=== PATIENT | female | born 1965 | race Two or more races ===

== ENCOUNTER 2021-10-01 11:12 | Outpatient (REF) | payer OTHER, SELFPAY ==
--- NOTE | ~2021-10-01 | XR_ITS ---
EXAMINATION: XR LUMBOSACRAL SPINE WITH OBLIQUES CLINICAL INFORMATION: M54.50 - Low back pain, unspecified COMPARISON: Chest radiographs 11/02/2018 TECHNIQUE: Lumbar spine is imaged in 5 views: AP, lateral, lateral view coned to lumbosacral junction, and bilateral oblique. FINDINGS: There is normal lumbar segmentation with 5 nonrib-bearing lumbar vertebrae with normal lumbar lordosis. There is mild accentuated superior endplate concavity at L1 without wedging of the vertebral body. Finding is new from lateral chest radiographs 11/02/2018. There are degenerative disc changes at this level with mild endplate sclerosis and disc narrowing and anterior vertebral spurring. Disc narrowing also present at L4-L5, and borderline disc narrowing at L2-L3. There is no destructive process. No spondylolysis or spondylolisthesis. The SI joints and visualized sacrum are unremarkable. 2 surgical clips are seen right lower quadrant abdomen. XR/XR lumbar spine 4V min IMPRESSION: 1. Accentuated superior endplate concavity L1 with associated degenerative disc changes T12-L1. Findings new since remote chest radiographs 11/02/2018. 2. Degenerative disc changes also at L2-L3 and L4-L5. 3. SI joints unremarkable.
[2021-10-01 14:44] LABS: Alanine Aminotransferase 23 U/L (0-31); Anion Gap 13 (12-20); Aspartate Amino Transferase 30 U/L (5-31); Blood Urea Nitrogen 7 mg/dL (9-16); Calcium 9.4 mg/dL (8.4-10.2); Carbon Dioxide 26 mmol/L (22-29); Chloride 99 mmol/L (96-108); Cholesterol 155 mg/dL; Estimated Glomerular Filt Rate > 60; Glucose Fasting 109 mg/dL (60-99); HDL Cholesterol 50 mg/dL; LDL Cholesterol Calculated 76 mg/dl; Sodium 134 mmol/L (135-145); Triglycerides 147 mg/dL
[2021-10-01 14:54] LABS: TSH reflex Free T4 1.91 uIU/mL (0.32-4.0); Vitamin D 25-OH Total 16.5 ng/mL (>30)
== END 2021-10-01 11:13 | disposition home or self-care (01) ==
LOC: HO.HMGCX 11:12
PROVIDERS: PCP Internal Medicine; Visit Provider Internal Medicine
DX: G89.29 Other chronic pain (principal); M54.50 Low back pain, unspecified; R53.83 Other fatigue; E78.5 Hyperlipidemia, unspecified; I10 Essential (primary) hypertension; Z78.0 Asymptomatic menopausal state; Z83.49 Family history of other endocrine, nutritional and metabolic diseases
CPT/HCPCS: 36415; 72110; 80048; 80061; 82306; 84443; 84450; 84460

== ENCOUNTER → 2022-01-14 14:32 | Outpatient (BNVA) | payer OTHER, SELFPAY | PROVIDERS: PCP Internal Medicine; Referring Provider Internal Medicine; Visit Provider Nurse Practitioner Family | DX: Z01.818 Encounter for other preprocedural examination (principal); K58.9 Irritable bowel syndrome, unspecified | CPT/HCPCS: 99202 ==

== ENCOUNTER 2022-01-24 12:09 | Outpatient (REF) | payer OTHER, SELFPAY ==
--- NOTE | ~2022-01-24 | MM_ITS ---
EXAMINATION: MM SCREENING DIGITAL BREAST TOMOSYNTHESIS, BILATERAL CLINICAL INFORMATION: Screening. Asymptomatic. The lifetime risk of breast cancer based on the Tyrer-Cuzick Model is 9%. COMPARISON: Outside mammography: 03/20/2019, 04/05/2017, 03/28/2016 ([facility]). TECHNIQUE: Digital breast tomosynthesis is performed in both the craniocaudal and mediolateral oblique views along with computer-aided detection (CAD). Synthesized 2D images are generated from the tomosynthesis. Additional bilateral CC and additional bilateral MLO views are provided. FINDINGS: There are scattered areas of fibroglandular density (ACR BI-RADS breast composition Category b). There are no significant masses, abnormal calcifications, or other abnormalities. Parenchymal pattern is similar to prior outside studies. No developing density or interval architectural abnormality. The axilla and skin contours are unremarkable. MM/MM tomosynthesis screening BI IMPRESSION: No mammographic evidence of malignancy. ASSESSMENT: BI-RADS 1: Negative RECOMMENDATION: Routine annual mammography screening. This patient's information was entered into a reminder system with a target due date for their next mammogram.
--- NOTE | 2022-01-24 17:41 | PFT_ITS ---
FLOWS: FEV1 75% of predicted at 2.05 L. FVC 77% of predicted at 2.68 L. FEV1 to FVC ratio of 0.76. No bronchodilator response. LUNG VOLUMES: Total lung capacity 92% of predicted at 4.67 L. Residual volume 108% of predicted at 2.03 L. Slow vital capacity 83% of predicted at 2.64 L. Expiratory reserve volume 21% of predicted at 0.21 L. Diffusion capacity is mildly decreased, diffusion capacity corrects to normal after adjustment for alveolar ventilation. IMPRESSION: No obstructive or restrictive ventilatory defect. No bronchodilator response. Decreased expiratory reserve volume suggests extrathoracic restriction, likely secondary to abdominal obesity. Jorge Alberto Huggins MD AP/MODL / [id number]
== END 2022-01-24 12:10 | disposition home or self-care (01) ==
LOC: HO.RESP 12:09
PROVIDERS: PCP Internal Medicine; Visit Provider Internal Medicine
DX: Z12.31 Encounter for screening mammogram for malignant neoplasm of breast (principal); F17.210 Nicotine dependence, cigarettes, uncomplicated
CPT/HCPCS: 77063; 77067; 94060; 94727; 94729

== ENCOUNTER → 2022-02-17 13:08 | Outpatient (BNVA) | payer OTHER, SELFPAY | PROVIDERS: PCP Internal Medicine; Visit Provider Surgery Vascular Surgery | DX: I83.11 Varicose veins of right lower extremity with inflammation (principal) | CPT/HCPCS: 99202 ==

== ENCOUNTER 2022-04-27 12:18 | Outpatient (REF) | payer OTHER, SELFPAY ==
[2022-04-27 14:12] LABS: Estimated Average Glucose 111 mg/dL; Hemoglobin A1c % 5.5 %
[2022-04-27 14:21] LABS: Alanine Aminotransferase 32 U/L (0-31); Anion Gap 14 (12-20); Aspartate Amino Transferase 33 U/L (5-31); Blood Urea Nitrogen 13 mg/dL (9-16); Calcium 9.3 mg/dL (8.4-10.2); Carbon Dioxide 27 mmol/L (22-29); Chloride 100 mmol/L (96-108); Cholesterol 143 mg/dL; Estimated Glomerular Filt Rate > 60; Glucose Fasting 123 mg/dL (60-99); HDL Cholesterol 57 mg/dL; LDL Cholesterol Calculated 52 mg/dl; Potassium 3.7 mmol/L (3.3-5.1); Sodium 137 mmol/L (135-145); Triglycerides 172 mg/dL
[2022-04-27 14:33] LABS: Vitamin D 25-OH Total 27.2 ng/mL (>30)
== END 2022-04-27 12:19 | disposition home or self-care (01) ==
LOC: HO.HMGCLDS 12:18
PROVIDERS: PCP Internal Medicine; Visit Provider Internal Medicine
DX: E55.9 Vitamin D deficiency, unspecified (principal); E66.01 Morbid (severe) obesity due to excess calories; E78.5 Hyperlipidemia, unspecified; F32.A Depression, unspecified; F41.9 Anxiety disorder, unspecified; I10 Essential (primary) hypertension; I83.899 Varicose veins of unspecified lower extremity with other complications
CPT/HCPCS: 36415; 80048; 80061; 82306; 83036; 84450; 84460

== ENCOUNTER 2022-06-01 08:33 | Day surgery (SDC) | payer OTHER, SELFPAY ==
[2022-05-27 09:53] VITALS: BMI 41.1
--- NOTE | 2022-05-31 08:42 | P.CONAN_ITS ---
Documented by User: Ayla Bill NP 05/31/22 08:44 HPI - Anesthesia Eval Consult details Narrative: 56yo F for Colonoscopy PMFSH Active Problems Active Problems: All Active Problems (Updated 04/27/22 @ 12:17 by Yvette Louis MD) Peripheral neuropathy (Acute) Smoker unmotivated to quit (Acute) Varicose veins of right lower extremity with inflammation (Acute) Immunization declined (Acute) Varicose veins of leg with swelling (Acute) Vitamin D deficiency, unspecified (Acute) Environmental allergies (Acute) Anxiety and depression (Acute) Morbid obesity (Acute) Family history of thyroid disease in mother (Acute) Cigarette smoker (Acute) Dyslipidemia (Acute) Essential hypertension (Acute) Chronic low back pain (Acute) Past Medical History Medical History Anxiety and depression Chronic low back pain Cigarette smoker Dyslipidemia Environmental allergies Essential hypertension Family history of thyroid disease in mother Immunization declined Morbid obesity Peripheral neuropathy Smoker unmotivated to quit Varicose veins of leg with swelling Vitamin D deficiency, unspecified Family History Family History Father Substance use disorder Social History Social History Housing: Apartment Patient Tobacco Use Status: Current everyday Tobacco user Cigarettes Per Day: 10 e-Cigarette/Vaping Use: Never Used Advance Directives: No Advance Directives Information Provided: Yes service: No Current occupational status: unemployed Cognitive needs: No Hearing needs: No Vision needs: No Meds Allergies Allergy/AdvReac Type Severity Reaction Status Date / Time shellfish derived Allergy Unknown anaphylaxis Verified 04/27/22 17:43 [SHELLFISH DERIVED] phenazopyridine AdvReac Unknown VOMITING Verified 04/27/22 17:43 [From PYRIDIUM] pregabalin [From LYRICA] AdvReac Unknown nausea and Verified 04/27/22 17:43 vomiting Home Medications Medication Instructions Recorded Confirmed Last Taken Type azelastine 137 mcg (0.1 %) nasal 2 spray intranasal BID 06/26/21 01/08/22 Unknown History spray aerosol olopatadine 0.1 % eye drops 0 drp ophthalmic (eye) 09/23/21 01/08/22 Unknown History vitamin B complex (B 1 tab PO DAILY 09/23/21 01/08/22 Unknown History Complex-Vitamin B12 tablet) diphenhydramine HCl 25 mg tablet 25 mg PO QID PRN 10/25/21 01/08/22 Unknown History (Benadryl Allergy) zinc 50 mg tablet 50 mg PO DAILY 01/08/22 01/08/22 Unknown History Exam Exam Date and Time: May 31, 2022 0842 Height,Weight and Vital Signs: Height 5 ft 4 in Weight 108.862 kg Pertinent Lab Results Pertinent Lab Results: Laboratory Tests 11/02/18 04/27/22 05:47 12:22 WBC 8.1 Hgb 15.3 Hct 44.9 Plt Count 168 D Sodium 137 Potassium 3.7 Chloride 100 Carbon Dioxide 27 BUN 13 D Creatinine 0.67 Narrative Narrative: PFT 01/2022 IMPRESSION:? No obstructive or restrictive ventilatory defect.? No bronchodilator response. Decreased expiratory reserve volume suggests extrathoracic restriction, likely secondary to abdominal obesity. Assessment and Plan Assessment Anesthesia Assessment: Chart Reviewed Documented by User: Emilie Andino MD 06/01/22 09:01 [facility] Past Medical History Medical History Anxiety and depression Chronic low back pain Cigarette smoker Dyslipidemia Environmental allergies Essential hypertension Family history of thyroid disease in mother Immunization declined Morbid obesity Peripheral neuropathy Smoker unmotivated to quit Varicose veins of leg with swelling Vitamin D deficiency, unspecified Family History Family History Father Substance use disorder Family history of problems with anesthesia: No Surgical History History of Problems with Anesthesia: No Social History Social History Housing: Apartment Patient Tobacco Use Status: Current everyday Tobacco user Cigarettes Per Day: 10 e-Cigarette/Vaping Use: Never Used Advance Directives: No Advance Directives Information Provided: Yes service: No Current occupational status: unemployed Cognitive needs: No Hearing needs: No Vision needs: No Meds Allergies Allergy/AdvReac Type Severity Reaction Status Date / Time shellfish derived Allergy Unknown anaphylaxis Verified 04/27/22 17:43 [SHELLFISH DERIVED] phenazopyridine AdvReac Unknown VOMITING Verified 04/27/22 17:43 [From PYRIDIUM] pregabalin [From LYRICA] AdvReac Unknown nausea and Verified 04/27/22 17:43 vomiting Home Medications Medication Instructions Recorded Confirmed Last Taken Type azelastine 137 mcg (0.1 %) nasal 2 spray intranasal BID 06/26/21 01/08/22 Unknown History spray aerosol olopatadine 0.1 % eye drops 0 drp ophthalmic (eye) 09/23/21 01/08/22 Unknown History vitamin B complex (B 1 tab PO DAILY 09/23/21 01/08/22 Unknown History Complex-Vitamin B12 tablet) diphenhydramine HCl 25 mg tablet 25 mg PO QID PRN 10/25/21 01/08/22 Unknown History (Benadryl Allergy) zinc 50 mg tablet 50 mg PO DAILY 01/08/22 01/08/22 Unknown History Exam Airway Mallampati Class: II TM Dist: >3cm Neck ROM: Full Heart: rrr Lungs: cta Assessment and Plan Assessment Anesthesia Assessment: Anesthesia Plan Discussed and Chart Reviewed Final Anesthetic Review Family History of Problems with Anesthesia: No History of Problems with Anesthesia: No NPO: Yes ASA Class: III Final Preanesthetic Review: No Changes in Pt Med Stat, Meds/Allgs Chart Reviewed and Consent Obtained/Reviewed Patient Risk: Intermediate Procedure Risk: Intermediate Anesthetic Plan Anesthetic Plan: MAC: Disposition: Standard PACU
[2022-06-01 08:43] VITALS: BMI 41.1
[2022-06-01 09:13] VITALS: BP 170/71; PULSE 84; RESP 18; TEMP 36.6; O2SAT 98
[2022-06-01] MEDS: Lactated Ringers 1,000 ML 100 ML IVCONT (09:13)
--- NOTE | 2022-06-01 09:31 | P.HPSUR_ITS ---
Pre-Procedural Eval Section A Date of Service: 06/01/22 Section B Chief Complaint: screening Relevant Family History (Specify if Yes): No Relevant Social History: Tobacco Use (alcohol use) Present Medications: see Short Stay Collaborative assessment Medical History: Significant History (Anxiety and depression Chronic low back pain Cigarette smoker Dyslipidemia Environmental allergies Essential hyperten flavia Family history of thyroid disease in mother Immunization declined Morbid obesity Peripheral neuropathy Smoker unmotivated to quit Varicose veins of leg with swelling Vitamin D de) History of Previous Operations: No relevant previous surgery Allergies: Allergies Allergy/AdvReac Type Severity Reaction Status Date / Time shellfish derived Allergy Unknown anaphylaxis Verified 04/27/22 17:43 [SHELLFISH DERIVED] phenazopyridine AdvReac Unknown VOMITING Verified 04/27/22 17:43 [From PYRIDIUM] pregabalin [From LYRICA] AdvReac Unknown nausea and Verified 04/27/22 17:43 vomiting Review of Systems Sugical H&P ROS: Negative: Constitution, Cardiovascular, Respiratory, Neurological, Psychiatric, Hem-Onc, Allergic/Immunologic, Gastrointestinal, Genitourinary, Musculoskeletal, Integumentary, Endocrine and Eyes/Ears/Nose/Throat Exam Surgical H&P Exam: Normal: HEENT, Normal: Heart, Normal: Lungs, Normal: Extremities, Normal: Abdomen, Normal: Skin and Normal: Neurological Plan Diagnosis/Plan: Unchanged I have reviewed the history and physical and performed a pertinent physical examination on my patient. No changes have occurred unless specified.
--- NOTE | 2022-06-01 09:33 | W.PM.OPN ---
Operative Note Operative Note Date of Service: 06/01/22 Narrative: Operative Information Procedure Description: Colonoscopy Indication: screening Anesthesia: MAC COLONOSCOPY Instrument: Olympus variable stiffness pediatric scope 190L Colonoscopy Monitoring: Vital signs and clinical assessment, continuous EKG monitoring, Pulse oximetry, Carbon Dioxide monitoring and blood pressure monitoring were done throughout the procedure. Colon withdrawal time was 31 minutes. Procedure: The patient was placed in the left lateral decubitis position and pre-procedure medications were administered. After a digital rectal examination of the ano-rectum, the video colonoscope was inserted into the rectum and advanced through the colon to the cecum/TI. The colonoscope was slowly withdrawn in a retrograde panoramic fashion and the colon mucosa was carefully examined including a retroflexed view of the rectum. Findings and interventions are described below. Procedure Difficulty: difficult due to looping, patient moving a lot even with propofol Findings: Terminal Ileum-not intubated Cecum:several diverticula seen. 12 mm sessile polyp injected with ORISE and then removed with hot snare, with edges ablated with soft tip coag and then one clip applied for hemostasis. Ascending Colon: normal Transverse Colon -normal Descending Colon: 6-7 mm sessile polyp removed with forceps and 8-9 mm sessile polyp removed with cold snare Sigmoid Colon: moderate diverticulosis Rectum: Retroflexion with small internal hemorrhoids, grade I, 2 sessile polyps 5-6 mm removed with cold forceps Anorectum - normal Colon preparation: [place] Bowel Preparation Scale Right colon; 2 Transverse colon: 2 Left colon; 2 (0 = Unprepared colon segment with mucosa not seen due to solid stool that cannot be cleared. 1 = Portion of mucosa of the colon segment seen, but other areas of the colon segment not well seen due to staining, residual stool and/or opaque liquid. 2 = Minor amount of residual staining, small fragments of stool and/or opaque liquid, but mucosa of colon segment seen well. 3 = Entire mucosa of colon segment seen well with no residual staining, small fragments of stool or opaque liquid) Impression and Post Procedure Diagnosis: polyps internal hemorrhoids diverticular disease Plan: High fiber diet leaflet Avoid straining at stool, epsom salts and sitz bath, anusol supps or cream Repeat Colonoscopy in 1-2 years due to subtle polyps and patient movement during procedure or earlier if clinically indicated Next time use adult colonoscope Above findings were reviewed with the patient and relevant handouts were provided if indicated.
[2022-06-01 10:35] VITALS: BP 111/63; PULSE 87; RESP 16; TEMP 36.6; O2SAT 96
[2022-06-01 10:50] VITALS: BP 128/65; PULSE 78; RESP 16; O2SAT 98
[2022-06-01 11:05] VITALS: BP 133/77; PULSE 76; RESP 16; TEMP 36.6; O2SAT 98
== END 2022-06-01 11:37 | disposition home or self-care (01) ==
PROVIDERS: PCP Internal Medicine; Visit Provider Internal Medicine Gastroenterology
PROC: 0DJD8ZZ Inspection of Lower Intestinal Tract, Via Natural or Artificial Opening Endoscopic (ICD-10-PCS; CPT 45378; principal; 2022-06-01 10:10)
DX: Z12.11 Encounter for screening for malignant neoplasm of colon (principal); D12.0 Benign neoplasm of cecum; K63.5 Polyp of colon; K62.1 Rectal polyp; K57.30 Diverticulosis of large intestine without perforation or abscess without bleeding; K64.0 First degree hemorrhoids; K58.9 Irritable bowel syndrome, unspecified; I10 Essential (primary) hypertension; E78.5 Hyperlipidemia, unspecified; E55.9 Vitamin D deficiency, unspecified; J44.9 Chronic obstructive pulmonary disease, unspecified; I83.10 Varicose veins of unspecified lower extremity with inflammation; G89.29 Other chronic pain; M54.50 Low back pain, unspecified; Z79.899 Other long term (current) drug therapy; Z88.8 Allergy status to other drugs, medicaments and biological substances; F41.8 Other specified anxiety disorders; F17.210 Nicotine dependence, cigarettes, uncomplicated; Z91.09 Other allergy status, other than to drugs and biological substances
CPT/HCPCS: 45385; 45380; 45381; 88305; J2250

== ENCOUNTER → 2022-06-15 12:57 | Outpatient (BNVA) | payer OTHER, SELFPAY | PROVIDERS: PCP Internal Medicine; Visit Provider Nurse Practitioner Family | DX: K57.90 Diverticulosis of intestine, part unspecified, without perforation or abscess without bleeding (principal); K63.5 Polyp of colon; Z98.890 Other specified postprocedural states | CPT/HCPCS: 99212 ==

== ENCOUNTER 2022-08-09 12:54 | Outpatient (REF) | payer OTHER, SELFPAY ==
--- NOTE | ~2022-08-09 | US_ITS ---
EXAMINATION: US LOWER EXTREMITY VENOUS (REFLUX EXAM), BILATERAL CLINICAL INDICATION: Chronic venous insufficiency with lower extremity varicose veins COMPARISON: None. TECHNIQUE: Color flow triplex imaging and compression Doppler was performed to evaluate both the deep and the superficial systems bilaterally. To evaluate the superficial system, the examination was performed in the upright position. Color-flow Doppler ultrasound and compression ultrasound were utilized. In addition, maneuvers were utilized to demonstrate reflux. FINDINGS: 1. DEEP VENOUS ULTRASOUND OF THE RIGHT LOWER EXTREMITY: Common Femoral Vein: Compressible, normal respiratory variation and augmented flow. Femoral Vein: Compressible, normal color flow and augmentation. Popliteal Vein: Compressible, normal augmentation. Deep Reflux: There is no evidence of reflux in the deep system in either the common femoral vein or the popliteal vein. There is no evidence of a Perry's cyst. 2. SUPERFICIAL ULTRASOUND WITH DOPPLER OF RIGHT LOWER EXTREMITY: GREAT SAPHENOUS VEIN: Saphenofemoral Junction: 0.8 cm; Reflux: 0 ms Proximal Thigh: 0.8 cm; Reflux: 0 ms Mid Thigh: 0.4 cm; Reflux: 0 ms Above Knee: 0.4 cm; Reflux: 0 ms At Knee: 0.3 cm; Reflux: 0 ms Below Knee: 0.2 cm; Reflux: 0 ms Mid Calf: 0.3 cm; Reflux: 0 ms Ankle: 0.3 cm; Reflux: 0 ms DUPLICATED MEDIAL GREAT SAPHENOUS VEIN: Diameter: None Imaged Reflux: NA DUPLICATED LATERAL GREAT SAPHENOUS VEIN: Diameter: 0.2 cm Reflux: None SMALL SAPHENOUS VEIN: Proximal: 0.2 cm; Reflux: 0 ms Distal: 0.2 cm; Reflux: 0 ms VEIN OF GIACOMINI: None Imaged. PERFORATORS: Location: None Imaged Size: NA Reflux: NA VARICOSITIES: Location: Proximal thigh Size: 0.3 cm Reflux: None 3. DEEP VENOUS ULTRASOUND OF THE LEFT LOWER EXTREMITY: Common Femoral Vein: Compressible, normal respiratory variation and augmented flow. Femoral Vein: Compressible, normal color flow and augmentation. Popliteal Vein: Compressible, normal augmentation. Deep Reflux: There is no evidence of reflux in the deep system in either the common femoral vein or the popliteal vein. There is no evidence of a Perry's cyst. 4. SUPERFICIAL ULTRASOUND WITH DOPPLER OF LEFT LOWER EXTREMITY: GREAT SAPHENOUS VEIN: Saphenofemoral Junction: 0.7 cm; Reflux: 0 ms Proximal Thigh: 0.8 cm; Reflux: 0 ms Mid Thigh: 0.5 cm; Reflux: 0 ms Above Knee: 0.3 cm; Reflux: 0 ms At Knee: 0.4 cm; Reflux: 0 ms Below Knee: 0.3 cm; Reflux: 692 ms Mid Calf: 0.2 cm; Reflux: 720 ms Ankle: 0.3 cm; Reflux: 0 ms DUPLICATED MEDIAL GREAT SAPHENOUS VEIN: Diameter: None Imaged Reflux: NA DUPLICATED LATERAL GREAT SAPHENOUS VEIN: Diameter: 0.4 cm Reflux: None SMALL SAPHENOUS VEIN: Proximal: 0.3 cm; Reflux: 0 ms Distal: 0.2 cm; Reflux: 0 ms VEIN OF GIACOMINI: None Imaged. PERFORATORS: Location: None Imaged Size: NA Reflux: NA VARICOSITIES: Location: Proximal and mid thigh Size: 0.3 cm Reflux: None US/US venous duplex LE BI IMPRESSION: Right: No significant venous insufficiency. Small varicose veins within the proximal thigh Left: Borderline mild to moderate focal reflux in the left great saphenous vein within the calf. Small varicose veins within the thigh
== END 2022-08-09 12:55 | disposition home or self-care (01) ==
LOC: HO.US 12:54
PROVIDERS: Visit Provider Surgery Vascular Surgery
DX: I83.11 Varicose veins of right lower extremity with inflammation (principal)
CPT/HCPCS: 93970

== ENCOUNTER → 2022-08-23 13:01 | Outpatient (BNVA) | payer OTHER, SELFPAY | PROVIDERS: PCP Internal Medicine; Visit Provider Surgery Vascular Surgery | DX: I83.11 Varicose veins of right lower extremity with inflammation (principal); I89.0 Lymphedema, not elsewhere classified | CPT/HCPCS: 99212 ==

== ENCOUNTER 2022-11-02 10:32 | Outpatient (AMB) | payer OTHER, SELFPAY ==
--- NOTE | 2022-11-02 10:43 | MHC.PC.OV ---
Vital Signs 11/02/22 10:44 Height 5 ft 4 in Weight 245 lb BMI 42.0 BP 132/72 Blood Pressure Location Lt brachial Position Sitting Pulse 88 Pulse Source Pulse Oximeter Pulse Oximetry (%) 98 Oxygen Delivery Method Room Air Intake Visit Reasons: 6 month follow up Intake Note: Pt is here today for her 6 months f/u HTN Allergies shellfish derived [SHELLFISH DERIVED] Allergy (Severe, Verified 10/19/23 13:59) anaphylaxis phenazopyridine [From PYRIDIUM] Adverse Reaction (Intermediate, Verified 10/19/23 13:59) VOMITING pregabalin [From LYRICA] Adverse Reaction (Intermediate, Verified 10/19/23 13:59) nausea and vomiting Medication List - Last Reconciled 11/02/22 by Yvette Louis MD atorvastatin 20 mg PO DAILY buspirone 5 mg PO BID furosemide 20 mg PO DAILY PRN gabapentin 600 mg (2 x 300 mg) PO TID 30 days losartan-hydrochlorothiazide 50-12.5 mg 1 tab PO DAILY multivitamin 1 tab PO DAILY Ventolin HFA 90 mcg/actuation (albuterol sulfate) 2 puffs inhalation Q6H PRN NS vitamin B complex (B Complex-Vitamin B12 tablet) 1 tab PO DAILY Tobacco use date assessed: 11/02/22 HPI 6 month follow up HPI Details 57-year-old lady with hypertension, dyslipidemia, morbid obesity, here today for follow-up on her blood pressure. She currently takes losartan-HCTZ 50-12.5 mg once a day and takes an occasional furosemide as needed for leg swelling. She continues to smoke, with no desire to quit at present time. Recurrent sneezing current postnasal drainage. [facility] Medical History (Updated 11/19/23 @ 00:49 by Yvette Louis MD) Smoker Knee pain, right Former cigarette smoker Varicose veins of right lower extremity with inflammation Immunization declined Morbid obesity Family history of thyroid disease in mother Chronic low back pain History of uterine cancer Asthma Lymphedema Allergic rhinitis Diverticulosis Peripheral neuropathy Smoker unmotivated to quit Varicose veins of leg with swelling Vitamin D deficiency, unspecified Environmental allergies Anxiety and depression Cigarette smoker Dyslipidemia Essential hypertension Surgical History H/O tubal ligation History of appendectomy H/O colonoscopy Family History Father Substance use disorder Social History Housing: Apartment Patient Tobacco Use Status: Former Tobacco user Tobacco use type: Cigarette Smoked in Last 30 Days: No e-Cigarette/Vaping Use: Never Used Advance Directives: No Advance Directives Information Provided: No Healthcare Proxy: No Guardian: No Patient : No service: No Current occupational status: unemployed Cognitive needs: No Hearing needs: No Vision needs: No Questionnaire PHQ-9 Over the last 2 weeks, how often have you been bothered by any of the following problems? 1. Little interest or pleasure in doing things: several days 2. Feeling down, depressed, or hopeless: not at all 3. Trouble falling or staying asleep, or sleeping too much: nearly every day 4. Feeling tired or having little energy: more than half the days 5. Poor appetite or overeating: several days 6. Feeling bad about yourself - or that you are a failure or have let yourself or your family down: not at all 7. Trouble concentrating on things, such as reading the newspaper or watching television: several days 8. Moving or speaking so slowly that other people could have noticed. Or the opposite - being so fidgety or restless that you have been moving around a lot more than usual: not at all 9. Thoughts that you would be better off or of hurting yourself in some way: not at all Total score: 8 Depression Screening Interpretation: Negative 29086 - PHQ-9 Billing: Yes Source: Developed by Drs. Jimenez Kahn, Harleen Quach, Cedric Mederos and colleagues, with an educational jonathan from [employer]. Thrive Questionnaire Date Thrive assessed: 11/02/22 I am a: Patient What is your living situation today?: I have a steady place to live Within the past 12 months, did the food you bought not last and you didn't have the money to get more?: Never true Within the past 12 months, did you worry whether your food would run out before you got money to buy more?: Never true Do you have trouble paying for medicines?: No Do you have trouble getting transportation to medical appointments?: No Do you have trouble paying your heating and electricity bill?: No Do you have trouble taking care of your child, family member or friend?: No Do you have trouble with day-to-day activities such as bathing, preparing meals, shopping, managing finances, etc.?: Yes Are you currently unemployed and looking for a job?: No Are you interested in more education?: No PRASHANTH-7 AMB Questionnaire PRASHANTH-7 Date PRASHANTH - 7 assessed: 11/02/22 Feeling nervous, anxious, or on edge: 1 = Several days Not being able to stop or control worryin = Several days Worrying too much about different things: 1 = Several days Trouble relaxin = Several days Being so restless that it is hard to sit still: 1 = Several days Becoming easily annoyed or irritable: 1 = Several days Feeling afraid as if something awful might happen: 0 = Not at all Total PRASHANTH-7 score (0-4 normal; 5-9 mild; 10-14 moderate; 15-21 severe): 6 Source: Developed by Drs. Jimenez Kahn, Harleen Quach, Cedric Mederos and colleagues, with an educational jonathan from [employer]. PRASHANTH-7 Assessment Billing PRASHANTH-7 Assessment Tool: PRASHANTH-7 Assessment 78017 Review of Systems Const Reports no additional complaints Eyes Reports no additional complaints ENT Reports no additional complaints and Reports Normal hearing present Card Denies chest pain, Denies chest pain at rest and Denies chest pain with activity Resp Denies chest congestion and Denies cough GI Reports no additional complaints Reports no additional complaints Musc Reports abnormal gait and Reports arthralgias (Right knee) Skin/Breast Denies lesions, Denies rash and Denies wounds Neuro Reports no additional complaints, Reports Normal hearing present, Reports abnormal gait and Denies Sensory deficit (Neuro) Psych Denies no additional complaints Endo Reports no additional complaints Physical exam (Primary Care) Vital Signs: Last Vital Signs Pulse 88 11/02/22 10:44 BP 132/72 11/02/22 10:44 Pulse Ox 98 11/02/22 10:44 Oxygen Delivery Method Room Air 11/02/22 10:44 BMI result Body Mass Index 42.0 Tobacco/Smoking Status: Tobacco use Status Tobacco use date assessed 11/02/22 11/02/22 10:50 Patient Tobacco Use Status Former Tobacco user 11/02/22 10:50 Tobacco use type Cigarette 11/02/22 10:50 e-Cigarette/Vaping Use Never Used 11/02/22 10:50 PHQ-9: PHQ-9 Score PHQ-9: Total score 10 11/02/22 11:14 Depression Screening Interpretation: Negative Thrive Assessment: Date of Thrive Assessment Date Thrive assessed 11/02/22 11/02/22 10:54 Const General: cooperative, no acute distress and alert Orientation/consciousness: patient oriented x3 Limitations: No altered mental status HENMT Ears: hearing grossly normal bilaterally, external ears normal, TM's normal bilaterally and EAC's normal General nose exam: Normal external nose present Face and sinus: Yes face symmetric Mouth: Normal oral and palatal mucosa present, oropharynx normal and moist mucous membranes Eyes Conjunctivae: conjunctivae normal Sclerae: sclerae normal Pupils: Equal, round and reactive pupils present EOM: EOMs intact bilaterally Neck Neck: Yes full ROM and Yes no lymphadenopathy Thyroid: Thyroid normal Resp Effort & Inspection: normal respiratory effort and able to speak in complete sentences Auscultation: clear to auscultation bilaterally Cardio Jugular venous distension: no JVD Rate: regular rate Rhythm: regular rhythm Heart sounds: S1 normal heart sound present and S2 normal heart sound present GI Inspection: Yes normal to inspection Palpation (GI): Soft to palpation Auscultation: normal bowel sounds Back/Spine/Pelvis Thoracic/Lumbar Spine: thoracic and lumbar spine normal to inspection Neuro General: patient oriented x3, gait normal, moves all extremities, no focal motor deficits and CN's II-XI intact bilaterally Cranial nerves: Yes Equal, round and reactive pupils present and Yes Normal hearing present Cognition (Neuro): normal cognition Gait exam (Neuro): Normal gait present Motor exam (neuro): 5/5 motor strength present throughout Sensory Exam: No Sensory deficit (Neuro) Extrem General: Yes normal to inspection, Yes full ROM, Yes normal gait and Yes pedal edema (With superficial varicosities in both lower extremities) Psych Appearance: grossly normal and well kempt Mental Status: mental status grossly normal Speech and movement: Normal speech and movement present Affect: normal affect Attitude: cooperative Thought process: Normal thought process present Thought content: Normal thought content present Assessment and Plan Assessment & Plan (1) Essential hypertension: Code(s): I10 - Essential (primary) hypertension Plan: Blood pressure at goal of less than 130/80. Continue with current medication. Reinforced importance of following a low sodium diet, getting regular exercise, and lowering stress levels. (2) Allergic rhinitis: Code(s): J30.9 - Allergic rhinitis, unspecified Qualifiers: Allergic rhinitis trigger: unspecified Allergic rhinitis seasonality: unspecified Qualified Code(s): J30.9 - Allergic rhinitis, unspecified Plan: Prescription sent for Azelastine nasal spray, to use as directed (3) Vitamin D deficiency, unspecified: Code(s): E55.9 - Vitamin D deficiency, unspecified Plan: Will check vitamin-D level (4) Dyslipidemia: Code(s): E78.5 - Hyperlipidemia, unspecified Plan: Fasting lipid panel ordered, liver enzymes (5) Peripheral neuropathy: Code(s): G62.9 - Polyneuropathy, unspecified Plan: Continued on gabapentin (6) Anxiety and depression: Code(s): F41.9 - Anxiety disorder, unspecified; F32.A - Depression, unspecified Plan: Refill prescription sent for buspirone 5 mg per tab Orders: Orders XR knee RT 4V 11/02/22 M25.561 - Pain in right knee Lipid Panel 11/02/22 E55.9 - Vitamin D deficiency, unspecified, E66.01 - Morbid (severe) obesity due to excess calories, E78.5 - Hyperlipidemia, unspecified, I10 - Essential (primary) hypertension Hemoglobin A1c 11/02/22 E55.9 - Vitamin D deficiency, unspecified, E66.01 - Morbid (severe) obesity due to excess calories, E78.5 - Hyperlipidemia, unspecified, I10 - Essential (primary) hypertension Vitamin D 25-OH Total 11/02/22 E55.9 - Vitamin D deficiency, unspecified, E66.01 - Morbid (severe) obesity due to excess calories, E78.5 - Hyperlipidemia, unspecified, I10 - Essential (primary) hypertension Basic Metabolic Panel Fasting 3 Months E55.9 - Vitamin D deficiency, unspecified, E66.01 - Morbid (severe) obesity due to excess calories, E78.5 - Hyperlipidemia, unspecified, I10 - Essential (primary) hypertension Alanine Aminotransferase 11/02/22 E55.9 - Vitamin D deficiency, unspecified, E66.01 - Morbid (severe) obesity due to excess calories, E78.5 - Hyperlipidemia, unspecified, I10 - Essential (primary) hypertension Aspartate Amino Transferase 11/02/22 E55.9 - Vitamin D deficiency, unspecified, E66.01 - Morbid (severe) obesity due to excess calories, E78.5 - Hyperlipidemia, unspecified, I10 - Essential (primary) hypertension Medications: New tramadol 50 mg PO DAILY PRN 10 tabs 0RF pain M25.561 - Pain in right knee Changed From azelastine 2 sprays intranasal BID J30.9 - Allergic rhinitis, unspecified To azelastine 2 sprays intranasal BID 30 mL 3RF J30.9 - Allergic rhinitis, unspecified From Ventolin HFA 90 mcg/actuation 2 puffs inhalation Q6H PRN 18 grams 2RF shortness of breath or wheezing NS To Ventolin HFA 90 mcg/actuation (albuterol sulfate) 2 puffs inhalation Q6H PRN 18 grams 2RF shortness of breath or wheezing NS Refilled buspirone 5 mg PO BID 180 tabs 1RF Coding Level of Care Code Tele Est Pt Level 3 (15684) Diagnoses Essential hypertension I10 Allergic rhinitis, unspecified seasonality, unspecified trigger J30.9 Allergic rhinitis trigger: unspecified Allergic rhinitis seasonality: unspecified Vitamin D deficiency, unspecified E55.9 Dyslipidemia E78.5 Peripheral neuropathy G62.9 Anxiety and depression F41.9; F32.A Additional Codes PRASHANTH-7 Assessment Billing - PRASHANTH-7 Assessment Tool: PRASHANTH-7 Assessment [id number] ([id number])
[2022-11-02 10:44] VITALS: BP 132/72; PULSE 88; O2SAT 98; BMI 42.0
== END 2022-11-02 11:53 | disposition home or self-care (01) ==
LOC: HO.HMGC 10:32
PROVIDERS: PCP Internal Medicine; Visit Provider Internal Medicine
DX: I10 Essential (primary) hypertension (principal); J30.9 Allergic rhinitis, unspecified; E66.01 Morbid (severe) obesity due to excess calories; Z68.41 Body mass index [BMI] 40.0-44.9, adult; E55.9 Vitamin D deficiency, unspecified; E78.5 Hyperlipidemia, unspecified; G62.9 Polyneuropathy, unspecified; F41.9 Anxiety disorder, unspecified; F32.A Depression, unspecified
CPT/HCPCS: 99213; 99499

== ENCOUNTER 2023-04-04 10:35 | Outpatient (REF) | payer OTHER, SELFPAY ==
[2023-04-04 15:35] LABS: Estimated Average Glucose 111 mg/dL; Hemoglobin A1c % 5.5 %
[2023-04-04 16:03] LABS: Alanine Aminotransferase 25 U/L (0-31); Anion Gap 17 (12-20); Aspartate Amino Transferase 25 U/L (5-31); Blood Urea Nitrogen 10 mg/dL (9-16); Calcium 9.5 mg/dL (8.4-10.2); Carbon Dioxide 25 mmol/L (22-29); Chloride 100 mmol/L (96-108); Cholesterol 140 mg/dL; Estimated Glomerular Filt Rate > 60; Glucose Fasting 121 mg/dL (60-99); HDL Cholesterol 57 mg/dL; LDL Cholesterol Calculated 63 mg/dl; Potassium 3.7 mmol/L (3.3-5.1); Sodium 138 mmol/L (135-145); Triglycerides 103 mg/dL; Vitamin D 25-OH Total 64.8 ng/mL (>30)
== END 2023-04-04 10:36 | disposition home or self-care (01) ==
LOC: HO.HMGCLDS 10:35
PROVIDERS: PCP Internal Medicine; Visit Provider Internal Medicine
DX: E55.9 Vitamin D deficiency, unspecified (principal); E66.01 Morbid (severe) obesity due to excess calories; E78.5 Hyperlipidemia, unspecified; I10 Essential (primary) hypertension
CPT/HCPCS: 36415; 80048; 80061; 82306; 83036; 84450; 84460

== ENCOUNTER 2023-04-07 12:31 | Outpatient (AMB) | payer OTHER, SELFPAY ==
--- NOTE | 2023-04-07 13:05 | A.OFFPC_ITS ---
<Statement entered by Yvette Louis MD - 11/17/25 00:08> This note has been administratively?closed. Vital Signs 04/07/23 13:07 Height 5 ft 4 in Weight 251 lb BMI 43.1 BP 128/86 Blood Pressure Location Rt brachial Position Sitting Pulse 99 Pulse Source Pulse Oximeter Pulse Oximetry (%) 97 Oxygen Delivery Method Room Air Intake Visit Reasons: Annual Physical Intake Note: Pt is here today for her PE Allergies shellfish derived (SHELLFISH DERIVED) Allergy (Severe, Verified 06/23/25 11:31) anaphylaxis phenazopyridine (From PYRIDIUM) Adverse Reaction (Intermediate, Verified 06/23/25 11:31) VOMITING pregabalin (From LYRICA) Adverse Reaction (Intermediate, Verified 06/23/25 11:31) nausea and vomiting sertraline (From Zoloft) Adverse Reaction (Verified 06/23/25 11:31) suicidal ideation bees Allergy (Mild, Uncoded 06/23/25 11:31) Swelling Medication List - Last Reconciled 04/07/23 by Yvette Louis MD atorvastatin 20 mg PO DAILY buspirone 5 mg PO BID cholecalciferol (vitamin D3) 125 mcg PO Q2D furosemide 20 mg PO DAILY PRN gabapentin 600 mg (2 x 300 mg) PO TID 30 days losartan-hydrochlorothiazide 50-12.5 mg 1 tab PO DAILY multivitamin 1 tab PO DAILY Ventolin HFA 90 mcg/actuation (albuterol sulfate) 2 puffs inhalation Q6H PRN NS vitamin B complex (B Complex-Vitamin B12 tablet) 1 tab PO DAILY Tobacco use date assessed: 04/07/23 Dental Screening Dental Screen Date: 04/07/23 Did you have a dental visit in the last 12 months?: Yes Did you have a dental problem in the last 6 months where you did not have access to dental care?: Yes Was dental information given to patient?: Patient has dentist HPI Annual Physical HPI Details 57-year-old lady with dyslipidemia, hype rtension, allergic rhinitis, osteoarthritis, mild intermittent asthma, anxiety depression, and is an active smoker, not motivated at present time, here today for physical exam. She is due for her screening mammogram, up-to-date with her screening colonoscopy done 06/01/2022 with removal of 3 polyps, due again for recheck in 2 years, per Dr. Pierre. [facility] Medical History (Reviewed 09/29/25 @ 12:13 by MAR[facility] Abnormal mammogram of right breast History of uterine cancer Lymphedema Tachycardia Essential hypertension Dyslipidemia Morbid obesity Asthma Nicotine dependence, cigarettes, uncomplicated Allergic rhinitis Environmental allergies Vitamin D deficiency, unspecified Diverticulosis Chronic low back pain Peripheral neuropathy Knee pain, right Varicose veins of leg with swelling Anxiety and depression Family history of thyroid disease in mother Immunization declined Surgical History History of History of tubal ligation History of colonoscopy History of appendectomy Family History Father Substance use disorder Social History Housing: Apartment Patient Tobacco Use Status: Former Tobacco user Tobacco use type: Cigarette e-Cigarette/Vaping Use: Never Used service: No Current occupational status: unemployed Cognitive needs: No Hearing needs: No Vision needs: No Questionnaire Thrive Questionnaire Date Thrive assessed: 11/02/22 AUDIT C Alcohol Use Questionnaire (AUDIT-C) 1. How often do you have a drink containing alcohol?: 2-4 times a month 2. How many drinks containing alcohol do you have on a typical day when you are drinking?: 1 or 2 3. How often do you have six or more drinks on one occasion?: Never Total Score: 2 PRASHANTH-7 AMB Questionnaire PRASHANTH-7 Date PRASHANTH - 7 assessed: 11/02/22 Source: Developed by Drs. Jimenez Kahn, Harleen Quach, Cedric Mederos and colleagues, with an educational jonathan from [employer] Physical exam (Primary Care) Vital Signs: Last Vital Signs Pulse 99 04/07/23 13:07 BP 128/86 04/07/23 13:07 Pulse Ox 97 04/07/23 13:07 Oxygen Delivery Method Room Air 04/07/23 13:07 BMI result Body Mass Index 43.1 Tobacco/Smoking Status: Tobacco use Status Tobacco use date assessed 04/07/23 04/07/23 13:12 Patient Tobacco Use Status Former Tobacco user 04/07/23 13:05 Tobacco use type Cigarette 04/07/23 13:05 e-Cigarette/Vaping Use Never Used 04/07/23 13:05 Thrive Assessment: Date of Thrive Assessment Date Thrive assessed 11/02/22 04/07/23 13:05 Coding Level of Care Code Admin Sign Off/No Billing Diagnoses Allergic rhinitis J30.9 Dyslipidemia E78.5 Essential hypertension I10 Morbid obesity E66.01 Anxiety and depression F41.9; F32.A Immunization declined Z28.21 Lymphedema I89.0 Annual visit for general adult medical examination with abnormal findings Z00.01
[2023-04-07 13:07] VITALS: BP 128/86; PULSE 99; O2SAT 97; BMI 43.1
== END 2023-04-07 14:45 | disposition home or self-care (01) ==
PROVIDERS: Visit Provider Internal Medicine
DX: J30.9 Allergic rhinitis, unspecified (principal); E78.5 Hyperlipidemia, unspecified; I10 Essential (primary) hypertension; E66.01 Morbid (severe) obesity due to excess calories; F41.9 Anxiety disorder, unspecified; F32.A Depression, unspecified; Z28.21 Immunization not carried out because of patient refusal; I89.0 Lymphedema, not elsewhere classified; Z00.01 Encounter for general adult medical examination with abnormal findings
CPT/HCPCS: 99499

== ENCOUNTER 2023-05-31 12:57 | Outpatient (AMB) | payer OTHER, SELFPAY ==
[2023-05-31 13:02] VITALS: BP 132/64; PULSE 87; BMI 43.3
--- NOTE | 2023-05-31 13:02 | MHC.OFFVIS ---
Intake Vital Signs 05/31/23 13:02 Height 5 ft 4 in Weight 252 lb BMI 43.3 BP 132/64 Blood Pressure Location Rt brachial Position Sitting Pulse 87 Intake Visit Reasons: 1 year follow up rediscuss colonoscopy Intake Note: Patient presents to in office visit today in follow up to re discuss colonoscopy. CC: Patient c/o really bad swelling from BLE. She c/o constant loose stools, about 6 times a day. She also reports she was not able to take the Citrucel because the pill was too big. Senior Bioinformatics Specialist Required: No Accompanied by: Self / Same As Patient Allergies shellfish derived [SHELLFISH DERIVED] Allergy (Unknown, Verified 04/07/23 13:20) anaphylaxis phenazopyridine [From PYRIDIUM] Adverse Reaction (Unknown, Verified 04/07/23 13:20) VOMITING pregabalin [From LYRICA] Adverse Reaction (Unknown, Verified 04/07/23 13:20) nausea and vomiting HPI 1 year follow up rediscuss colonoscopy HPI Details LAST VISIT (1) Diverticulosis: ?Code(s): K57.90 - Diverticulosis of intestine, part unspecified, without perforation or abscess without bleeding ?Plan: Diverticulosis found on colonoscopy.? Patient will need to increase fiber in her diet.? Patient states that she eats lot of vegetables.? She will take [id number] fiber supplement. (2) Status post colonoscopy: ?Code(s): Z98.890 - Other specified postprocedural states ?Plan: He no ill effects from the procedure, prep or honesty LOVE.? Patient was moving during the procedure.? She will need to return for colorectal screening in 1-2 years.? Will use adult scope. (3) Sessile colonic polyp: ?Code(s): K63.5 - Polyp of colon ?Plan: One sessile serrated polyp found.? Return for colorectal screening in 1-2 years.? Patient is agreeable to this.? I will see her in 1 year, sooner on as needed basis.? Patient is agreeable to this plan and verbalizes understanding of instructions.? She was given the opportunity to ask questions and all questions answered.? TODAY'S VISIT Patient is here today for follow-up and to discuss her going for colonoscopy. Patient continues to have frequent loose stools postprandially. Patient has not changed her diet. Last colonoscopy in May of 2022 and recommendation was made to have colonoscopy in 1-2 years. Patient denies melena, hematochezia, unintentional weight loss or ribbon like stools. Patient denies any dyspepsia, dysphagia or odynophagia. Patient unable to take Citrucel tablet, reports that it was too big for her to swallow. Patient denies any issues with anesthesia in the past. No history sleep apnea. Not on any anticoagulation medications. Patient was moving during colonoscopy. Patient will need to have adult colonoscope this time. Denies any cardiac or respiratory symptoms. [facility] Medical History Allergic rhinitis Anxiety and depression Chronic low back pain Cigarette smoker Diverticulosis Dyslipidemia Environmental allergies Essential hypertension Family history of thyroid disease in mother Former cigarette smoker Immunization declined Knee pain, right Morbid obesity Peripheral neuropathy Smoker unmotivated to quit Varicose veins of leg with swelling Vitamin D deficiency, unspecified Family History Father Substance use disorder Social History Housing: Apartment Patient Tobacco Use Status: Former Tobacco user Tobacco use type: Cigarette e-Cigarette/Vaping Use: Never Used service: No Current occupational status: unemployed Cognitive needs: No Hearing needs: No Vision needs: No Review of Systems Const Denies weight gain and Denies weight loss ENT Reports no additional complaints, Denies dysphagia and Denies odynophagia Card Reports no additional complaints Resp Reports no additional complaints GI Denies abdominal pain, Denies belching, Denies melena, Reports bloating, Denies dysphagia, Denies excessive flatus, Denies dyspepsia, Denies heartburn, Denies diarrhea, Reports loose stools, Denies nausea, Denies odynophagia and Denies vomiting Reports no additional complaints Musc Reports no additional complaints Neuro Reports no additional complaints Psych Reports no additional complaints Endo Reports no additional complaints Physical Exam Vital Signs: Last Vital Signs Pulse 87 05/31/23 13:02 BP 132/64 05/31/23 13:02 BMI result Body Mass Index 43.3 Const General: healthy appearing, no acute distress and well developed Nutritional Appearance: obese Orientation/consciousness: patient oriented x3 HEENT Head: Yes normal to inspection, Yes normocephalic and Yes atraumatic Face and sinus: Yes normal facial exam Mouth: Normal oral and palatal mucosa present Throat: Yes posterior oropharynx normal, Yes tonsils normal and Yes uvula midline Eyes General: appearance normal, both eyes and all related structures Neck Neck: Yes normal visual inspection, Yes full ROM and Yes trachea midline Thyroid: Thyroid normal Resp Effort & Inspection: normal respiratory effort, able to speak in complete sentences, no tracheal deviation and symmetric chest movement Auscultation: clear to auscultation bilaterally Cardio Rate: regular rate Heart sounds: S1 normal heart sound present and S2 normal heart sound present GI Inspection: Yes normal to inspection, No distended and Yes obesity Palpation (GI): Soft to palpation, not firm, nontender and No hepatosplenomegaly present Auscultation: normal bowel sounds General: Yes no CVA tenderness Back/Spine/Pelvis Back: no CVA tenderness Skin General skin exam: elasticity normal, turgor normal and dry skin Neuro General: patient oriented x3 Psych Appearance: grossly normal Mental Status: mental status grossly normal Speech and movement: Normal speech and movement present Assessment & Plan Assessment & Plan (1) Screen for colon cancer: Code(s): Z12.11 - Encounter for screening for malignant neoplasm of colon Plan: With the expect before during and after the procedure discussed with patient. Patient denies any cardiac or respiratory symptoms. Clear liquid diet and good bowel prep day before procedure discussed with patient. (2) IBS (irritable bowel syndrome): Code(s): K58.9 - Irritable bowel syndrome without diarrhea Qualifiers: Irritable bowel syndrome type: with diarrhea Qualified Code(s): K58.0 - Irritable bowel syndrome with diarrhea Plan: Patient can try to take Citrucel powder. However discussed with patient stopping the powder 1 week before the procedure. I will see her after the procedure, sooner on as needed basis. Patient is agreeable to this plan and verbalizes understanding of instructions. She was given the opportunity to ask questions questions answered. Thank you for allowing me to participate in her care Medications: New bisacodyl (Dulcolax (bisacodyl)) take 2 tabs at noon the day before your colonoscopy 10 mg (2 x 5 mg) PO ONCE 2 tabs 0RF 1 day Z12.11 - Encounter for screening for malignant neoplasm of colon polyethylene glycol 3350 (Miralax) As directed by gastroenterology department at [facility] 238 grams PO ONCE 238 grams 0RF Z12.11 - Encounter for screening for malignant neoplasm of colon methylcellulose (laxative) (Citrucel Sugar Free oral powder) 2 grams PO DAILY 479 grams 2RF Discontinued methylcellulose (laxative) take it with full glass of water Discontinued Reason: Doctor's Order 500 mg PO DAILY 30 tabs 2RF K59.00 - Constipation, unspecified Coding Level of Care Code Est Pt Level 3 (43616) Diagnoses Screen for colon cancer Z12.11 IBS (irritable bowel syndrome) K58.0 Irritable bowel syndrome type: with diarrhea Time Spent (min) 30 Comment 20 minutes spent with patient and additional 10 minutes spent reviewing her records
== END 2023-05-31 14:01 | disposition home or self-care (01) ==
PROVIDERS: PCP Internal Medicine; Visit Provider Nurse Practitioner Family
DX: Z12.11 Encounter for screening for malignant neoplasm of colon (principal); K58.0 Irritable bowel syndrome with diarrhea; Z01.818 Encounter for other preprocedural examination
CPT/HCPCS: 99213

== ENCOUNTER → 2023-05-31 12:57 | Outpatient (BNVA) | payer OTHER, SELFPAY | PROVIDERS: PCP Internal Medicine; Visit Provider Nurse Practitioner Family | DX: Z12.11 Encounter for screening for malignant neoplasm of colon (principal); K58.0 Irritable bowel syndrome with diarrhea | CPT/HCPCS: 99212 ==

== ENCOUNTER 2023-08-16 08:10 | Day surgery (SDC) | payer OTHER, SELFPAY ==
[2023-08-14 09:20] VITALS: BMI 43.3
--- NOTE | 2023-08-15 09:07 | HO.ANESPROP2 ---
Documented by User: Ayla Bill NP 08/15/23 09:08 HPI - Anesthesia Eval Consult details Narrative: 58yo F for Colonoscopy s/p colo 05/2022 with [facility] Active Problems Active Problems: All Active Problems (Updated 08/14/23 @ 09:17 by Inessa Schmitz RN) Lymphedema (Acute) Varicose veins of right lower extremity with inflammation (Acute) Knee pain, right (Acute) Allergic rhinitis (Acute) Former cigarette smoker (Acute) Diverticulosis (Acute) Peripheral neuropathy (Acute) Immunization declined (Acute) Varicose veins of leg with swelling (Acute) Environmental allergies (Acute) Anxiety and depression (Acute) Morbid obesity (Acute) Family history of thyroid disease in mother (Acute) Dyslipidemia (Acute) Essential hypertension (Acute) Chronic low back pain (Acute) Past Medical History Medical History (Updated 08/16/23 @ 09:13 by Elina Ratliff MD) Asthma Lymphedema Knee pain, right Allergic rhinitis Diverticulosis Peripheral neuropathy Smoker unmotivated to quit Immunization declined Varicose veins of leg with swelling Vitamin D deficiency, unspecified Environmental allergies Anxiety and depression Morbid obesity Family history of thyroid disease in mother Cigarette smoker Dyslipidemia Essential hypertension Chronic low back pain Family History Family History Father Substance use disorder Family history of problems with anesthesia: No Surgical History Surgical History H/O colonoscopy History of Problems with Anesthesia: No Social History Social History (Updated 08/16/23 @ 09:20 by Elina Ratliff MD) Housing: Apartment Patient Tobacco Use Status: Current everyday Tobacco user Tobacco use type: Cigarette e-Cigarette/Vaping Use: Never Used service: No Current occupational status: unemployed Cognitive needs: No Hearing needs: No Vision needs: No Meds Allergies Allergy/AdvReac Type Severity Reaction Status Date / Time shellfish derived Allergy Severe anaphylaxis Verified 08/14/23 09:09 [SHELLFISH DERIVED] phenazopyridine AdvReac Intermediate VOMITING Verified 08/14/23 09:09 [From PYRIDIUM] pregabalin [From LYRICA] AdvReac Intermediate nausea and Verified 08/14/23 09:09 vomiting Home Medications Medication Instructions Recorded Confirmed Last Taken Type vitamin B complex (B 1 tab PO DAILY 09/23/21 08/14/23 Unknown History Complex-Vitamin B12 tablet) multivitamin 1 tab PO DAILY 11/02/22 08/14/23 Unknown History cholecalciferol (vitamin D3) 125 125 mcg PO Q2D 04/07/23 08/14/23 Unknown History mcg (5,000 unit) capsule Exam Exam Date and Time: August 15, 2023 0907 Height,Weight and Vital Signs: Height 5 ft 4 in Weight 114.305 kg Pertinent Lab Results Pertinent Lab Results: Laboratory Tests 04/04/23 10:44 Sodium 138 Potassium 3.7 Chloride 100 Carbon Dioxide 25 BUN 10 Creatinine 0.68 Assessment and Plan Assessment Anesthesia Assessment: Chart Reviewed Final Anesthetic Review Family History of Problems with Anesthesia: No History of Problems with Anesthesia: No Documented by User: Elina Ratliff MD 08/16/23 09:26 HPI - Anesthesia Eval Consult details Narrative: 58yo F for Colonoscopy s/p colo 05/2022 with [facility]-Per Dr Pierre-Repeat Colonoscopy in 1-2 years due to subtle polyps and patient movement during procedure or earlier if clinically indicated. Next time use adult colonoscope. Patient received versed, lidocaine and 1gm of propofol and was still restless. PMFSH Active Problems Active Problems: All Active Problems (Updated 08/16/23 @ 09:17 by Elina Gaviria MD) Lymphedema (Acute) Varicose veins of right lower extremity with inflammation (Acute) Knee pain, right (Acute) Allergic rhinitis (Acute) Cigarette smoker (Acute) Diverticulosis (Acute) Peripheral neuropathy (Acute) Immunization declined (Acute) Varicose veins of leg with swelling (Acute) Environmental allergies (Acute) Anxiety and depression (Acute) Morbid obesity (Acute). Denies EMILIANO Family history of thyroid disease in mother (Acute) Dyslipidemia (Acute) Essential hypertension (Acute) Chronic low back pain (Acute) Asthma- inhaler prn Increased BMI 43.3 Denies EMILIANO Past Medical History Medical History (Updated 08/16/23 @ 09:13 by Elina Ratliff MD) Asthma Lymphedema Knee pain, right Allergic rhinitis Diverticulosis Peripheral neuropathy Smoker unmotivated to quit Immunization declined Varicose veins of leg with swelling Vitamin D deficiency, unspecified Environmental allergies Anxiety and depression Morbid obesity Family history of thyroid disease in mother Cigarette smoker Dyslipidemia Essential hypertension Chronic low back pain Family History Family History Father Substance use disorder Surgical History Surgical History H/O colonoscopy Social History Social History (Updated 08/16/23 @ 09:20 by Elina Ratliff MD) Housing: Apartment Patient Tobacco Use Status: Current everyday Tobacco user Tobacco use type: Cigarette e-Cigarette/Vaping Use: Never Used service: No Current occupational status: unemployed Cognitive needs: No Hearing needs: No Vision needs: No Meds Allergies Allergy/AdvReac Type Severity Reaction Status Date / Time shellfish derived Allergy Severe anaphylaxis Verified 08/14/23 09:09 [SHELLFISH DERIVED] phenazopyridine AdvReac Intermediate VOMITING Verified 08/14/23 09:09 [From PYRIDIUM] pregabalin [From LYRICA] AdvReac Intermediate nausea and Verified 08/14/23 09:09 vomiting Home Medications Medication Instructions Recorded Confirmed Last Taken Type vitamin B complex (B 1 tab PO DAILY 09/23/21 08/14/23 Unknown History Complex-Vitamin B12 tablet) multivitamin 1 tab PO DAILY 11/02/22 08/14/23 Unknown History cholecalciferol (vitamin D3) 125 125 mcg PO Q2D 04/07/23 08/14/23 Unknown History mcg (5,000 unit) capsule Exam Height,Weight and Vital Signs: Height 5 ft 4 in Weight 114.305 kg Vital Signs Temp Pulse Resp BP Pulse Ox O2 Del Method 08/16/23 08:22 98.2 F 88 20 160/61 H 97 Room Air Airway Mallampati Class: II TM Dist: >3cm Neck ROM: Full Loose/Missing/Broken Teeth: Yes (Missing teeth back-top right, bottom right, bottom left. Denies broken or loose teeth) Heart: RRR Lungs: CTAB Assessment and Plan Assessment Anesthesia Assessment: Anesthesia Plan Discussed Final Anesthetic Review NPO: Yes ASA Class: III Final Preanesthetic Review: No Changes in Pt Med Stat, Meds/Allgs Chart Reviewed, Consent Obtained/Reviewed and Anes Risks/Benef Reviewed Patient Risk: Intermediate Procedure Risk: Low Assessment/Block/Sedation in SS: Assess/Block/Sedation-SS Anesthetic Plan Anesthetic Plan: MAC: Disposition: Standard PACU
[2023-08-16 08:22] VITALS: BP 160/61; PULSE 88; RESP 20; TEMP 36.8; O2SAT 97
[2023-08-16] MEDS: Lactated Ringers 1,000 ML 100 ML IVCONT (08:50)
--- NOTE | 2023-08-16 09:38 | MHC.SHP ---
Pre-Procedural Eval Section A Date of Service: 08/16/23 Section B Chief Complaint: IBS, Chronic idiopathic constipation Relevant Family History (Specify if Yes): No Relevant Social History: None Present Medications: see Short Stay Collaborative assessment Medical History: Significant History (Allergic rhinitis Anxiety and depression Chronic low back pain Cigarette smoker Diverticulosis Dyslipidemia Environmental allergies Essential hypertension Family history of thyroid disease in mother Former cigarette smoker Immunization declined Knee pain, right Morbid obesity Peripheral neuropathy S) History of Previous Operations: Relevant previous surgery/procedure and date(s) (colonoscopy) Allergies: Allergies Allergy/AdvReac Type Severity Reaction Status Date / Time shellfish derived Allergy Severe anaphylaxis Verified 08/14/23 09:09 [SHELLFISH DERIVED] phenazopyridine AdvReac Intermediate VOMITING Verified 08/14/23 09:09 [From PYRIDIUM] pregabalin [From LYRICA] AdvReac Intermediate nausea and Verified 08/14/23 09:09 vomiting Review of Systems Sugical H&P ROS: Negative: Constitution, Cardiovascular, Respiratory, Neurological, Psychiatric, Hem-Onc, Allergic/Immunologic, Gastrointestinal, Genitourinary, Musculoskeletal, Integumentary, Endocrine and Eyes/Ears/Nose/Throat Exam Surgical H&P Exam: Normal: HEENT, Normal: Heart, Normal: Lungs, Normal: Extremities, Normal: Abdomen, Normal: Skin and Normal: Neurological Plan Diagnosis/Plan: Unchanged I have reviewed the history and physical and performed a pertinent physical examination on my patient. No changes have occurred unless specified. Time Spent With Patient Time: Total time managing care of this patient today ____ minutes.
--- NOTE | 2023-08-16 09:49 | W.PM.OPN ---
Operative Note Operative Note Date of Service: 08/16/23 Narrative: Operative Information Procedure Description: Colonoscopy Indication: hx of colon polyps Anesthesia: MAC COLONOSCOPY Instrument: Olympus variable stiffness ADULT scope 190L Colonoscopy Monitoring: Vital signs and clinical assessment, continuous EKG monitoring, Pulse oximetry, Carbon Dioxide monitoring and blood pressure monitoring were done throughout the procedure. Colon withdrawal time was 11 minutes. Procedure: The patient was placed in the left lateral decubitis position and pre-procedure medications were administered. After a digital rectal examination of the ano-rectum, the video colonoscope was inserted into the rectum and advanced through the colon to the cecum/TI. The colonoscope was slowly withdrawn in a retrograde panoramic fashion and the colon mucosa was carefully examined including a retroflexed view of the rectum. Findings and interventions are described below. Procedure Difficulty: moderate Findings: Terminal Ileum-not intubated Cecum:several diverticula seen. Ascending Colon: normal Transverse Colon -normal Descending Colon: normal Sigmoid Colon: moderate diverticulosis Rectum: Retroflexion with small internal hemorrhoids, grade I, x 2 sessile polyps 6-8 mm removed with cold snare Anorectum - normal Colon preparation: [place] Bowel Preparation Scale Right colon; 2 Transverse colon: 2 Left colon; 2 (0 = Unprepared colon segment with mucosa not seen due to solid stool that cannot be cleared. 1 = Portion of mucosa of the colon segment seen, but other areas of the colon segment not well seen due to staining, residual stool and/or opaque liquid. 2 = Minor amount of residual staining, small fragments of stool and/or opaque liquid, but mucosa of colon segment seen well. 3 = Entire mucosa of colon segment seen well with no residual staining, small fragments of stool or opaque liquid) Impression and Post Procedure Diagnosis: polyps internal hemorrhoids diverticular disease Plan: High fiber diet leaflet Avoid straining at stool, epsom salts and sitz bath, anusol supps or cream Repeat Colonoscopy in 5 years due to prior hx of polyps or earlier if clinically indicated Above findings were reviewed with the patient and relevant handouts were provided if indicated.
[2023-08-16 10:30] VITALS: BP 128/71; PULSE 96; RESP 20; TEMP 36.6; O2SAT 97
[2023-08-16 10:45] VITALS: BP 134/72; PULSE 92; RESP 20; O2SAT 97
[2023-08-16 11:00] VITALS: BP 128/75; PULSE 88; RESP 16; TEMP 36.1; O2SAT 98
== END 2023-08-16 11:11 | disposition home or self-care (01) ==
PROVIDERS: PCP Internal Medicine; Visit Provider Internal Medicine Gastroenterology
PROC: 0DJD8ZZ Inspection of Lower Intestinal Tract, Via Natural or Artificial Opening Endoscopic (ICD-10-PCS; CPT 45378; principal; 2023-08-16 09:20)
DX: Z12.11 Encounter for screening for malignant neoplasm of colon (principal); K63.5 Polyp of colon; K57.30 Diverticulosis of large intestine without perforation or abscess without bleeding; K64.0 First degree hemorrhoids; Z86.010 Personal history of colon polyps; K59.04 Chronic idiopathic constipation; K58.1 Irritable bowel syndrome with constipation; I10 Essential (primary) hypertension; E78.5 Hyperlipidemia, unspecified; E66.9 Obesity, unspecified; Z68.41 Body mass index [BMI] 40.0-44.9, adult; F17.200 Nicotine dependence, unspecified, uncomplicated; Z79.899 Other long term (current) drug therapy
CPT/HCPCS: 45385; 88305; J2250

== ENCOUNTER → 2023-08-16 08:10 | Outpatient (BNV) | payer OTHER, SELFPAY | PROVIDERS: PCP Internal Medicine; Visit Provider Internal Medicine Gastroenterology | DX: Z12.11 Encounter for screening for malignant neoplasm of colon (principal); Z86.010 Personal history of colon polyps; K57.30 Diverticulosis of large intestine without perforation or abscess without bleeding; K64.0 First degree hemorrhoids; D12.8 Benign neoplasm of rectum | CPT/HCPCS: 45385 ==

== ENCOUNTER 2023-10-19 13:32 | Outpatient (AMB) | payer OTHER, SELFPAY ==
[2023-10-19 13:43] VITALS: BP 140/66; PULSE 88; O2SAT 98; BMI 43.1
--- NOTE | 2023-10-19 13:43 | A.OFFPC_ITS ---
Vital Signs 10/19/23 13:43 Height 5 ft 4 in Weight 251 lb BMI 43.1 BP 140/66 H Blood Pressure Location Rt brachial Position Sitting Pulse 88 Pulse Source Pulse Oximeter Pulse Oximetry (%) 98 Oxygen Delivery Method Room Air Intake Visit Reasons: Establish Care, HTN Intake Note: Pt is here to Est care Allergies shellfish derived [SHELLFISH DERIVED] Allergy (Severe, Verified 10/19/23 13:59) anaphylaxis phenazopyridine [From PYRIDIUM] Adverse Reaction (Intermediate, Verified 10/19/23 13:59) VOMITING pregabalin [From LYRICA] Adverse Reaction (Intermediate, Verified 10/19/23 13:59) nausea and vomiting Medication List - Last Reconciled 10/19/23 by Brian Mcdaniel, MARIS atorvastatin 20 mg PO DAILY cholecalciferol (vitamin D3) 125 mcg PO Q2D dicyclomine 10 mg PO BID PRN furosemide 20 mg PO DAILY PRN gabapentin 600 mg (2 x 300 mg) PO TID 30 days lorazepam mg PO losartan-hydrochlorothiazide 50-12.5 mg 1 tab PO DAILY multivitamin 1 tab PO DAILY triamcinolone acetonide 2 sprays intranasal DAILY PRN 90 days Ventolin HFA 90 mcg/actuation (albuterol sulfate) 2 puffs inhalation Q6H PRN NS vitamin B complex (B Complex-Vitamin B12 tablet) 1 tab PO DAILY Tobacco use date assessed: 10/19/23 Dental Screening Dental Screen Date: 10/19/23 Did you have a dental visit in the last 12 months?: Yes Did you have a dental problem in the last 6 months where you did not have access to dental care?: No Was dental information given to patient?: Patient has dentist HPI HPI Comments History of Present Illness Details Patient is a 58-year-old female in today to establish care. She has a past medical history significant for anxiety, borderline personality disorder, hyperlipidemia, neuropathy, and hypertension. She has a primary complaint today of anxiety, which has gotten worse over the past few months. Patient states that she recently met with a therapist that placed her on Lexapro, which she had to discontinue due to frequent headaches. Since then the patient states that her therapist has moved and she is currently looking for a new on with the help of community navigation services at [place]. [facility] Medical History (Updated 10/20/23 @ 15:48 by MARIS Salcedo) History of uterine cancer Asthma Lymphedema Knee pain, right Allergic rhinitis Diverticulosis Peripheral neuropathy Smoker unmotivated to quit Immunization declined Varicose veins of leg with swelling Vitamin D deficiency, unspecified Environmental allergies Anxiety and depression Morbid obesity Family history of thyroid disease in mother Cigarette smoker Dyslipidemia Essential hypertension Chronic low back pain Surgical History (Updated 10/19/23 @ 14:12 by MARIS Salcedo) H/O tubal ligation History of appendectomy H/O colonoscopy Family History Father Substance use disorder Social History Housing: Apartment Patient Tobacco Use Status: Current everyday Tobacco user Tobacco use type: Cigarette e-Cigarette/Vaping Use: Never Used service: No Current occupational status: unemployed Cognitive needs: No Hearing needs: No Vision needs: No Questionnaire PHQ-9 Over the last 2 weeks, how often have you been bothered by any of the following problems? 1. Little interest or pleasure in doing things: more than half the days 2. Feeling down, depressed, or hopeless: several days 3. Trouble falling or staying asleep, or sleeping too much: nearly every day 4. Feeling tired or having little energy: nearly every day 5. Poor appetite or overeating: nearly every day 6. Feeling bad about yourself - or that you are a failure or have let yourself or your family down: more than half the days 7. Trouble concentrating on things, such as reading the newspaper or watching television: several days 8. Moving or speaking so slowly that other people could have noticed. Or the opposite - being so fidgety or restless that you have been moving around a lot more than usual: not at all 9. Thoughts that you would be better off or of hurting yourself in some way: not at all Total score: 15 Depression Screening Interpretation: Positive Depression Screening Done: Yes 46282 - PHQ-9 Billing: Yes Source: Developed by Drs. Jimenez Kahn, Harleen Quach, Cedric Mederos and colleagues, with an educational jonathan from [employer]. Thrive Questionnaire Date Thrive assessed: 10/19/23 I am a: Patient What is your living situation today?: I have a steady place to live Within the past 12 months, did the food you bought not last and you didn't have the money to get more?: Never true Within the past 12 months, did you worry whether your food would run out before you got money to buy more?: Never true Do you have trouble paying for medicines?: No Do you have trouble getting transportation to medical appointments?: No Do you have trouble paying your heating and electricity bill?: No Do you have trouble taking care of your child, family member or friend?: No Do you have trouble with day-to-day activities such as bathing, preparing meals, shopping, managing finances, etc.?: Yes Are you currently unemployed and looking for a job?: Yes Are you interested in more education?: No AUDIT C Alcohol Use Questionnaire (AUDIT-C) 1. How often do you have a drink containing alcohol?: 2-4 times a month 2. How many drinks containing alcohol do you have on a typical day when you are drinking?: 1 or 2 3. How often do you have six or more drinks on one occasion?: Never Total Score: 2 PRASHANTH-7 AMB Questionnaire PRASHANTH-7 Date PRASHANTH - 7 assessed: 10/19/23 Feeling nervous, anxious, or on edge: 2 = More than half the days Not being able to stop or control worryin = Several days Worrying too much about different things: 2 = More than half the days Trouble relaxin = Nearly every day Being so restless that it is hard to sit still: 1 = Several days Becoming easily annoyed or irritable: 2 = More than half the days Feeling afraid as if something awful might happen: 1 = Several days Total PRASHANTH-7 score (0-4 normal; 5-9 mild; 10-14 moderate; 15-21 severe): 12 Source: Developed by Drs. Jimenez Kahn, Harleen Quach, Cedric Mederos and colleagues, with an educational jonathan from [employer]. PRASHANTH-7 Assessment Billing PRASHANTH-7 Assessment Tool: PRASHANTH-7 Assessment 26877 Review of Systems Const Details: Constitutional : No Weight loss, No Fever, No Chills, No Fatigue, No Malaise ENT/Mouth : No sore throat, No Rhinorrhea Eyes: No Eye Pain, No Swelling, No Redness Cardiovascular : No Chest Pain, No SOB, No Dyspnea on Exertion, No Orthopnea, No Edema, No Palpitations Respiratory : No Cough, No Sputum, No Wheezing Gastrointestinal : No Nausea, No Vomiting, No Diarrhea, No Constipation, No abdominal Pain, No Hematochezia, No Melena Genitourinary : No Dysuria, No Urinary Frequency, No Hematuria, Musculoskeletal : Admits some lower back pain and sciata. Skin : No Skin Lesions, No rash Neuro : No Weakness, No Numbness, No Dizziness, No Headache Psych : Admits Anxiety/Panic, Admits some Depression Heme/Lymph: No Bruising, No Bleeding,No Lymphadenopathy Endocrine : No Polyuria, No Polydipsia All other systems reviewed and are negative Physical exam (Primary Care) Vital Signs: Last Vital Signs Pulse 88 10/19/23 13:43 BP 140/66 H 10/19/23 13:43 Pulse Ox 98 10/19/23 13:43 Oxygen Delivery Method Room Air 10/19/23 13:43 Care Plan Goal for BP management: Patient states that her blood pressure measurements at home are usually closer to 120/80. She would like to take blood pressure measurements over the next month, and to bring the blood pressure log at next appointment. BMI result Body Mass Index 43.1 Tobacco/Smoking Status: Tobacco use Status Tobacco use date assessed 10/19/23 10/19/23 13:51 Patient Tobacco Use Status Former Tobacco user 10/19/23 13:51 Tobacco use type Cigarette 10/19/23 13:51 e-Cigarette/Vaping Use Never Used 10/19/23 13:51 PHQ-9: PHQ-9 Score PHQ-9: Total score 15 10/19/23 14:22 Depression Screening Interpretation: Positive Thrive Assessment: Date of Thrive Assessment Date Thrive assessed 10/19/23 10/19/23 14:22 Const Other: Appearance: Alert.? Oriented X3.? No acute distress.? Eyes: Pupils equal, round and reactive to light.? Neck: Normal inspection.? Neck supple.? CVS: Normal heart rate and rhythm.? Pulses normal.? Respiratory: No respiratory distress.? Breath sounds normal.? Neuro: Oriented X 3.? No motor deficit.? No sensory deficit. CN 2-12 intact Psych: No SI/HI. Assessment and Plan Assessment & Plan (1) Anxiety and depression: Comment: Patient's PHQ-9, prashanth 7 in addition to physical exam review of systems indicate that she is having increased anxiety. Will start her on sertraline to be taken as directed. She has been educated on the side effects of these medications and how to take them properly. Code(s): F41.9 - Anxiety disorder, unspecified; F32.A - Depression, unspecified Plan: She will follow-up in 6 weeks. Plan Take your medications as prescribed. If you were prescribed antibiotics today, it is important that you take your medication to their entirety, do not skip any doses, do not finish them early. Follow-up with your primary care provider this week. Return to the emergency department with new or worsening symptoms. Such as fevers, chills, chest pain, shortness of breath, nausea, vomiting, dizziness, headache, vision changes, lethargy In case of emergency call 911 Orders: Orders Comprehensive Met. Panel 10/19/23 I10 - Essential (primary) hypertension Complete Blood Count Auto Diff 10/19/23 Z13.0 - Encounter for screening for diseases of the blood and blood-forming organs and certain disorders involving the immune mechanism Medications: New sertraline 50 mg PO DAILY 90 tabs 0RF olopatadine 0.7% (Pataday Once Daily Relief) 1 drp ophthalmic (eye) DAILY PRN 5 mL 0RF itching Refilled losartan-hydrochlorothiazide 50-12.5 mg 1 tab PO DAILY 90 tabs 1RF Coding Level of Care Code Est Pt Level 3 (14422) Diagnoses Anxiety and depression F41.9; F32.A Additional Codes PRASHANTH-7 Assessment Billing - PRASHANTH-7 Assessment Tool: PRASHANTH-7 Assessment 02757 ([id number]) Time Spent (min) 35
== END 2023-10-19 14:35 | disposition home or self-care (01) ==
PROVIDERS: PCP Internal Medicine; Visit Provider Nurse Practitioner Primary Care
DX: F41.9 Anxiety disorder, unspecified (principal); F32.A Depression, unspecified; Z00.01 Encounter for general adult medical examination with abnormal findings
CPT/HCPCS: 96127; 99213; 99396

== ENCOUNTER 2023-10-19 14:33 | Outpatient (REF) | payer OTHER, SELFPAY | END 2023-10-19 14:34 | disposition home or self-care (01) | LOC: HO.HMGCLDS 14:33 | PROVIDERS: PCP Nurse Practitioner Primary Care; Visit Provider Nurse Practitioner Primary Care | DX: I10 Essential (primary) hypertension (principal); Z13.0 Encounter for screening for diseases of the blood and blood-forming organs and certain disorders involving the immune mechanism | CPT/HCPCS: 36415; 80053; 85025 ==

== ENCOUNTER 2023-11-18 16:31 | Emergency (ER) | payer OTHER, SELFPAY ==
[2023-11-18 16:49] VITALS: BP 118/67; BP 140/84; PULSE 103; PULSE 87; RESP 18; TEMP 36.7; O2SAT 97; O2SAT 99; BMI 42.0
--- NOTE | 2023-11-18 17:11 | ED.GENADULT ---
HPI - General Adult General Chief complaint: Psychiatric Symptoms Stated complaint: STARTED NEW ANXIETY MEDS, ABNORMAL SI THOUGHTS Time Seen by Provider: 11/18/23 17:11 Source: patient and EMS Mode of arrival: EMS Limitations: no limitations History of Present Illness HPI narrative: Patient is a 58 year old assigned female at with a history of asthma, anxiety, and depression presenting to the emergency department today with suicidal ideation. Patient states that she was started on Zoloft for anxiety and it has made her suicidal including planning to use a knife to kill herself. Patient denies any dizziness, lightheadedness, abdominal pain, nausea, vomiting, fever, chills, blurry vision, double vision, loss of vision, chest pain, difficulty breathing, shortness of breath, back pain, night sweats, pain with urination, increased urinary frequency, increased urinary urgency, blood in her urine or stool, syncope or a near syncopal episode, recent trauma or falls, bowel incontinence, bladder incontinence, bowel retention, bladder retention, or any other complaints at this time. Relieving factors: none Exacerbating factors: none Associated symptoms: denies other symptoms Treatments prior to arrival: none Related Data Home Medications Medication Instructions Recorded Confirmed vitamin B complex (B 1 tab PO DAILY 09/23/21 10/19/23 Complex-Vitamin B12 tablet) multivitamin 1 tab PO DAILY 11/02/22 10/19/23 cholecalciferol (vitamin D3) 125 125 mcg PO Q2D 04/07/23 10/19/23 mcg (5,000 unit) capsule lorazepam 0.5 mg tablet mg PO 10/19/23 10/19/23 Previous Rx's Medication Instructions Recorded dicyclomine 10 mg capsule 10 mg PO BID PRN abdominal 05/19/23 discomfort #30 caps atorvastatin 20 mg tablet 20 mg PO DAILY #90 tabs 08/04/23 Ventolin HFA 90 mcg/actuation 2 puff inhalation Q6H PRN 08/08/23 aerosol inhaler (albuterol sulfate) shortness of breath or wheezing #18 grams furosemide 20 mg tablet 20 mg PO DAILY PRN edema #20 tabs 10/01/23 gabapentin 300 mg capsule 600 mg (2 x 300 mg) PO TID 30 days 10/01/23 #180 caps olopatadine 0.7 % eye drops 1 drp ophthalmic (eye) DAILY PRN 10/19/23 (Pataday Once Daily Relief) itching #5 mL sertraline 50 mg tablet 50 mg PO DAILY #90 tabs 10/19/23 losartan 50 mg-hydrochlorothiazide 1 tab PO DAILY #90 tabs 10/20/23 12.5 mg tablet triamcinolone acetonide 55 mcg 2 spray intranasal DAILY PRN 11/08/23 nasal spray aerosol rhinitis 90 days #3 multiple units Allergies Allergy/AdvReac Type Severity Reaction Status Date / Time shellfish derived Allergy Severe anaphylaxis Verified 10/19/23 13:59 [SHELLFISH DERIVED] phenazopyridine AdvReac Intermediate VOMITING Verified 10/19/23 13:59 [From PYRIDIUM] pregabalin [From LYRICA] AdvReac Intermediate nausea and Verified 10/19/23 13:59 vomiting Review of Systems Constitutional: Constitutional: Reports no additional constitutional complaints, Denies chills, Denies fever(s) and Denies night sweats Eyes: Eyes: Reports no additional eye complaints, Denies blurry vision, Denies change in vision, Denies diplopia, Denies eye discharge, Denies loss of vision and Denies eye pain ENT: Denies dizziness Cardiovascular: Cardiovascular: Reports no additional cardiovascular complaints, Denies chest pain, Denies lightheadedness, Denies Loss of Consciousness and Denies dyspnea Respiratory: Respiratory: Reports no additional respiratory complaints and Denies dyspnea Gastrointestinal: Gastrointestinal: Reports no additional gastrointestinal complaints, Denies abdominal pain, Denies melena, Denies hematochezia, Denies change in bowel habits and Denies change in stool character Genitourinary: Genitourinary: Denies hematuria, Denies urinary frequency, Denies dysuria, Denies urinary incontinence, Denies urinary hesitancy and Denies urinary urgency Musculoskeletal: Musculoskeletal: Reports no additional musculoskeletal complaints, Denies numbness and Denies tingling Neurologic: Denies dizziness, Denies loss of vision, Denies numbness and Denies tingling Psychiatric: Psychiatric: Denies homicidal ideation and Reports suicidal ideation Endocrine: Endocrine: Reports no additional endocrine complaints Hematologic/Lymphatic: Hematologic/Lymphatic: Reports no additional hematologic/lymphatic complaints Allergic/Immunologic: Allergic/Immunologic: Reports no additional allergic/immunologic complaints PMFSH Past Medical History Attestation statement: The following information was validated with the patient. Source: old records reviewed and nursing notes reviewed Medical History (Updated 11/19/23 @ 00:49 by Yvette Louis MD) Smoker Knee pain, right Former cigarette smoker Varicose veins of right lower extremity with inflammation Immunization declined Morbid obesity Family history of thyroid disease in mother Chronic low back pain History of uterine cancer Asthma Lymphedema Allergic rhinitis Diverticulosis Peripheral neuropathy Smoker unmotivated to quit Varicose veins of leg with swelling Vitamin D deficiency, unspecified Environmental allergies Anxiety and depression Cigarette smoker Dyslipidemia Essential hypertension Surgical History H/O tubal ligation History of appendectomy H/O colonoscopy Family History Family History Father Substance use disorder Social History Social History Housing: Apartment Patient Tobacco Use Status: Former Tobacco user Tobacco use type: Cigarette Smoked in Last 30 Days: No e-Cigarette/Vaping Use: Never Used Advance Directives: No Advance Directives Information Provided: No Healthcare Proxy: No Guardian: No Patient : No service: No Current occupational status: unemployed Cognitive needs: No Hearing needs: No Vision needs: No Physical Exam ED Vital Signs: Vital Signs - 24 hr 11/18/23 16:49 11/18/23 21:53 Temperature 98.1 F 98.5 F Pulse Rate 87 89 Respiratory Rate 18 20 Blood Pressure 118/67 113/69 Pulse Oximetry 97 97 Oxygen Delivery Method Room Air Room Air BMI result Body Mass Index 42.0 Const General: cooperative, no acute distress, alert and awake Nutritional Appearance: well nourished Orientation/consciousness: patient oriented x3 Limitations: no limitations HENMT Head: Yes normal to inspection and Yes atraumatic Ears: hearing grossly normal bilaterally and external ears normal General nose exam: Normal external nose present, no nasal discharge noted and no epistaxis Face and sinus: Yes normal facial exam, No abrasion and No laceration Mouth: Normal oral and palatal mucosa present, no drooling and no muffled voice Eyes General: appearance normal, both eyes and all related structures Periorbital: periorbital findings normal Eyelids: Yes eyelids normal Conjunctivae: conjunctivae normal Pupils: Equal, round and reactive pupils present EOM: EOMs intact bilaterally Neck Neck: Yes normal visual inspection, Yes full ROM and Yes no lymphadenopathy Chest Chest palpation & inspection: normal inspection of the chest Resp Effort & Inspection: normal respiratory effort and able to speak in complete sentences GI Inspection: Yes normal to inspection Neuro General: patient oriented x3 and moves all extremities Cranial nerves: Yes Equal, round and reactive pupils present Cognition (Neuro): normal cognition Motor exam (neuro): 5/5 motor strength present throughout Sensory Exam: Normal double simultaneous stimulation for sensation Coordination: [id number] test normal Extrem General: Yes normal to inspection, Yes full ROM and Yes capillary refill normal Psych Mental Status: mental status grossly normal Affect: Sad affect present Thought content: Suicidality present Insight: Good insight present (Psych) Medical Decision Making Medical Decision Making MDM Narrative: Patient is a 58 year old assigned female at with a history of anxiety and depression presenting to the emergency department today with suicidal ideation after taking Zoloft. Patient's physical exam was unremarkable. Patient's blood work was unremarkable. Patient's urine showed no acute process. I explained my physical exam findings as well as all test results to the patient. I answered all questions asked by the patient. Patient was evaluated by CARE team who recommended discharge. Patient confirmed a safety plan and has resources in the public. I stressed the importance of the patient stopping her Zoloft and taking the rest of her medication as prescribed. I stressed the importance of the patient following up with her primary care provider and her psychiatrist. I stressed the importance of the patient returning to the emergency department immediately if her symptoms were to worsen or if she were to develop any dizziness, shortness of breath, difficulty breathing, chest pain, blurry vision, loss of vision, nausea, vomiting, abdominal pain, fever, chills, back pain, or any other complaints. Patient verbalized agreement and understanding with this treatment plan and discharge. Differential Diagnosis Differential Diagnoses: The differential diagnosis associated with the presentation includes Suicidal Depression Anxiety Medication reaction / side effect Admission/Observation Consideration of admission/observation: Escalation of care including admission/observation considered Patient would have been admitted to the hospital had her work up had any findings where hospital admission was appropriate and her clinical presentation warranted hospital admission. Consult Healthcare Provider Management of the patient was discussed with: Behavioral Health Provider (spoke to CARE team as noted in the MDM Rationale portion of this note.) Lab Data [facility] Lab Attestation statement: I reviewed the patient's lab results. My interpretation of these results are in the MDM Rationale portion of this note. 11/18/23 17:25 11/18/23 17:25 Labs: Lab Results 11/18/23 Range/Units 17:25 WBC 10.4 (4.8-10.8) X10*3/uL RBC 4.62 (4.20-5.50) X10*6/uL Hgb 15.0 (12.0-16.0) g/dl Hct 43.6 (37.0-47.0) % MCV 94.4 (80.0-98.0) fL MCH 32.5 (27.0-33.0) pg MCHC 34.4 (31.0-35.0) g/dl RDW 13.2 (11.0-16.0) % Plt Count 306 (160-400) X10*3/uL MPV 9.9 (9.4-12.3) fL Immature Gran % (Auto) 0.8 H (0.0-0.4) % Neut % (Auto) 60.0 (45-73) % Lymph % (Auto) 29.4 (20-40) % [place] % (Auto) 8.5 (2-11) % Eos % (Auto) 0.9 (0-4) % Baso % (Auto) 0.4 (0-2) % Lymph # (Auto) 3.1 (1.2-4.9) X10*3/uL [place] # (Auto) 0.9 (0.1-1.2) X10*3/uL Eos # (Auto) 0.1 (0.0-0.4) X10*3/uL Baso # (Auto) 0.0 (0.0-0.2) X10*3/uL Abs Immat Gran (auto) 0.08 H (0.00-0.03) X10*3/uL Absolute Neuts (auto) 6.2 (2.0-8.3) x10*3/uL Absolute Nucleated RBC 0.000 (0.0-0.012) X10*3/uL Nucleated RBC % (auto) 0.0 (0.0-0.2) /100WBC Sodium 142 (135-145) mmol/L Potassium 3.2 L (3.3-5.1) mmol/L Chloride 100 (96-108) mmol/L Carbon Dioxide 25 (22-29) mmol/L Anion Gap 20 (12-20) BUN 9 (9-16) mg/dL Creatinine 0.75 (0.5-1.4) mg/dL Estim Creat Clear Calc 105.7 Estimated GFR > 60 Random Glucose 95 (60-115) mg/dL Calcium 10.0 (8.4-10.2) mg/dL Total Bilirubin 0.4 (0.0-1.0) mg/dL AST 19 (5-31) U/L ALT 22 (0-31) U/L Alkaline Phosphatase 111 (39-117) U/L Total Protein 8.0 (6.5-8.0) g/dL Albumin 4.4 (3.5-5.0) g/dL Urine Color Yellow Urine Appearance Clear Urine pH 7.0 (5.0-9.0) Ur Specific [place] <= 1.005 (1.005-1.025) Urine Protein Negative (Neg-Trace) mg/dL Urine Glucose (UA) Negative (Negative) mg/dL Urine Ketones Negative (Negative) mg/dL Urine Blood Negative (Negative) Urine Nitrite Negative (Negative) Ur Leukocyte Esterase Negative (Negative) Urine Opiates Screen Not Detected (Not Detect) Urine Fentanyl Screen Not Detected (Not Detect) Ur Barbiturates Screen Not Detected (Not Detect) Ur Phencyclidine Scrn Not Detected (Not Detect) Ur Amphetamines Screen Not Detected (Not Detect) U Benzodiazepines Scrn Not Detected (Not Detect) Urine Cocaine Screen Not Detected (Not Detect) U Marijuana (THC) Screen Not Detected (Not Detect) Ethyl Alcohol 154 mg/dL Independent Historian Clinical information obtained from an independent historian. History obtained from or confirmed by: EMS (EMS provided additional history and confirmed the history provided by the patient.) Critical Care Time Critical Care Time Critical Care Time: Yes Total Critical Care Time: 45 Attestation: I spent 45 minutes of Critical Care Time with this patient. This does not include time spent on separately reported billable procedures. Discharge Plan Discharge Clinical Impression: Medication adverse effect Patient Disposition: Home, Self-Care Additional Instructions: Follow up with your primary care provider. Return to the emergency department immediately if your symptoms worsen or if you develop any dizziness, shortness of breath, difficulty breathing, chest pain, blurry vision, loss of vision, nausea, vomiting, abdominal pain, fever, chills, back pain, or any other complaints. [facility]: [address], [place] [id number] Walk in hours from 10am - 12pm Open from 10am - 12pm [facility] Crisis Services: [address] [place] [address] Walk in hours from 10am - 12pm Open 08/05 [facility]: [address] [place] [id number] [address] [place] [id number] Hours: M-F 8am to 8pm Monday and Monday 9am to 5pm Prescriptions: No Action dicyclomine 10 mg capsule 10 mg PO BID PRN (Reason: abdominal discomfort) Qty: 30 2RF atorvastatin 20 mg tablet 20 mg PO DAILY Qty: 90 1RF albuterol sulfate [Ventolin HFA] 90 mcg/actuation HFA aerosol inhaler 2 puff inhalation Q6H PRN (Reason: shortness of breath or wheezing) Qty: 18 2RF furosemide 20 mg tablet 20 mg PO DAILY PRN (Reason: edema) Qty: 20 0RF gabapentin 300 mg capsule 600 mg PO TID 30 Days Qty: 180 0RF triamcinolone acetonide 55 mcg aerosol,spray 2 spray intranasal DAILY PRN (Reason: rhinitis) 90 Days Qty: 3 0RF multivitamin Tablet 1 tab PO DAILY cholecalciferol (vitamin D3) 125 mcg (5,000 unit) capsule 125 mcg PO Q2D vitamin B complex [B Complex-Vitamin B12] Tablet 1 tab PO DAILY lorazepam 0.5 mg tablet PO Pataday Once Daily Relief 0.7 % drops 1 drp ophthalmic (eye) DAILY PRN (Reason: itching) Qty: 5 0RF sertraline 50 mg tablet 50 mg PO DAILY Qty: 90 0RF losartan-hydrochlorothiazide 50-12.5 mg tablet 1 tab PO DAILY Qty: 90 1RF Interventions: [place]-Suicide Risk Severity Scale Last Done: 11/18/23 20:31 ED Discharge Assessment Last Done: 11/18/23 22:57 Discharge Date/Time: 11/18/23 22:58 Print Language: Yoruba
[2023-11-18 17:35] LABS: MANUAL DIFF FLAG NO
[2023-11-18 17:36] LABS: Basophils Percent Auto 0.4 % (0-2); Eosinophils Absolute Auto 0.1 X10*3/uL (0.0-0.4); Eosinophils Percent Auto 0.9 % (0-4); Hematocrit 43.6 % (37.0-47.0); Imm Gran Abs Auto 0.08 X10*3/uL (0.00-0.03); Imm Gran Pct Auto 0.8 % (0.0-0.4); Lymphocytes Absolute Auto 3.1 X10*3/uL (1.2-4.9); Lymphocytes Percent Auto 29.4 % (20-40); Mean Corpuscular HGB Conc 34.4 g/dl (31.0-35.0); Mean Corpuscular Hemoglobin 32.5 pg (27.0-33.0); Mean Corpuscular Volume 94.4 fL (80.0-98.0); Mean Platelet Volume 9.9 fL (9.4-12.3); Monocytes Absolute Auto 0.9 X10*3/uL (0.1-1.2); Monocytes Percent Auto 8.5 % (2-11); Neutrophils Absolute Auto 6.2 x10*3/uL (2.0-8.3); Platelet Count 306 X10*3/uL (160-400); Red Blood Count 4.62 X10*6/uL (4.20-5.50); Red Cell Distribution Width 13.2 % (11.0-16.0); White Blood Count 10.4 X10*3/uL (4.8-10.8)
[2023-11-18 17:38] LABS: Appearance Urine Clear; Color Urine Yellow; Glucose Urine UA Negative (Negative); Leukocyte Esterase Urine Negative (Negative); Nitrite Urine Negative (Negative); Specific Gravity - Urine <= 1.005 (1.005-1.025); Urine Blood Negative (Negative); Urine Ketones Negative (Negative); Urine Protein Negative (Neg-Trace)
[2023-11-18 17:45] LABS: Amphetamine Screen Urine Not Detected (Not Detect); Barbiturates, Urine Not Detected (Not Detect); Benzodiazepines Screen Urine Not Detected (Not Detect); Cannabinoid Screen Urine Not Detected (Not Detect); Cocaine Screen Urine Not Detected (Not Detect); Fentanyl, urine Not Detected (Not Detect); Opiate Screen Urine Not Detected (Not Detect); Phencyclidine Screen Urine Not Detected (Not Detect)
[2023-11-18 17:46] LABS: Ethanol 154 mg/dL
[2023-11-18 17:49] LABS: Alanine Aminotransferase 22 U/L (0-31); Albumin Level 4.4 g/dL (3.5-5.0); Alkaline Phosphatase 111 U/L (39-117); Anion Gap 20 (12-20); Aspartate Amino Transferase 19 U/L (5-31); Bilirubin Total 0.4 mg/dL (0.0-1.0); Blood Urea Nitrogen 9 mg/dL (9-16); Carbon Dioxide 25 mmol/L (22-29); Chloride 100 mmol/L (96-108); Creatinine Clr Calc Pharmacy 105.7; Estimated Glomerular Filt Rate > 60; Glucose Random 95 mg/dL (60-115); Potassium 3.2 mmol/L (3.3-5.1); Sodium 142 mmol/L (135-145)
--- NOTE | 2023-11-18 18:42 | PC.NURSE ---
patient has been calm and cooperative during ED, changed into hospital attire. patient has sitetr 1:1. sitting up eating dinner. respirations equal and unlabored. patient skin PWD
--- NOTE | 2023-11-18 20:32 | PC.NURSE ---
Pt is requesting to go home, stated she knows herself and she knows her body. She feels okay and wants to leave. People around her are making her anxious. LUIZ Renner aware, pt still has to be seen by CARE.
[2023-11-18 21:53] VITALS: BP 113/69; PULSE 89; RESP 20; TEMP 36.9; O2SAT 97
== END 2023-11-18 22:58 | disposition home or self-care (01) ==
PROVIDERS: Emergency Provider Emergency Medicine Emergency Medical Services
DX: R45.851 Suicidal ideations (principal); T43.225A Adverse effect of selective serotonin reuptake inhibitors, initial encounter; Y92.009 Unspecified place in unspecified non-institutional (private) residence as the place of occurrence of the external cause; F32.A Depression, unspecified; F41.9 Anxiety disorder, unspecified; I10 Essential (primary) hypertension; E78.5 Hyperlipidemia, unspecified; Z85.42 Personal history of malignant neoplasm of other parts of uterus; Z79.899 Other long term (current) drug therapy; Z79.02 Long term (current) use of antithrombotics/antiplatelets
CPT/HCPCS: 36415; 80053; 80307; 81003; 85025; 99285; S9485

== ENCOUNTER 2023-11-22 09:00 | Outpatient (AMB) | payer OTHER, SELFPAY ==
--- NOTE | 2023-11-22 09:05 | MHC.PC.OV ---
Vital Signs 11/22/23 09:06 Height 5 ft 5 in Weight 250 lb BMI 41.6 BP 144/76 H Blood Pressure Location Lt brachial Position Sitting Pulse 93 Pulse Source Pulse Oximeter Pulse Oximetry (%) 97 Oxygen Delivery Method Room Air Intake Visit Reasons: HDF Intake Note: Pt is here today for a Hospital follow up visit. Allergies shellfish derived [SHELLFISH DERIVED] Allergy (Severe, Verified 11/22/23 10:01) anaphylaxis phenazopyridine [From PYRIDIUM] Adverse Reaction (Intermediate, Verified 11/22/23 10:01) VOMITING pregabalin [From LYRICA] Adverse Reaction (Intermediate, Verified 11/22/23 10:01) nausea and vomiting sertraline [From Zoloft] Adverse Reaction (Verified 11/22/23 10:01) suicidal ideation Medication List - Last Reconciled 11/22/23 by MARIS Salcedo atorvastatin 20 mg PO DAILY cholecalciferol (vitamin D3) 125 mcg PO Q2D dicyclomine 10 mg PO BID PRN furosemide 20 mg PO DAILY PRN gabapentin 600 mg (2 x 300 mg) PO TID 30 days lorazepam mg PO losartan-hydrochlorothiazide 50-12.5 mg 1 tab PO DAILY multivitamin 1 tab PO DAILY olopatadine 0.7% (Pataday Once Daily Relief) 1 drp ophthalmic (eye) DAILY PRN triamcinolone acetonide 2 sprays intranasal DAILY PRN 90 days Ventolin HFA 90 mcg/actuation (albuterol sulfate) 2 puffs inhalation Q6H PRN NS vitamin B complex (B Complex-Vitamin B12 tablet) 1 tab PO DAILY PRN Tobacco use date assessed: 11/22/23 HPI HPI Comments History of Present Illness Details Patient is a 58-year-old female in today following an emergency room visit. She has a past medical history significant for borderline personality disorder and PTSD. Patient was started on sertraline 4 weeks ago for increasing anxiety and depression. She states that 5 days ago she started to develop intrusive thoughts and suicidal ideation. She was able to call the on-call service, and the provider was able to contact emergency services and the patient was brought in via ambulance to the [facility] emergency room for evaluation. The patient was evaluated by crisis and cleared by her emergency team to discharged home, she was instructed to not take sertraline. The patient states that today she does not have any suicidal ideation or intrusive thoughts. She has an upcoming appointment in 1 day with her therapist, and appointment with her psychiatric provider next week. The patient met with our in office community mental health worker for mental health services today. The patient states that she feels comfortable with the plan that was developed. The patient has been educated on services that she can call and actions to be taken if suicidal ideation ever returns. [facility] Medical History Smoker Knee pain, right Former cigarette smoker Varicose veins of right lower extremity with inflammation Immunization declined Morbid obesity Family history of thyroid disease in mother Chronic low back pain History of uterine cancer Asthma Lymphedema Allergic rhinitis Diverticulosis Peripheral neuropathy Smoker unmotivated to quit Varicose veins of leg with swelling Vitamin D deficiency, unspecified Environmental allergies Anxiety and depression Cigarette smoker Dyslipidemia Essential hypertension Surgical History H/O tubal ligation History of appendectomy H/O colonoscopy Family History Father Substance use disorder Social History Housing: Apartment Patient Tobacco Use Status: Former Tobacco user Quit Date: 8 months ago Tobacco use type: Cigarette e-Cigarette/Vaping Use: Never Used service: No Current occupational status: unemployed Cognitive needs: No Hearing needs: No Vision needs: No Questionnaire Thrive Questionnaire Date Thrive assessed: 10/19/23 PRASHANTH-7 AMB Questionnaire PRASHANTH-7 Date PRASHANTH - 7 assessed: 10/19/23 Source: Developed by Drs. Jimenez Kahn, Harleen Quach, Cedric Mederos and colleagues, with an educational jonathan from [employer]. Review of Systems Const Details: Constitutional : No Weight loss, No Fever, No Chills, No Fatigue, No Malaise Respiratory : No Cough, No Sputum, No Wheezing Gastrointestinal : No Nausea, No Vomiting, No Diarrhea, No Constipation, No abdominal Pain, No Hematochezia, No Melena Neuro : No Weakness, No Numbness, No Dizziness, No Headache Psych : Admits some Anxiety/Panic, No Depression. Denies SI/HI. Endocrine : No Polyuria, No Polydipsia All other systems reviewed and are negative Physical exam (Primary Care) Vital Signs: Last Vital Signs Pulse 93 11/22/23 09:06 BP 144/76 H 11/22/23 09:06 Pulse Ox 97 11/22/23 09:06 Oxygen Delivery Method Room Air 11/22/23 09:06 BMI result Body Mass Index 41.6 Tobacco/Smoking Status: Tobacco use Status Tobacco use date assessed 11/22/23 11/22/23 09:14 Patient Tobacco Use Status Former Tobacco user 11/22/23 09:14 Tobacco use type Cigarette 11/22/23 09:14 e-Cigarette/Vaping Use Never Used 11/22/23 09:14 Thrive Assessment: Date of Thrive Assessment Date Thrive assessed 10/19/23 11/22/23 09:14 Const Other: Appearance: Alert.? Oriented X3.? No acute distress.? CVS: Normal heart rate and rhythm.? Pulses normal.? Respiratory: No respiratory distress.? Breath sounds normal.? Abdomen: Soft and nontender.? Neuro: Oriented X 3.? No motor deficit.? No sensory deficit. Psych Appearance: grossly normal Speech and movement: Normal speech and movement present Affect: normal affect Attitude: cooperative Assessment and Plan Assessment & Plan (1) Anxiety and depression: Comment: The patient has appointment with therapist tomorrow and appointment with psychiatric provider next week. Patient has been educated on signs of worsening symptoms and when to report back to the office or when to present to the emergency room. Patient states that she agrees with the plan. She is meeting with in office community mental health liaison today as well. Code(s): F41.9 - Anxiety disorder, unspecified; F32.A - Depression, unspecified Plan: Take your medications as prescribed. If you were prescribed antibiotics today, it is important that you take your medication to their entirety, do not skip any doses, do not finish them early. Follow-up with your primary care provider this week. Return to the emergency department with new or worsening symptoms. Such as fevers, chills, chest pain, shortness of breath, nausea, vomiting, dizziness, headache, vision changes, lethargy In case of emergency call 911 Coding Level of Care Code Est Pt Level 3 (01387) Diagnoses Anxiety and depression F41.9; F32.A
[2023-11-22 09:06] VITALS: BP 144/76; PULSE 93; O2SAT 97; BMI 41.6
== END 2023-11-22 10:35 | disposition home or self-care (01) ==
PROVIDERS: Visit Provider Nurse Practitioner Primary Care
DX: F41.9 Anxiety disorder, unspecified (principal); F32.A Depression, unspecified
CPT/HCPCS: 99213

== ENCOUNTER 2024-01-25 08:32 | Outpatient (AMB) | payer OTHER, SELFPAY ==
[2024-01-25 08:38] VITALS: BP 140/78; PULSE 93; TEMP 36.9; O2SAT 99; BMI 42.0
--- NOTE | 2024-01-25 08:38 | MHC.PC.OV ---
Vital Signs 01/25/24 08:38 Height 5 ft 5 in Weight 252 lb 4 oz BMI 42.0 BP 140/78 H Blood Pressure Location Rt brachial Position Sitting Pulse 93 Pulse Source Pulse Oximeter Temp 98.5 F Temp Source Oral Pulse Oximetry (%) 99 Oxygen Delivery Method Room Air Intake Visit Reasons: Upper respiratory infection pt refused walk-in Intake Note: pt is here for a cough and phlegm for about a week and her eye are red and swollen Allergies shellfish derived [SHELLFISH DERIVED] Allergy (Severe, Verified 01/25/24 08:56) anaphylaxis phenazopyridine [From PYRIDIUM] Adverse Reaction (Intermediate, Verified 01/25/24 08:56) VOMITING pregabalin [From LYRICA] Adverse Reaction (Intermediate, Verified 01/25/24 08:56) nausea and vomiting sertraline [From Zoloft] Adverse Reaction (Verified 01/25/24 08:56) suicidal ideation Medication List - Last Reconciled 01/25/24 by MARIS Salcedo atorvastatin 20 mg PO DAILY cholecalciferol (vitamin D3) 125 mcg PO Q2D dicyclomine 10 mg PO BID PRN furosemide 20 mg PO DAILY PRN gabapentin 600 mg (2 x 300 mg) PO TID lorazepam mg PO PRN losartan-hydrochlorothiazide 50-12.5 mg 1 tab PO DAILY multivitamin 1 tab PO DAILY olopatadine 0.7% (Pataday Once Daily Relief) 1 drp ophthalmic (eye) DAILY PRN trazodone 50 mg PO BEDTIME PRN triamcinolone acetonide 2 sprays intranasal DAILY PRN 90 days Ventolin HFA 90 mcg/actuation (albuterol sulfate) 2 puffs inhalation Q6H PRN NS vitamin B complex (B Complex-Vitamin B12 tablet) 1 tab PO DAILY PRN Tobacco use date assessed: 11/22/23 HPI HPI Comments History of Present Illness Details Patient is a 58-year-old female in today for sick visit. Patient states she has developed symptoms of cough, sore throat, sinus pressure, chest congestion, for the past week. Patient has utilize [id number] medicine, saline rinse, with little relief. Denies fever, nausea, chest pain, numbness, vomiting, diarrhea. [facility] Medical History Smoker Knee pain, right Former cigarette smoker Varicose veins of right lower extremity with inflammation Immunization declined Morbid obesity Family history of thyroid disease in mother Chronic low back pain History of uterine cancer Asthma Lymphedema Allergic rhinitis Diverticulosis Peripheral neuropathy Smoker unmotivated to quit Varicose veins of leg with swelling Vitamin D deficiency, unspecified Environmental allergies Anxiety and depression Cigarette smoker Dyslipidemia Essential hypertension Surgical History H/O tubal ligation History of appendectomy H/O colonoscopy Family History Father Substance use disorder Social History Housing: Apartment Patient Tobacco Use Status: Former Tobacco user Quit Date: 8 months ago Tobacco use type: Cigarette e-Cigarette/Vaping Use: Never Used service: No Current occupational status: unemployed Cognitive needs: No Hearing needs: No Vision needs: No Questionnaire PHQ-9 Over the last 2 weeks, how often have you been bothered by any of the following problems? 70629 - PHQ-9 Billing: Patient declined-do not bill Source: Developed by Drs. Jimenez Kahn, Cedric Goyal and colleagues, with an educational jonathan from [employer]. Thrive Questionnaire Date Thrive assessed: 10/19/23 PRASHANTH-7 AMB Questionnaire PRASHANTH-7 Date PRASHANTH - 7 assessed: 10/19/23 Source: Developed by Harleen Beverly Kurt Kroenke and colleagues, with an educational jonathan from [employer]. PRASHANTH-7 Assessment Billing PRASHANTH-7 Assessment Tool: pt declined-do not bill Review of Systems Const Details: Constitutional : No Weight loss, No Fever, No Chills, No Fatigue, No Malaise ENT/Mouth : Admits sore throat, No Rhinorrhea Eyes: No Eye Pain, No Swelling, Admits left eye Redness and discharge. Cardiovascular : No Chest Pain, No SOB, No Dyspnea on Exertion, No Orthopnea, No Edema, No Palpitations Respiratory : Admits Cough, Admits Sputum, Admits Wheezing Gastrointestinal : No Nausea, No Vomiting, No Diarrhea, No Constipation, No abdominal Pain, No Hematochezia, No Melena Endocrine : No Polyuria, No Polydipsia All other systems reviewed and are negative Physical exam (Primary Care) Vital Signs: Last Vital Signs Temp 98.5 F 01/25/24 08:38 Pulse 93 01/25/24 08:38 BP 140/78 H 01/25/24 08:38 Pulse Ox 99 01/25/24 08:38 Oxygen Delivery Method Room Air 01/25/24 08:38 BMI result Body Mass Index 42.0 Tobacco/Smoking Status: Tobacco use Status Tobacco use date assessed 11/22/23 01/25/24 08:46 Patient Tobacco Use Status Former Tobacco user 01/25/24 08:46 Tobacco use type Cigarette 01/25/24 08:46 e-Cigarette/Vaping Use Never Used 01/25/24 08:46 Thrive Assessment: Date of Thrive Assessment Date Thrive assessed 10/19/23 01/25/24 08:46 Const Other: Appearance: Alert.? Oriented X3.? No acute distress.? Head: Normocephalic. Eyes: Pupils equal, round and reactive to light.?Bilateral eye redness with purulent discharge ENT: Pharynx erythema. +sinus tenderness. TM intact and pearly tai. ? Neck: Normal inspection.? Neck supple.?Full ROM CVS: Normal heart rate and rhythm.? Pulses normal.? Respiratory: No respiratory distress.? Bilateral wheeze of upper lobes. ? Neuro: Oriented X 3.? No motor deficit.? No sensory deficit. CN 2-12 intact Assessment and Plan Assessment & Plan (1) Conjunctivitis: Comment: Will order ofloxacin. Code(s): H10.9 - Unspecified conjunctivitis Qualifiers: Acute conjunctivitis type: bacterial Conjunctivitis type: acute Laterality: bilateral Qualified Code(s): H10.33 - Unspecified acute conjunctivitis, bilateral (2) Sinusitis: Comment: Will order azithromycin, benzonatate. Code(s): J32.9 - Chronic sinusitis, unspecified Qualifiers: Chronicity: acute Recurrence: non-recurrent Sinusitis location: unspecified location Qualified Code(s): J01.90 - Acute sinusitis, unspecified (3) Asthma: Comment: Will order Symbicort inhaler. Patient already has albuterol inhaler. Code(s): J45.909 - Unspecified asthma, uncomplicated Qualifiers: Asthma complication type: unspecified Asthma persistence: unspecified Asthma severity: mild Qualified Code(s): J45.909 - Unspecified asthma, uncomplicated Plan: Take your medications as prescribed. If you were prescribed antibiotics today, it is important that you take your medication to their entirety, do not skip any doses, do not finish them early. Follow-up with your primary care provider this week. Return to the emergency department with new or worsening symptoms. Such as fevers, chills, chest pain, shortness of breath, nausea, vomiting, dizziness, headache, vision changes, lethargy In case of emergency call 911 Plan Patient has follow-up physical in 2 months. Coding Level of Care Code Est Pt Level 3 (00474) Diagnoses Acute bacterial conjunctivitis of both eyes H10.33 Acute conjunctivitis type: bacterial Conjunctivitis type: acute Laterality: bilateral Acute non-recurrent sinusitis, unspecified location J01.90 Chronicity: acute Recurrence: non-recurrent Sinusitis location: unspecified location Mild asthma, unspecified whether complicated, unspecified whether persistent J45.909 Asthma complication type: unspecified Asthma persistence: unspecified Asthma severity: mild Time Spent (min) 23
== END 2024-01-25 11:07 | disposition home or self-care (01) ==
PROVIDERS: Visit Provider Nurse Practitioner Primary Care
DX: H10.33 Unspecified acute conjunctivitis, bilateral (principal); J01.90 Acute sinusitis, unspecified; J45.909 Unspecified asthma, uncomplicated
CPT/HCPCS: 99213

== ENCOUNTER 2024-02-16 14:30 | Outpatient (REF) | payer OTHER, SELFPAY ==
[2024-02-16 16:13] LABS: MANUAL DIFF FLAG NO
[2024-02-16 16:19] LABS: Basophils Absolute Auto 0.1 X10*3/uL (0.0-0.2); Basophils Percent Auto 0.8 % (0-2); Eosinophils Absolute Auto 0.1 X10*3/uL (0.0-0.4); Eosinophils Percent Auto 1.2 % (0-4); Hematocrit 43.9 % (37.0-47.0); Imm Gran Abs Auto 0.07 X10*3/uL (0.00-0.03); Imm Gran Pct Auto 0.8 % (0.0-0.4); Lymphocytes Percent Auto 33.9 % (20-40); Mean Corpuscular HGB Conc 34.2 g/dl (31.0-35.0); Mean Corpuscular Hemoglobin 33.4 pg (27.0-33.0); Mean Corpuscular Volume 97.8 fL (80.0-98.0); Mean Platelet Volume 10.5 fL (9.4-12.3); Monocytes Percent Auto 11.2 % (2-11); Neutrophils Absolute Auto 4.6 x10*3/uL (2.0-8.3); Neutrophils Percent Auto 52.1 % (45-73); Platelet Count 276 X10*3/uL (160-400); Red Blood Count 4.49 X10*6/uL (4.20-5.50); Red Cell Distribution Width 13.6 % (11.0-16.0); White Blood Count 8.8 X10*3/uL (4.8-10.8)
[2024-02-16 18:59] LABS: Alanine Aminotransferase 28 U/L (0-31); Albumin Level 4.4 g/dL (3.5-5.0); Alkaline Phosphatase 97 U/L (39-117); Anion Gap 19 (12-20); Aspartate Amino Transferase 29 U/L (5-31); Bilirubin Total 0.4 mg/dL (0.0-1.0); Blood Urea Nitrogen 10 mg/dL (9-16); Calcium 10.3 mg/dL (8.4-10.2); Carbon Dioxide 25 mmol/L (22-29); Chloride 99 mmol/L (96-108); Estimated Glomerular Filt Rate > 60; Glucose Random 96 mg/dL (60-115); Magnesium 1.7 mg/dL (1.6-2.6); Potassium 4.1 mmol/L (3.3-5.1); Sodium 139 mmol/L (135-145); Total Protein 7.8 g/dL (6.5-8.0)
== END 2024-02-16 14:31 | disposition home or self-care (01) ==
LOC: HO.HMGCLDS 14:30
PROVIDERS: PCP Nurse Practitioner Primary Care; Visit Provider Nurse Practitioner Primary Care
DX: Z91.89 Other specified personal risk factors, not elsewhere classified (principal); Z13.0 Encounter for screening for diseases of the blood and blood-forming organs and certain disorders involving the immune mechanism
CPT/HCPCS: 36415; 80053; 83735; 85025

== ENCOUNTER 2024-04-10 13:21 | Outpatient (AMB) | payer OTHER, SELFPAY ==
--- NOTE | 2024-04-10 13:23 | MHC.PC.OV ---
Vital Signs 04/10/24 13:31 Height 5 ft 5 in Weight 260 lb BMI 43.3 BP 158/76 H Blood Pressure Location Rt brachial Position Sitting Pulse 113 H Pulse Source Pulse Oximeter Pulse Oximetry (%) 98 Oxygen Delivery Method Room Air Intake Visit Reasons: Annual PE Intake Note: pt is here for annual PE. Mammogram 01/24/22. Colonoscopy 06/01/22. Allergies shellfish derived [SHELLFISH DERIVED] Allergy (Severe, Verified 04/10/24 14:19) anaphylaxis phenazopyridine [From PYRIDIUM] Adverse Reaction (Intermediate, Verified 04/10/24 14:19) VOMITING pregabalin [From LYRICA] Adverse Reaction (Intermediate, Verified 04/10/24 14:19) nausea and vomiting sertraline [From Zoloft] Adverse Reaction (Verified 04/10/24 14:19) suicidal ideation Medication List - Last Reconciled 04/10/24 by Brian Mcdaniel RESEARCH EDITOR albuterol sulfate 90 mcg/actuation (Ventolin HFA) 2 puffs inhalation Q6H PRN amoxicillin-pot clavulanate 875-125 mg 1 tab PO Q12H atorvastatin 20 mg PO DAILY budesonide-formoterol 160-4.5 mcg/actuation (Symbicort) 2 puffs inhalation Q12H cholecalciferol (vitamin D3) 125 mcg PO Q2D dicyclomine 10 mg PO BID PRN gabapentin 600 mg (2 x 300 mg) PO TID lorazepam mg PO PRN losartan-hydrochlorothiazide 50-12.5 mg 1 tab PO DAILY magnesium oxide 250 mg PO DAILY multivitamin 1 tab PO DAILY olopatadine 0.7% (Pataday Once Daily Relief) 1 drp ophthalmic (eye) DAILY PRN trazodone 50 mg PO BEDTIME PRN triamcinolone acetonide 2 sprays intranasal DAILY PRN triamcinolone acetonide 0.1% 1 appl topical DAILY vitamin B complex (B Complex-Vitamin B12 tablet) 1 tab PO DAILY PRN Tobacco use date assessed: 04/10/24 Dental Screening Dental Screen Date: 04/10/24 Did you have a dental visit in the last 12 months?: No Did you have a dental problem in the last 6 months where you did not have access to dental care?: No Was dental information given to patient?: No HPI HPI Comments History of Present Illness Details Patient is a 58-year-old female in today for a sick visit. Patient reports that she has been experiencing right ear pain times 7 days. Little relief with [id number] medication. She denies fevers or chills, but states this feels similar to ear infections she has had in the past. Denies dizziness, or headache. Patient also reports that she has been utilizing furosemide once per week to help with lower extremity swelling. Patient's blood pressure is elevated today. Recently took her off combination losartan/hydrochlorothiazide and have notice hypertension since then. Patient will be placed back on 50 losartan/12.5 mg hydrochlorothiazide, will be instructed to utilize furosemide no more than once per week. Patient states she understands. Patient has been educated on the potential for electrolytes imbalance will need to get a redraw of basic metabolic panel within the next 2 weeks. Patient also reports that she is getting little relief from olopatadine eye drops. Reports dry and itchy eyes. She states she has tried every eye drop there is, and would like a referral to opthalmology. [facility] Medical History Smoker Knee pain, right Former cigarette smoker Varicose veins of right lower extremity with inflammation Immunization declined Morbid obesity Family history of thyroid disease in mother Chronic low back pain History of uterine cancer Asthma Lymphedema Allergic rhinitis Diverticulosis Peripheral neuropathy Smoker unmotivated to quit Varicose veins of leg with swelling Vitamin D deficiency, unspecified Environmental allergies Anxiety and depression Cigarette smoker Dyslipidemia Essential hypertension Surgical History H/O tubal ligation History of appendectomy H/O colonoscopy Family History Father Substance use disorder Social History Housing: Apartment Patient Tobacco Use Status: Former Tobacco user Tobacco use type: Cigarette e-Cigarette/Vaping Use: Never Used service: No Current occupational status: unemployed Cognitive needs: No Hearing needs: No Vision needs: No Questionnaire Thrive Questionnaire Date Thrive assessed: 10/19/23 AUDIT C Alcohol Use Questionnaire (AUDIT-C) 1. How often do you have a drink containing alcohol?: 2-4 times a month 2. How many drinks containing alcohol do you have on a typical day when you are drinking?: 1 or 2 3. How often do you have six or more drinks on one occasion?: Never Total Score: 2 PRASHANTH-7 AMB Questionnaire PRASHANTH-7 Date PRASHANTH - 7 assessed: 10/19/23 Source: Developed by Drs. Jimenez Kahn, Harleen Quach, Cedric Mederos and colleagues, with an educational jonathan from [employer]. Review of Systems Const All systems reviewed & are unremarkable except as noted in HPI and below Reports chills, Denies fever(s) and Denies headache(s) Eyes Denies blurry vision, Denies diplopia, Reports dry eyes and Reports itchy eyes ENT Denies dizziness, Reports otalgia (Right-side) and Denies headache(s) Card Denies chest pain and Denies dyspnea Resp Denies cough, Denies dyspnea and Denies wheezing GI Denies diarrhea, Denies nausea and Denies vomiting Neuro Denies dizziness and Denies headache(s) Psych Denies homicidal ideation and Denies suicidal ideation Aller/Immun Reports itchy eyes and Denies wheezing Physical exam (Primary Care) Vital Signs: Last Vital Signs Pulse 113 H 04/10/24 13:31 BP 158/76 H 04/10/24 13:31 Pulse Ox 98 04/10/24 13:31 Oxygen Delivery Method Room Air 04/10/24 13:31 Care Plan Goal for BP management: Patient will be placed on losartan 50/hydrochlorothiazide 12.5 mg. this will replace losartan 50 mg Next steps: Take blood pressure values at home record them follow-up with the office in 2 weeks with values BMI result Body Mass Index 43.3 Tobacco/Smoking Status: Tobacco use Status Tobacco use date assessed 04/10/24 04/10/24 13:40 Patient Tobacco Use Status Former Tobacco user 04/10/24 13:24 Tobacco use type Cigarette 04/10/24 13:24 e-Cigarette/Vaping Use Never Used 04/10/24 13:24 Thrive Assessment: Date of Thrive Assessment Date Thrive assessed 10/19/23 04/10/24 13:24 Const Other: Appearance: Alert.? Oriented X3.? No acute distress.? Head: Normocephalic, atraumatic, no step-offs or deformities Eyes: Pupils equal, round and reactive to light.?Normal conjunctiva. Sclera white. ENT: Pharynx normal.?Right TM erythema and effusion. Left TM clear and perly tai. Neck: Normal inspection.? Neck supple.? CVS: Normal heart rate and rhythm.? Pulses normal.? Respiratory: No respiratory distress.? Breath sounds normal.? Abdomen: Soft and nontender.? Skin: Skin warm and dry.? Normal skin color.? Normal skin turgor.? Extremities: Scant lower extremity edema.? No calf ttp. 5/5 strength to bilateral upper and lower extremities Back: No midline tenderness, no C-spine tenderness, full range of motion, no CVA tenderness bilaterally Neuro: Oriented X 3.? No motor deficit.? No sensory deficit. CN 2-12 intact Assessment and Plan Assessment & Plan (1) Dry eyes: Comment: Patient uses Pataday which she says is having diminished effects. Patient has been instructed she can also utilize seasonal allergy medication. Patient would like referral to Ophthalmology. Will refer Code(s): H04.123 - Dry eye syndrome of bilateral lacrimal glands (2) Right otitis media: Comment: Will give Augmentin for 7 days p.o. b.i.d.. Patient has been instructed to finish the entire course the medication. She has been educated on side effects of this medication. Code(s): H66.91 - Otitis media, unspecified, right ear Qualifiers: Otitis media type: unspecified Qualified Code(s): H66.91 - Otitis media, unspecified, right ear Plan: Take your medications as prescribed. If you were prescribed antibiotics today, it is important that you take your medication to their entirety, do not skip any doses, do not finish them early. Follow-up with your primary care provider this week. Present to the emergency department with new or worsening symptoms. Such as fevers, chills, chest pain, shortness of breath, nausea, vomiting, dizziness, headache, vision changes, lethargy In case of emergency call 911 (3) Essential hypertension: Comment: Patient will be switched from 50 mg losartan to combination 50 mg losartan/12.5 mg hydrochlorothiazide. Patient has been educated to record her blood pressure measurements at home and call the office in give values. She has been educated on signs of worsening symptoms and when to report to the office or when to present to the ED Code(s): I10 - Essential (primary) hypertension Plan: Draw labs. Plan Follow-up and 6 months. Orders: Orders Basic Metabolic Panel 04/10/24 Z91.89 - Other specified personal risk factors, not elsewhere classified Referrals Dermatology Referral D22.9 - Melanocytic nevi, unspecified Ophthalmology Referral H04.123 - Dry eye syndrome of bilateral lacrimal glands Medications: New triamcinolone acetonide 0.1% 1 appl topical DAILY 30 grams 0RF losartan-hydrochlorothiazide 50-12.5 mg 1 tab PO DAILY 90 tabs 0RF amoxicillin-pot clavulanate 875-125 mg 1 tab PO Q12H 14 tabs 0RF Discontinued losartan Discontinued Reason: Doctor's Order 50 mg PO DAILY 90 tabs 0RF Coding Level of Care Code Est Pt Level 3 (91104) Diagnoses Dry eyes H04.123 Right otitis media, unspecified otitis media type H66.91 Otitis media type: unspecified Essential hypertension I10
[2024-04-10 13:31] VITALS: BP 158/76; PULSE 113; O2SAT 98; BMI 43.3
== END 2024-04-10 14:21 | disposition home or self-care (01) ==
PROVIDERS: Visit Provider Nurse Practitioner Primary Care
DX: H04.123 Dry eye syndrome of bilateral lacrimal glands (principal); H66.91 Otitis media, unspecified, right ear; I10 Essential (primary) hypertension
CPT/HCPCS: 99213

== ENCOUNTER 2024-09-25 14:03 | Outpatient (AMB) | payer OTHER, SELFPAY ==
[2024-09-25 14:06] VITALS: BP 134/72; PULSE 125; O2SAT 98; BMI 41.6
--- NOTE | 2024-09-25 14:06 | MHC.PC.OV ---
Vital Signs 09/25/24 14:06 Height 5 ft 5 in Weight 250 lb BMI 41.6 BP 134/72 Blood Pressure Location Lt brachial Position Sitting Pulse 125 H Pulse Source Pulse Oximeter Pulse Oximetry (%) 98 Oxygen Delivery Method Room Air Intake Visit Reasons: 3- 4 month follow up/Transfer from [facility]/HTN Intake Note: pt is here for 4 month follow up, regarding HTN. patient is here to also [facility] care, was a [facility] patient. Allergies shellfish derived [SHELLFISH DERIVED] Allergy (Severe, Verified 09/25/24 14:07) anaphylaxis phenazopyridine [From PYRIDIUM] Adverse Reaction (Intermediate, Verified 09/25/24 14:07) VOMITING pregabalin [From LYRICA] Adverse Reaction (Intermediate, Verified 09/25/24 14:07) nausea and vomiting sertraline [From Zoloft] Adverse Reaction (Verified 09/25/24 14:07) suicidal ideation Medication List - Last Reconciled 09/25/24 by MARIS Montalvo- albuterol sulfate 90 mcg/actuation (Ventolin HFA) 2 puffs inhalation Q6H PRN atorvastatin 20 mg PO DAILY budesonide-formoterol 160-4.5 mcg/actuation (Symbicort) 2 puffs inhalation Q12H cholecalciferol (vitamin D3) 125 mcg PO Q2D dicyclomine 10 mg PO BID PRN lorazepam mg PO PRN losartan-hydrochlorothiazide 50-12.5 mg 1 tab PO DAILY magnesium oxide 250 mg PO DAILY multivitamin 1 tab PO DAILY olopatadine 0.7% (Pataday Once Daily Relief) 1 drp ophthalmic (eye) DAILY PRN trazodone 50 mg PO BEDTIME PRN triamcinolone acetonide 0.1% 1 appl topical DAILY triamcinolone acetonide 2 sprays intranasal DAILY PRN vitamin B complex (B Complex-Vitamin B12 tablet) 1 tab PO DAILY PRN Tobacco use date assessed: 04/10/24 Dental Screening Dental Screen Date: 04/10/24 HPI 3- 4 month follow up/Transfer from [facility]/HTN HPI Details HTN: denies any CP, increased sob (does have a Hx of asthma), KELLER, blurred vision, or dizziness. Pt does smoke, is interested in the LDCT program, will refer. Tachycardic today, i'm always like that . Pt also sees a therapist and a psychiatrist REPLACED BY [facility] Medical History (Updated 09/25/24 @ 15:04 by Jair Brock, [facility]) Vitamin D deficiency, unspecified Smoker Knee pain, right Former cigarette smoker Varicose veins of right lower extremity with inflammation Immunization declined Morbid obesity Family history of thyroid disease in mother Chronic low back pain History of uterine cancer Asthma Lymphedema Allergic rhinitis Diverticulosis Peripheral neuropathy Smoker unmotivated to quit Varicose veins of leg with swelling Environmental allergies Anxiety and depression Cigarette smoker Dyslipidemia Essential hypertension Surgical History H/O tubal ligation History of appendectomy H/O colonoscopy Family History Father Substance use disorder Social History Housing: Apartment Patient Tobacco Use Status: Former Tobacco user Tobacco use type: Cigarette e-Cigarette/Vaping Use: Never Used service: No Current occupational status: unemployed Cognitive needs: No Hearing needs: No Vision needs: No Questionnaire PHQ-9 Over the last 2 weeks, how often have you been bothered by any of the following problems? 1. Little interest or pleasure in doing things: several days 2. Feeling down, depressed, or hopeless: several days 3. Trouble falling or staying asleep, or sleeping too much: several days 4. Feeling tired or having little energy: several days 5. Poor appetite or overeating: several days 6. Feeling bad about yourself - or that you are a failure or have let yourself or your family down: several days 7. Trouble concentrating on things, such as reading the newspaper or watching television: not at all 8. Moving or speaking so slowly that other people could have noticed. Or the opposite - being so fidgety or restless that you have been moving around a lot more than usual: not at all 9. Thoughts that you would be better off or of hurting yourself in some way: not at all Total score: 6 Depression Screening Interpretation: Negative Depression Screening Done: Yes 32205 - PHQ-9 Billing: Yes Source: Developed by Drs. Jimenez KahnHarleen Kurt Kroenke and colleagues, with an educational jonathan from [employer]. Thrive Questionnaire Date Thrive assessed: 09/19/24 I am a: Patient What is your living situation today?: I have a steady place to live Within the past 12 months, did the food you bought not last and you didn't have the money to get more?: Never true Within the past 12 months, did you worry whether your food would run out before you got money to buy more?: Never true Do you have trouble paying for medicines?: No Do you have trouble getting transportation to medical appointments?: No Do you have trouble paying your heating and electricity bill?: No Do you have trouble taking care of your child, family member or friend?: No Do you have trouble with day-to-day activities such as bathing, preparing meals, shopping, managing finances, etc.?: No Are you currently unemployed and looking for a job?: No Are you interested in more education?: No Please select the resources that you would like help with: None Currently or been in a relationship where the following occur: No concerns reported THRIVE Score: 0 AUDIT C Alcohol Use Questionnaire (AUDIT-C) 1. How often do you have a drink containing alcohol?: 2-3 times a week 2. How many drinks containing alcohol do you have on a typical day when you are drinking?: 1 or 2 3. How often do you have six or more drinks on one occasion?: Never Total Score: 3 Score Reviewed/Action Taken: Yes PRASHANTH-7 AMB Questionnaire PRASHANTH-7 Date PRASHANTH - 7 assessed: 09/25/24 Feeling nervous, anxious, or on edge: 2 = More than half the days Not being able to stop or control worryin = Several days Worrying too much about different things: 1 = Several days Trouble relaxin = More than half the days Being so restless that it is hard to sit still: 0 = Not at all Becoming easily annoyed or irritable: 1 = Several days Feeling afraid as if something awful might happen: 0 = Not at all Total PRASHANTH-7 score (0-4 normal; 5-9 mild; 10-14 moderate; 15-21 severe): 7 Source: Developed by Drs. Jimenez Kahn, Cedric Goyal and colleagues, with an educational jonathan from [employer]. PRASHANTH-7 Assessment Billing PRASHANTH-7 Assessment Tool: PRASHANTH-7 Assessment 01763 Physical exam (Primary Care) Vital Signs: Last Vital Signs Pulse 125 H 09/25/24 14:06 BP 134/72 09/25/24 14:06 Pulse Ox 98 09/25/24 14:06 Oxygen Delivery Method Room Air 09/25/24 14:06 BMI result Body Mass Index 41.6 Tobacco/Smoking Status: Tobacco use Status Tobacco use date assessed 04/10/24 09/25/24 14:08 Patient Tobacco Use Status Former Tobacco user 09/25/24 14:08 Tobacco use type Cigarette 09/25/24 14:08 e-Cigarette/Vaping Use Never Used 09/25/24 14:08 PHQ-9: PHQ-9 Score PHQ-9: Total score 6 09/25/24 14:51 Depression Screening Interpretation: Negative Thrive Assessment: Date of Thrive Assessment Date Thrive assessed 09/19/24 09/25/24 14:08 Currently or been in a relationship where the following occur: No concerns reported Const General: cooperative, healthy appearing, comfortable, well developed and anxious Resp Effort & Inspection: normal respiratory effort Auscultation: clear to auscultation bilaterally Cardio Rate: tachycardic Rhythm: regular rhythm Heart sounds: S1 normal heart sound present, S2 normal heart sound present and no murmurs Neuro Motor exam (neuro): 5/5 motor strength present throughout Extrem Other: lymphedema noted to BLE Coding Level of Care Code New Pt Level 3 (95808) Diagnoses Smoker F17.200 Essential hypertension I10 Vitamin D deficiency, unspecified E55.9 Tachycardia R00.0 Additional Codes PRASHANTH-7 Assessment Billing - PRASHANTH-7 Assessment Tool: PRASHANTH-7 Assessment 49073 ([id number]) PHQ-9 - 24199 - PHQ-9 Billing: Yes ([id number]) Assessment & Plan Assessment & Plan (1) Smoker: Code(s): F17.200 - Nicotine dependence, unspecified, uncomplicated Category: Social Hx (2) Essential hypertension: Code(s): I10 - Essential (primary) hypertension Category: Medical Plan: cont same med regime, labs (3) Vitamin D deficiency, unspecified: Code(s): E55.9 - Vitamin D deficiency, unspecified Category: Medical Plan: labs (4) Tachycardia: Code(s): R00.0 - Tachycardia, unspecified Category: Medical Plan: ekg sinus tach (pt is observably anxious) Plan . Orders: Orders Complete Blood Count Auto Diff Today F17.200 - Nicotine dependence, unspecified, uncomplicated, I10 - Essential (primary) hypertension Comprehensive [place]. Panel Fast Today F17.200 - Nicotine dependence, unspecified, uncomplicated, I10 - Essential (primary) hypertension UA CC w/rflx Micro + Cult Today F17.200 - Nicotine dependence, unspecified, uncomplicated, I10 - Essential (primary) hypertension Lipid Panel Today F17.200 - Nicotine dependence, unspecified, uncomplicated, I10 - Essential (primary) hypertension Vitamin D 25-OH Total Today E55.9 - Vitamin D deficiency, unspecified TSH reflex Free T4 Today F17.200 - Nicotine dependence, unspecified, uncomplicated, I10 - Essential (primary) hypertension AMB EKG-In Office Today R00.0 - Tachycardia, unspecified Referrals Lung Cancer Screening Referral F17.200 - Nicotine dependence, unspecified, uncomplicated
== END 2024-09-25 15:19 | disposition home or self-care (01) ==
PROVIDERS: PCP Nurse Practitioner Primary Care; Visit Provider Nurse Practitioner Family
DX: F17.200 Nicotine dependence, unspecified, uncomplicated (principal); I10 Essential (primary) hypertension; E55.9 Vitamin D deficiency, unspecified; R00.0 Tachycardia, unspecified

== ENCOUNTER → 2024-09-25 14:03 | Outpatient (BNVA) | payer OTHER, SELFPAY | PROVIDERS: PCP Nurse Practitioner Primary Care; Visit Provider Nurse Practitioner Family | DX: I10 Essential (primary) hypertension (principal); E55.9 Vitamin D deficiency, unspecified; F17.200 Nicotine dependence, unspecified, uncomplicated; Z71.6 Tobacco abuse counseling | CPT/HCPCS: 96127; 99202 ==

== ENCOUNTER 2025-03-31 11:36 | Outpatient (AMB) | payer OTHER, SELFPAY ==
--- NOTE | 2025-03-31 11:38 | A.OFFPC_ITS ---
Vital Signs 03/31/25 11:41 03/31/25 12:31 Height 5 ft 5 in Weight 243 lb 2 oz BMI 40.5 BP 136/84 Blood Pressure Location Rt brachial Position Sitting Pulse 112 H 98 Pulse Source Pulse Oximeter Temp 98.7 F Temp Source Oral Pulse Oximetry (%) 97 Oxygen Delivery Method Room Air Intake Visit Reasons: 6 months f/up Allergies shellfish derived [SHELLFISH DERIVED] Allergy (Severe, Verified 03/31/25 11:42) anaphylaxis phenazopyridine [From PYRIDIUM] Adverse Reaction (Intermediate, Verified 03/31/25 11:42) VOMITING pregabalin [From LYRICA] Adverse Reaction (Intermediate, Verified 03/31/25 11:42) nausea and vomiting sertraline [From Zoloft] Adverse Reaction (Verified 03/31/25 11:42) suicidal ideation bees Allergy (Mild, Uncoded 03/31/25 11:42) Swelling Tobacco use date assessed: 03/31/25 Dental Screening Dental Screen Date: 03/31/25 Did you have a dental visit in the last 12 months?: No Did you have a dental problem in the last 6 months where you did not have access to dental care?: No Was dental information given to patient?: No HPI 6 months f/up HPI Details Chief Complaint The patient presents for a six-month follow-up visit with concerns of lymphedema and right upper quadrant discomfort. History of Present Illness The patient is a 59-year-old female presenting with a six-month follow-up visit. She has a history of lymphedema, managed with home use of lymphedema pumps, currently graded as one plus to two in the lower extremities. She also experiences peripheral neuropathy, contributing to bilateral extremity weakness, and lives on the second floor, necessitating frequent stair climbing. The patient is morbidly obese and reports right upper quadrant discomfort, with a family history of gallbladder removal in her mother and daughter. She denies pain exacerbation with fatty foods and no rebound tenderness was observed on examination. Tolerating diet Her colonoscopy is current, and she was previously referred for a low-dose CT scan, which she missed due to scheduling conflicts. pt no showed her pft testing. left forearm dry skin lesion, will refer to derm Social History - Housing: Lives on the second floor, re quiring frequent stair climbing Health Maintenance - Colonoscopy: Up to date - Low-dose CT scan: Previously referred but not completed due to scheduling issues Review of Systems - Gastrointestinal: Reports right upper quadrant discomfort, denies pain with fatty foods - Neurological: Reports weakness in bila teral extremities -denies any n/v, fevers, chills, cp, sob , squires, blurred vision, skin drainage/redness. Physical Exam General: Cooperative, healthy appearing, comfortable, no acute distress and well developed, morbidly obese Orientation: Patient oriented x3 Limitations: Weakness, bilateral extremities, lymphedema Head: Normal to inspection Ears: Hearing grossly normal bilaterally Nose: Normal external nose present Face and sinus: Normal facial exam Eyes: Appearance normal, both eyes and all related structures Neck: Normal visual inspection and Yes full ROM Respiratory: Normal respiratory effort and able to speak in complete sentences. Clear to auscultation bilaterally Cardiovascular: Regular rate and rhythm. Normal S1 and S2 GI: Right upper quadrant discomfort reported. Normal to inspection. Soft to palpation and nontender. No rebound tenderness with palpation. Bowel sounds present. Skin: left forearm (distal to mid) with dry crusty lesion, slightly rasied, no surrounding erythema or tenderness. Neuro: Patient oriented x3, slight tremor noted, + sensation with use of monofilament to feet Extremities: Lymphedema present, 1+ to 2+ in lower extremities currently. Normal to inspection Results Plan The plan includes continuing the use of lymphedema pumps at home to manage her lymphedema. An abdominal ultrasound will be ordered to further evaluate the right upper quadrant discomfort, considering her family history of gallbladder issues. The patient will be rescheduled for a low-dose CT scan, as she missed the previous appointment due to scheduling conflicts. Assistance with household tasks will be explored to accommodate her physical limitations due to peripheral neuropathy and living situation. Discussion Notes I discussed with the patient the importance of continuing her current management for lymphedema and the need for an abdominal ultrasound to investigate her right upper quadrant discomfort. pt reported lasix helps sometimes, which i explained it's not known to help with lymphedema, though i will give a short duration to try. She will get labs drawn today (ordered back in september). We also talked about rescheduling her low-dose CT scan and exploring options for assistance with household tasks due to her physical limitations. Patient Instructions - Continue using lymphedema pumps as dir ected. - Schedule and attend the abdominal ultr asound appointment. - Reschedule the low-dose CT scan appoin tment. - Seek assistance for household tasks if needed. [facility] Medical History History of uterine cancer Lymphedema Tachycardia Essential hypertension Dyslipidemia Morbid obesity Asthma Nicotine dependence, cigarettes, uncomplicated Allergic rhinitis Environmental allergies Vitamin D deficiency, unspecified Diverticulosis Chronic low back pain Peripheral neuropathy Knee pain, right Varicose veins of leg with swelling Anxiety and depression Family history of thyroid disease in mother Immunization declined Surgical History History of History of tubal ligation History of colonoscopy History of appendectomy Family History Father Substance use disorder Social History Housing: Apartment Patient Tobacco Use Status: Former Tobacco user Tobacco use type: Cigarette e-Cigarette/Vaping Use: Never Used service: No Current occupational status: unemployed Cognitive needs: No Hearing needs: No Vision needs: No Questionnaire PHQ-9 Over the last 2 weeks, how often have you been bothered by any of the following problems? 1. Little interest or pleasure in doing things: several days 2. Feeling down, depressed, or hopeless: several days 3. Trouble falling or staying asleep, or sleeping too much: several days 4. Feeling tired or having little energy: more than half the days 5. Poor appetite or overeating: several days 6. Feeling bad about yourself - or that you are a failure or have let yourself or your family down: not at all 7. Trouble concentrating on things, such as reading the newspaper or watching television: several days 8. Moving or speaking so slowly that other people could have noticed. Or the opposite - being so fidgety or restless that you have been moving around a lot more than usual: not at all 9. Thoughts that you would be better off or of hurting yourself in some way: not at all Total score: 7 Depression Screening Interpretation: Positive (denies any si or hi) Depression Screening Follow-up: Existing condition and In treatment Depression Screening Done: Yes 97359 - PHQ-9 Billing: Yes Source: Developed by Drs. Jimenez Kahn, Harleen Quach, Cedric Mederos and colleagues, with an educational jonathan from [employer]. Thrive Questionnaire Date Thrive assessed: 03/28/25 I am a: Patient What is your living situation today?: I have a steady place to live Within the past 12 months, did the food you bought not last and you didn't have the money to get more?: Sometimes True Within the past 12 months, did you worry whether your food would run out before you got money to buy more?: Sometimes True Do you have trouble paying for medicines?: No Do you have trouble getting transportation to medical appointments?: Yes Do you have trouble paying your heating and electricity bill?: No Do you have trouble taking care of your child, family member or friend?: No Do you have trouble with day-to-day activities such as bathing, preparing meals, shopping, managing finances, etc.?: Yes Are you currently unemployed and looking for a job?: No Are you interested in more education?: No Please select the resources that you would like help with: Transportation and Care for elder or disabled Currently or been in a relationship where the following occur: No concerns reported THRIVE Score: 3 AUDIT C Alcohol Use Questionnaire (AUDIT-C) 1. How often do you have a drink containing alcohol?: 2-3 times a week 2. How many drinks containing alcohol do you have on a typical day when you are drinking?: 1 or 2 3. How often do you have six or more drinks on one occasion?: Never Total Score: 3 Score Reviewed/Action Taken: Yes PRASHANTH-7 AMB Questionnaire PRASHANTH-7 Date PRASHANTH - 7 assessed: 03/31/25 Feeling nervous, anxious, or on edge: 2 = More than half the days Not being able to stop or control worryin = Several days Worrying too much about different things: 1 = Several days Trouble relaxin = Nearly every day Being so restless that it is hard to sit still: 1 = Several days Becoming easily annoyed or irritable: 3 = Nearly every day Feeling afraid as if something awful might happen: 1 = Several days Total PRASHANTH-7 score (0-4 normal; 5-9 mild; 10-14 moderate; 15-21 severe): 12 Source: Developed by Drs. Jimenez Kahn, Harleen Quach, Cedric Mederos and colleagues, with an educational jonathan from [email or web address] PRASHANTH-7 Assessment Billing PRASHANTH-7 Assessment Tool: PRASHANTH-7 Assessment 95726 (denies any si or hi) Physical exam (Primary Care) Vital Signs: Last Vital Signs Temp 98.7 F 03/31/25 11:41 Pulse 112 H 03/31/25 11:41 BP 136/84 03/31/25 11:41 Pulse Ox 97 03/31/25 11:41 Oxygen Delivery Method Room Air 03/31/25 11:41 BMI result Body Mass Index 40.5 Tobacco/Smoking Status: Tobacco use Status Tobacco use date assessed 03/31/25 03/31/25 11:50 Patient Tobacco Use Status Former Tobacco user 03/31/25 11:41 Tobacco use type Cigarette 03/31/25 11:41 e-Cigarette/Vaping Use Never Used 03/31/25 11:41 PHQ-9: PHQ-9 Score PHQ-9: Total score 7 03/31/25 11:50 Depression Screening Interpretation: Positive (denies any si or hi) Depression Screening Follow-up: Existing condition and In treatment Thrive Assessment: Date of Thrive Assessment Date Thrive assessed 03/28/25 03/31/25 11:41 Currently or been in a relationship where the following occur: No concerns reported Coding Level of Care Code Est Pt Level 4 (95333) Diagnoses RUQ pain R10.11 Skin lesion L98.9 Peripheral neuropathy G62.9 Lymphedema I89.0 Additional Codes PHQ-9 - 37818 - PHQ-9 Billing: Yes ([id number]) PRASHANTH-7 Assessment Billing - PRASHANTH-7 Assessment Tool: PRASHANTH-7 Assessment 24060 ([id number]) Assessment & Plan Assessment & Plan (1) RUQ pain: Code(s): R10.11 - Right upper quadrant pain Category: Medical (2) Skin lesion: Code(s): L98.9 - Disorder of the skin and subcutaneous tissue, unspecified Category: Medical (3) Peripheral neuropathy: Code(s): G62.9 - Polyneuropathy, unspecified Category: Medical (4) Lymphedema: Comment: bilateral lower extremity, uses compression machine, and take furosemide prn swelling Code(s): I89.0 - Lymphedema, not elsewhere classified Category: Medical Plan . Orders: Orders US abdomen complete Today R10.11 - Right upper quadrant pain MM screening mammo BI Today Z12.31 - Encounter for screening mammogram for malignant neoplasm of breast Referrals 2 Dermatology Referral L98.9 - Disorder of the skin and subcutaneous tissue, unspecified Medications: New furosemide 10 mg (1/2 x 20 mg) PO Q OTHER DAY 20 days PRN 10 tabs 0RF edema
[2025-03-31 11:41] VITALS: BP 136/84; PULSE 112; TEMP 37.1; O2SAT 97; BMI 40.5
[2025-03-31 12:31] VITALS: PULSE 98
== END 2025-03-31 12:21 | disposition home or self-care (01) ==
LOC: HO.HMCC 11:36
PROVIDERS: PCP Nurse Practitioner Family; Visit Provider Nurse Practitioner Family
DX: R10.11 Right upper quadrant pain (principal); L98.9 Disorder of the skin and subcutaneous tissue, unspecified; G62.9 Polyneuropathy, unspecified; I89.0 Lymphedema, not elsewhere classified

== ENCOUNTER 2025-03-31 11:36 | Outpatient (REF) | payer OTHER, SELFPAY ==
[2025-03-31 16:09] LABS: Appearance Urine Cloudy; Color Urine Yellow; Glucose Urine UA 100 mg/dL (Negative); Leukocyte Esterase Urine Negative (Negative); Nitrite Urine Negative (Negative); Specific Gravity - Urine 1.025 (1.005-1.025); Urine Blood Negative (Negative); Urine Ketones Negative (Negative); Urine Protein Negative (Neg-Trace)
[2025-03-31 16:14] LABS: MANUAL DIFF FLAG NO
[2025-03-31 16:19] LABS: Basophils Absolute Auto 0.1 X10*3/uL (0.0-0.2); Basophils Percent Auto 0.5 % (0-2); Eosinophils Absolute Auto 0.1 X10*3/uL (0.0-0.4); Eosinophils Percent Auto 0.8 % (0-4); Hematocrit 37.3 % (37.0-47.0); Hemoglobin 12.9 g/dl (12.0-16.0); Imm Gran Abs Auto 0.09 X10*3/uL (0.00-0.03); Imm Gran Pct Auto 0.7 % (0.0-0.4); Lymphocytes Absolute Auto 2.3 X10*3/uL (1.2-4.9); Lymphocytes Percent Auto 18.6 % (20-40); Mean Corpuscular HGB Conc 34.6 g/dl (31.0-35.0); Mean Corpuscular Hemoglobin 35.4 pg (27.0-33.0); Mean Corpuscular Volume 102.5 fL (80.0-98.0); Mean Platelet Volume 11.3 fL (9.4-12.3); Monocytes Absolute Auto 1.1 X10*3/uL (0.1-1.2); Monocytes Percent Auto 8.8 % (2-11); Neutrophils Absolute Auto 8.6 x10*3/uL (2.0-8.3); Neutrophils Percent Auto 70.6 % (45-73); Platelet Count 311 X10*3/uL (160-400); Red Blood Count 3.64 X10*6/uL (4.20-5.50); Red Cell Distribution Width 13.3 % (11.0-16.0); White Blood Count 12.2 X10*3/uL (4.8-10.8)
[2025-03-31 16:51] LABS: Alanine Aminotransferase 24 U/L (0-31); Albumin Level 4.1 g/dL (3.5-5.0); Alkaline Phosphatase 136 U/L (39-117); Anion Gap 19 (12-20); Aspartate Amino Transferase 69 U/L (5-31); Bilirubin Total 0.5 mg/dL (0.0-1.0); Blood Urea Nitrogen 19 mg/dL (9-16); Calcium 9.7 mg/dL (8.4-10.2); Carbon Dioxide 26 mmol/L (22-29); Chloride 95 mmol/L (96-108); Cholesterol 131 mg/dL (<200); Estimated Glomerular Filt Rate 46; Glucose Fasting 132 mg/dL (60-99); HDL Cholesterol 54 mg/dL (>40); LDL Cholesterol Calculated 55 mg/dL (<100); Potassium 3.3 mmol/L (3.3-5.1); Sodium 137 mmol/L (135-145); Total Protein 7.1 g/dL (6.5-8.0); Triglycerides 114 mg/dL (<150)
[2025-03-31 17:00] LABS: TSH reflex Free T4 4.09 uIU/mL (0.32-4.0); Vitamin D 25-OH Total 42.8 ng/mL (>30)
[2025-03-31 18:44] LABS: Free T4 (Free Thyroxine) 1.07 ng/dL (0.71-1.85)
== END 2025-03-31 11:37 | disposition home or self-care (01) ==
LOC: HO.HMGCLDS 11:36
PROVIDERS: PCP Nurse Practitioner Family; Visit Provider Nurse Practitioner Family
DX: R10.11 Right upper quadrant pain (principal); L98.9 Disorder of the skin and subcutaneous tissue, unspecified; G62.9 Polyneuropathy, unspecified; I89.0 Lymphedema, not elsewhere classified; I10 Essential (primary) hypertension; F17.200 Nicotine dependence, unspecified, uncomplicated; E55.9 Vitamin D deficiency, unspecified
CPT/HCPCS: 36415; 80053; 80061; 81003; 82306; 84439; 84443; 85025; 96127; 99212

== ENCOUNTER 2025-05-02 09:12 | Outpatient (REF) | payer OTHER, SELFPAY ==
--- OUTSIDE RECORDS SUMMARY | 2025-05-02 09:18 | XMS_ITS | Clinical Summary ---
Author Organization [facility] Address [address] [place] [address] Care Team Providers Care Machine Quilt Stuffer Name Role Phone Unavailable Primary Care Provider Unavailabl e Surgical History Surgery Date Site/Laterality Comments APPENDECTOMY PROCEDURE: OR APPENDECTOMY CERVICAL BIOPSY W/ LOOP ELECTRODE EXCISION PROCEDURE: HISTORICAL CONE BIOPSY TUBAL LIGATION PROCEDURE: HISTORICAL TUBAL LIGATION OTHER SURGICAL HISTORY 05.08.14 PROCEDURE: MAMMOGRAM MYOMECTOMY 2010 PROCEDURE: OR LAPS MYOMECTOMY EXC 1-4 MYOMAS 250 GM/<; COMMENT: Horta- laparoscopic HYSTEROSCOPY 11/03/2017 PROCEDURE: OR HYSTEROSCOPY BX ENDOMETRIUM&/POLYPC W/WO D&C BREAST BIOPSY 2000 Left PROCEDURE: BX BREAST; PERC NEEDLE CORE W/IMAG GUID; COMMENT: neg x 3 BREAST SURGERY 2000 Left PROCEDURE: OR UNLISTED PROCEDURE BREAST; COMMENT: 3 exc bx neg Medical History Medical History Date Comments Essential hypertension 09/18/2015 DX:Essent ial hypertension Anxiety 09/18/2015 DX:Anxiety Post herpetic neuralgia 09/18/2015 DX:Post herpetic neuralgia PTSD (post-traumatic stress disorder) 09/27/2015 DX:PTSD (post-traumatic stress disorder) Fatty liver 09/27/2015 DX:Fatty liver Hyperlipidemia 09/27/2015 DX:Hyperlipidemi a Allergic rhinitis 09/27/2015 DX:Allergic rh initis Alcoholism (CMS/HCC V24, CMS/HCC V28) 11/29/2016 DX:Alcoholism (HCC); COMMENT: Onset approximately 2011. Family History Medical History Relation Name Comments Coronary artery disease Father Stroke Mother Breast cancer Other mat great aunt Relation Name Status Comments Father Mother Other mat great aunt Social History Tobacco Use Types Packs/Day Years Used Date Smoking Tobacco: Every Day Cigarettes 0.5 39.4 Started: 11/29/1985 Smokeless Tobacco: Current Alcohol Use Standard Drinks/Week Comments Yes 0 (1 standard drink = 0.6 oz pur e alcohol) Comments Unknown Sex and Gender Information Value Date Recorded Sex Assigned at Not on file Legal Sex Female 10:00 PM EST Gender Identity Not on file Sexual Orientation Not on file Obstetrics History Plan of Treatment Health Maintenance Due Date Last Done Comments DTaP,Tdap,and Td Vaccines (1 - Tdap) 1986 Hepatitis B Vaccines (1 of 3 - 19+ 3-dose series) 1986 Cervical Cancer Screening: P ap Smear 1988 Pneumococcal Vaccine: 50+ Years (1 of 1 - PCV) 2017 Zoster Vaccines (1 of 2) 2017 Breast Cancer Screening 03/20/2021 03/20/20 19, 04/05/2017 COVID-19 Vaccine (2023-2 5 season) 2024 Influenza Vaccine (#1) 2025 HIB Vaccines Aged Out No longer eligi ble based on patient's age to complete this topic HPV Vaccines Aged Out No longer eligi ble based on patient's age to complete this topic Hepatitis A Vaccines Aged Out No long er eligible based on patient's age to complete this topic IPV Vaccines Aged Out No longer eligi ble based on patient's age to complete this topic MMR Vaccines Aged Out No longer eligi ble based on patient's age to complete this topic Meningococcal ACWY Vaccine Aged Out N o longer eligible based on patient's age to complete this topic Meningococcal B Vaccine Aged Out No l onger eligible based on patient's age to complete this topic RSV Immunization Patients Under 20 months Aged Out No longer eligible b ased on patient's age to complete this topic Varicella Vaccines Aged Out No longer eligible based on patient's age to complete this topic Procedures Procedure Name Priority Date/Time Associated Diagnosis Comments SCR MAMMO BI INCL CAD Routine 03/20/2019 7:47 AM EDT Encounter for screening mammogram for malignant neoplasm of breast from Last 3 Months or Most Recently Relevant to Health Maintenance Results * SCR MAMMO BI INCL CAD (03/20/2019 7:47 AM EDT) Anatomical Region Laterality Modality Radiographic Macrina ging 02/26/2019 1:33 PM EDT Narrative 03/20/2019 9:38 AM EDT This is a summary report. The complete report is available in the patient's medical record. If you cannot access the medical record, please contact the sending organization for a detailed fax or copy. Full field digital screening mammography, reviewed with CAD and compared to previous. The breasts are composed of fatty and fibroglandular tissue. No suspicious mass, architectural distortion or suspicious calcifications are identified. IMPRESSION: : No mammographic evidence of malignancy. BIRADS 1-Negative; N. 5 year breast cancer risk assessment 1.3 % Lifetime breast cancer risk assessment 11.1 % Breast cancer risk category Low (<15%) Procedure Note Lauryn Restrepo MD - 10/04/2022 This is a summary report. The complete report is available in thepatient's medical record. If you cannot access the medical record, pleasecontact the sending organization for a detailed fax or copy. Full field digital screening mammography, reviewed with CAD and comparedto previous. The breasts are composed of fatty and fibroglandular tissue.No suspicious mass, architectural distortion or suspicious calcificationsare identified. IMPRESSION: : No mammographic evidence of malignancy. BIRADS 1-Negative; N. 5 year breast cancer risk assessment 1.3 % Lifetime breast cancer risk assessment 11.1 % Breast cancer risk category Low (<15%) Grisel Klein DO IMG XR PROCEDURES Final Result from Last 3 Months or Most Recently Relevant to Health Maintenance
[2025-05-02 11:30] LABS: Hepatitis A Antibody IgM 0.14 Index (0-0.79); ~Hepatitis A Antibody IgM Nonreactive (Nonreactive)
[2025-05-02 11:35] LABS: HBS Num1 0.00 mIU/mL (0-7.99); HBc Num1 0.03 S/CO (0.00-0.79); HBsAGNum1 0.33 S/CO (0.00-0.99); Hepatitis B Surface Antigen Negative (Negative); ~HepC Num1 0.15 S/CO (0.00-0.79); ~Hepatitis B Surface Antibody NONREACTIVE (Nonreactive); ~Hepatitis C Antibody Nonreactive (Nonreactive)
[2025-05-08 16:17] LABS: Alk.Phos Iso. Macrohepatic 0 % (<=0); Alk.Phos Isoenzymes Bone 23 % (28-66); Alk.Phos Isoenzymes Intest 4 % (1-24); Alk.Phos Isoenzymes Liver 73 % (25-69); Alk.Phos Isoenzymes Placental 0 % (<=0); Alk.Phos Isoenzymes Total 110 U/L (37-153)
== END 2025-05-02 09:13 | disposition home or self-care (01) ==
LOC: HO.HMGCLDS 09:12
PROVIDERS: PCP Nurse Practitioner Family; Visit Provider Nurse Practitioner Family
DX: R79.89 Other specified abnormal findings of blood chemistry (principal); R74.8 Abnormal levels of other serum enzymes; E11.9 Type 2 diabetes mellitus without complications; E78.5 Hyperlipidemia, unspecified; Z13.9 Encounter for screening, unspecified
CPT/HCPCS: 36415; 82947; 83036; 84080; 84443; 86376; 86704; 86706; 86709; 86803; 87340; 99202

== ENCOUNTER 2025-05-02 11:20 | Outpatient (AMB) | payer OTHER, SELFPAY ==
[2025-05-02 11:22] VITALS: BP 120/70; PULSE 107; O2SAT 97; BMI 39.1
--- NOTE | 2025-05-02 11:22 | MHC.OFFVIS ---
Vital Signs 05/02/25 11:22 Height 5 ft 5 in Weight 235 lb 3.732 oz BMI 39.1 BP 120/70 Blood Pressure Location Lt brachial Position Sitting Pulse 107 H Pulse Source Pulse Oximeter Pulse Oximetry (%) 97 Oxygen Delivery Method Room Air Intake Visit Reasons: Type 2 diabetes mellitus without complications Intake Note: Patient present today for Type 2 Diabetes Mellitus Last Diabetic eye exam: Many years ago, patient was advised to get referral to have eye exam. Last Podiatry Visit: Doesn't have one Random Glucose: 124 mg/dl HgA1C: 6.0% Rn Flight Required: No Accompanied by: Self / Same As Patient Allergies shellfish derived (SHELLFISH DERIVED) Allergy (Severe, Verified 05/02/25 11:28) anaphylaxis phenazopyridine (From PYRIDIUM) Adverse Reaction (Intermediate, Verified 05/02/25 11:28) VOMITING pregabalin (From LYRICA) Adverse Reaction (Intermediate, Verified 05/02/25 11:28) nausea and vomiting sertraline (From Zoloft) Adverse Reaction (Verified 05/02/25 11:28) suicidal ideation bees Allergy (Mild, Uncoded 05/02/25 11:28) Swelling HPI HPI Type 2 diabetes mellitus without complications: Details: Patient is a 59-year-old female with a significant past medical history of obesity, hypertension, hyperlipidemia and recent diagnosis of type 2 diabetes presenting today to establish care regarding her diabetes. Endo: Recently seen by PCP and noted to have elevated blood sugars. Her A1c today is 6. She is not currently on any medications. She says that she has been a prediabetic for about 10 years and over the last year has made significant lifestyle modifications. She has tried increasing her protein intake and reducing her carbohydrate intake. She says that she is only eating about 50 g of carbs today and does not want to meet with a organizational effectiveness director or health promotion educator. She states that she got a phone call stating that she possibly had diabetes and to follow up here and since that time she has been monitoring her diet even closer than she was over the past year. In the last year she has lost 25 lb with lifestyle modifications. She has been intentionally trying to lose the weight. Over the last month she has lost 8 lb and states that this is because she was told that she possibly has diabetes so she tried even harder with her diet. She does not have any testing supplies at home. Denies any symptoms of hyperglycemia but sometimes does feel like she gets a little shaky with low sugars but has never checked her sugar. States that she has a family history of type 2 diabetes CV: Blood pressure today in the office is 120/70. She is currently on losartan/hydrochlorothiazide 50/12.5 mg. Cholesterol is managed with atorvastatin 20 mg. [facility] Medical History History of uterine cancer Lymphedema Tachycardia Essential hypertension Dyslipidemia Morbid obesity Asthma Nicotine dependence, cigarettes, uncomplicated Allergic rhinitis Environmental allergies Vitamin D deficiency, unspecified Diverticulosis Chronic low back pain Peripheral neuropathy Knee pain, right Varicose veins of leg with swelling Anxiety and depression Family history of thyroid disease in mother Immunization declined Surgical History History of History of tubal ligation History of colonoscopy History of appendectomy Family History Father Substance use disorder Social History Housing: Apartment Patient Tobacco Use Status: Former Tobacco user Tobacco use type: Cigarette e-Cigarette/Vaping Use: Never Used service: No Current occupational status: unemployed Cognitive needs: No Hearing needs: No Vision needs: No Physical Exam Vital Signs: Last Vital Signs Pulse 107 H 05/02/25 11:22 BP 120/70 05/02/25 11:22 Pulse Ox 97 05/02/25 11:22 Oxygen Delivery Method Room Air 05/02/25 11:22 BMI result Body Mass Index 39.1 Const Orientation/consciousness: patient oriented x3 HEENT Ears: hearing grossly normal bilaterally Neck Thyroid: Thyroid normal Lymphatic: no lymphadenopathy noted Resp Auscultation: clear to auscultation bilaterally Cardio Rate: regular rate Rhythm: regular rhythm Heart sounds: S1 normal heart sound present and S2 normal heart sound present GI Inspection: Yes normal to inspection Palpation (GI): Soft to palpation and Other GI palpation findings present (nontender, no cva tenderness) Auscultation: normoactive bowel sounds Rectal Exam - Female: deferred Skin General skin exam: no rashes or lesions noted Neuro General: patient oriented x3, gait normal and no focal motor deficits Results AMB Hemoglobin A1c AMB Hemoglobin A1c 6.0 % Last Edit by JAVIER Lamar on 05/02/25 11:43 Results Reviewed Results Reviewed: Laboratory Last Values Glucose (Clinic) 124 mg/dL (60-115) H 05/02/25 11:32 Hgb A1c (Clinic) 6.0 % (4.0-6.0) 05/02/25 11:42 Assessment & Plan Assessment & Plan (1) Prediabetes: Code(s): R73.03 - Prediabetes Category: Medical Plan: spent 60 minutes in [id number] time reviewing the differences between type 1 and type 2 diabetes, the pathophysiology of diabetes, we discussed prediabetes at length as well and complications associated with high blood sugar. Reviewed complications such as increased risk of neuropathy, blindness, amputations, infections, [place], CVA etc.. We reviewed a diabetic diet. She also was provided a handout on nutrition and we reviewed the web sites available for her to continue reading on. Denies wanting to follow with a organizational effectiveness director for health promotion educator. She was given testing supplies today and shown how to use a glucometer. Reviewed signs and symptoms of hyper and hypoglycemia that would require emergent medical treatment. Given that she does not currently have diabetes she will be returned to her PCP for management and follow up if needed or if she needs any additional Education. (2) Essential hypertension: Code(s): I10 - Essential (primary) hypertension Category: Medical Plan: WNL. Continue current regimen (3) Dyslipidemia: Code(s): E78.5 - Hyperlipidemia, unspecified Category: Medical Plan: As above. Orders: Orders Glutamic acid decarboxylase Ab Today E78.5 - Hyperlipidemia, unspecified, I10 - Essential (primary) hypertension, R73.03 - Prediabetes AMB Hemoglobin A1c Today E11.9 - Type 2 diabetes mellitus without complications, Z13.9 - Encounter for screening, unspecified C Peptide Today E78.5 - Hyperlipidemia, unspecified, I10 - Essential (primary) hypertension, R73.03 - Prediabetes Islet Cell Antibody Scrn/Titer Today E78.5 - Hyperlipidemia, unspecified, I10 - Essential (primary) hypertension, R73.03 - Prediabetes Coding Level of Care Code New Pt Level 5 (44778) Complex EM visit Add On G2211 Diagnoses Prediabetes R73.03 Essential hypertension I10 Dyslipidemia E78.5
[2025-05-02 11:37] LABS: Glucose, Whole Blood 124 mg/dL (60-115)
== END 2025-05-02 12:17 | disposition home or self-care (01) ==
LOC: HO.ENCR 11:21
PROVIDERS: PCP Nurse Practitioner Family; Visit Provider Physician Assistant
DX: R73.03 Prediabetes (principal); I10 Essential (primary) hypertension; E78.5 Hyperlipidemia, unspecified; Z13.9 Encounter for screening, unspecified

== ENCOUNTER 2025-05-07 08:59 | Outpatient (REF) | payer OTHER, SELFPAY ==
--- NOTE | ~2025-05-07 | US_ITS ---
EXAMINATION: US ABDOMEN COMPLETE CLINICAL INFORMATION: Right upper quadrant abdominal pain.. COMPARISON: None available. TECHNIQUE: Real-time ultrasound of the abdomen using grayscale technique. FINDINGS: PANCREAS: No peripancreatic fluid collections. ABDOMINAL AORTA: Incomplete evaluation of the distal segment. No gross abnormal diameter. INFERIOR VENA CAVA: Visualized portions are normal. LIVER: Liver measures 20 cm. Increased echotexture. No gross nodular surface. No gross solid or cystic lesion detected by the technologist. No intrahepatic biliary ductal dilatation. GALLBLADDER: Fluid-filled. No pericholecystic fluid collection or gallbladder wall thickening. No distention. COMMON BILE DUCT: 2 mm. RIGHT KIDNEY: 10 cm. Normal echotexture. Normal renal cortical thickness. No hydronephrosis. No gross solid or cystic lesion detected.. LEFT KIDNEY: 11 cm. Normal echotexture. Normal renal cortical thickness. No hydronephrosis. No gross solid or cystic lesion detected. . SPLEEN: 9 cm. No focal lesion.. FREE FLUID: None. US/US abdomen complete IMPRESSION: Hepatomegaly and steatosis. No cholelithiasis or choledocholithiasis. No hydronephrosis. No ascites. Electronically signed by: Kilo Carty MD 05/07/2025 09:39 AM EDT
--- OUTSIDE RECORDS SUMMARY | 2025-05-07 09:27 | XMS_ITS | Clinical Summary ---
[facility] Organization [facility] Address [address] [place] [address] Care Team Providers Care Informal Waiter/Waitress Name Role Phone Unavailable Primary Care Provider Unavailabl e Surgical History Surgery Date Site/Laterality Comments APPENDECTOMY PROCEDURE: [place] APPENDECTOMY CERVICAL BIOPSY W/ LOOP ELECTRODE EXCISION PROCEDURE: HISTORICAL CONE BIOPSY TUBAL LIGATION PROCEDURE: HISTORICAL TUBAL LIGATION OTHER SURGICAL HISTORY 05.08.14 PROCEDURE: MAMMOGRAM MYOMECTOMY 2010 PROCEDURE: [place] LAPS MYOMECTOMY EXC 1-4 MYOMAS 250 GM/<; COMMENT: Horta- laparoscopic HYSTEROSCOPY 11/03/2017 PROCEDURE: [place] HYSTEROSCOPY BX ENDOMETRIUM&/POLYPC W/WO D&C BREAST BIOPSY 2000 Left PROCEDURE: BX BREAST; PERC NEEDLE CORE W/IMAG GUID; COMMENT: neg x 3 BREAST SURGERY 2000 Left PROCEDURE: [place] UNLISTED PROCEDURE BREAST; COMMENT: 3 exc bx [...] 04/05/2017 COVID-19 Vaccine (2023-2 5 season) 2024 Depression Screening 10/16/2024 Influenza Vaccine (#1) 2025 HIB Vaccines Aged [...]
== END 2025-05-07 09:00 | disposition home or self-care (01) ==
LOC: HO.HMGCX 08:59
PROVIDERS: PCP Nurse Practitioner Family; Visit Provider Nurse Practitioner Family
DX: R10.11 Right upper quadrant pain (principal); N63.11 Unspecified lump in the right breast, upper outer quadrant; F17.210 Nicotine dependence, cigarettes, uncomplicated
CPT/HCPCS: 76700; 99212

== ENCOUNTER → 2025-05-07 09:02 | Outpatient (BNV) | payer OTHER, SELFPAY | PROVIDERS: PCP Nurse Practitioner Family; Visit Provider Radiology Diagnostic Radiology | DX: R16.0 Hepatomegaly, not elsewhere classified (principal) | CPT/HCPCS: 76700 ==

== ENCOUNTER 2025-05-07 09:30 | Outpatient (AMB) | payer OTHER, SELFPAY ==
[2025-05-07 09:36] VITALS: BP 122/70; PULSE 87; TEMP 36.9; O2SAT 98; BMI 39.4
--- NOTE | 2025-05-07 09:36 | AM.OFFWIN_ITS ---
Intake Vital Signs 3 05/07/25 09:36 Height 5 ft 5 in Weight 237 lb BMI 39.4 BP 122/70 Blood Pressure Location Rt brachial Position Sitting Pulse 87 Pulse Source Pulse Oximeter Temp 98.4 F Temp Source Oral Pulse Oximetry (%) 98 Oxygen Delivery Method Room Air Intake Visit Reasons: EP Lump on RT breast Patient Tobacco Use Status: Former Tobacco user Activities Officer Required: No Allergies shellfish derived (SHELLFISH DERIVED) Allergy (Severe, Verified 05/07/25 09:42) anaphylaxis phenazopyridine (From PYRIDIUM) Adverse Reaction (Intermediate, Verified 05/07/25 09:42) VOMITING pregabalin (From LYRICA) Adverse Reaction (Intermediate, Verified 05/07/25 09:42) nausea and vomiting sertraline (From Zoloft) Adverse Reaction (Verified 05/07/25 09:42) suicidal ideation bees Allergy (Mild, Uncoded 05/02/25 11:28) Swelling Medication List - Last Reconciled 05/07/25 by Chi Weaver MD atorvastatin 20 mg PO DAILY blood sugar diagnostic (FreeStyle Lite Strips) Test blood sugar once a day blood-glucose meter (FreeStyle Lite Meter kit) Test blood sugar once a day cholecalciferol (vitamin D3) 125 mcg PO Q2D dicyclomine 10 mg PO BID PRN furosemide 10 mg (1/2 x 20 mg) PO Q OTHER DAY PRN 20 days lancets (FreeStyle Lancets) Test blood sugar once a day lorazepam mg PO PRN losartan-hydrochlorothiazide 50-12.5 mg 1 tab PO DAILY trazodone 50 mg PO BEDTIME PRN triamcinolone acetonide 2 sprays intranasal DAILY PRN Ventolin HFA 90 mcg/actuation (albuterol sulfate) 1 puff inhalation QID PRN NS vitamin B complex (B Complex-Vitamin B12 tablet) 1 tab PO DAILY PRN Do you need a note to return to daycare/school/sports/work: No HPI EP Lump on RT breast 2 HPI0 Details History - The patient is a 59-year-old female pr esenting with a palpable lump in the right breast. - The lump was first noticed by the dustin ent one day prior to the visit during her routine breast self-examination in the shower. - The lump is located next to the Montgo eron gland on the right side. - The patient reports tenderness in the area, without any discharge from the nipple. - The patient has a history of breast lepe rgery in 2000 for the removal of three lumps from the left upper breast, which were benign. - Patient reports large breast size, whi ch occasionally complicates self- inspection. Surgical History: - Prior breast surgery in 2000 for remov al of three benign lumps from the left upper breast. Social History: - Performs regular breast self-examinati ons every of the month. Problem List - Palpable breast lump - History of benign breast lumps Patient Instructions - Obtain an ultrasound and mammogram. Review of Systems - General: No fever no chills - Neurological: No headaches no dizziness - Ear nose throat: No sore throat no hearing difficulty no ear pain - Cardiovascular: No syncope, no chest pain, no palpitations - Gastrointestinal: No nausea vomiting or diarrhea Physical Exam - General: No acute distress - HEENT: No acute findings - Neck: Supple - Respiratory system: Able to talk in f ull sentences, - Breast exam: Fibro nodular breasts, u pper outer quadrant close to nipple deep palpation causes discomfort due to size of breast lump was not felt clearly - Gastrointestinal: No pain - Extremities: No new findings - DESIGN PRINTING MACHINE SETTER: Alert awake oriented x3 motor se nsory intact - Skin: Normal turgor PFSH Medical History History of uterine cancer Lymphedema Tachycardia Essential hypertension Dyslipidemia Morbid obesity Asthma Nicotine dependence, cigarettes, uncomplicated Allergic rhinitis Environmental allergies Vitamin D deficiency, unspecified Diverticulosis Chronic low back pain Peripheral neuropathy Knee pain, right Varicose veins of leg with swelling Anxiety and depression Family history of thyroid disease in mother Immunization declined Surgical History History of History of tubal ligation History of colonoscopy History of appendectomy Family History Father Substance use disorder Social History Housing: Apartment Patient Tobacco Use Status: Former Tobacco user Tobacco use type: Cigarette e-Cigarette/Vaping Use: Never Used service: No Current occupational status: unemployed Cognitive needs: No Hearing needs: No Vision needs: No Physical Exam Vital Signs: Last Vital Signs Temp 98.4 F 05/07/25 09:36 Pulse 87 05/07/25 09:36 BP 122/70 05/07/25 09:36 Pulse Ox 98 05/07/25 09:36 Oxygen Delivery Method Room Air 05/07/25 09:36 BMI result Body Mass Index 39.4 Chest Chest/axillae images: 2 1. Site of pain with deep palpation Assessment & Plan Assessment & Plan (1) Breast lump in upper outer quadrant: Code(s): N63.0 - Unspecified lump in unspecified breast Plan History - The patient is a 59-year-old female presenting with a palpable lump in the right breast. - The lump was first noticed by the patient one day prior to the visit during her routine breast self-examination in the shower. - The lump is located next to the Julio gland on the right side. - The patient reports tenderness in the area, without any discharge from the nipple. - The patient has a history of breast surgery in 2000 for the removal of three lumps from the left upper breast, which were benign. - Patient reports large breast size, which occasionally complicates self- inspection. Surgical History: - Prior breast surgery in 2000 for removal of three benign lumps from the left upper breast. Social History: - Performs regular breast self-examinations every of the month. Problem List - Palpable breast lump - History of benign breast lumps Patient Instructions - Obtain an ultrasound and mammogram. Orders: Orders 2 US breast RT complete Today N63.0 - Unspecified lump in unspecified breast MM tomosynthesis diagnostic RT Today N63.0 - Unspecified lump in unspecified breast Coding Level of Care Code Est Pt Level 3 (23552) Diagnoses Breast lump in upper outer quadrant N63.0
== END 2025-05-07 10:00 | disposition home or self-care (01) ==
PROVIDERS: PCP Nurse Practitioner Family; Visit Provider Internal Medicine
DX: N63.0 Unspecified lump in unspecified breast (principal)

== ENCOUNTER 2025-06-17 11:24 | Outpatient (REF) | payer OTHER, SELFPAY ==
--- NOTE | ~2025-06-17 | MM_ITS ---
EXAMINATION (S): 1. MM DIAGNOSTIC DIGITAL BREAST TOMOSYNTHESIS, BILATERAL 2. Targeted ultrasound of the right breast CLINICAL INFORMATION: Right breast lump at 9:00-10:00 COMPARISON: Comparison made to multiple prior, most recent January 24, 2022, and most remote March 28, 2016. TECHNIQUE: Digital breast tomosynthesis is performed in both the mediolateral oblique and craniocaudal views along with computer-aided detection (CAD). Synthesized 2D images are generated from the tomosynthesis. Spot compression tomosynthesis of the right breast were obtained. A skin BB marker was placed at the location of the palpable concern in the right breast. FINDINGS: BREAST COMPOSITION: There are scattered areas of fibroglandular density (ACR BI-RADS breast composition Category b). RIGHT BREAST: There is focal asymmetry in the upper outer quadrant extending from the nipple for approximately 8 cm long, subjacent to the skin BB marker, that persists with spot compression, and is associated with punctate calcifications. Targeted ultrasound of the right breast was performed at the location of the palpable concern and mammographic finding. The survey was performed throughout the 8:00-10:00 axis. The survey shows mildly ectatic ducts, some of them filled with echogenic content along the 10:00 axis. At the location of palpation concern, centered at 10:00 at 1 cm from the nipple, there is an ill-defined echogenic area containing ectatic ducts and cysts measuring at least 2.4 cm x 1.0 cm. No abnormal vascularity with color Doppler evaluation. LEFT BREAST: No significant masses, suspicious calcifications or other abnormalities are seen. MM/MM tomosynthesis diagnostic BI IMPRESSION: RIGHT BREAST: Focal asymmetry in the upper outer quadrant that extends for approximately 8 cm from the nipple. The palpable concern appears to correlate with an ill-defined echogenic area containing ectatic ducts (some containing debris) and small cysts. An ultrasound-guided needle core biopsy with clip placement is recommended. LEFT BREAST: Negative, no mammographic evidence of malignancy. Normal interval follow-up is recommended in 12 months. ASSESSMENT: BI-RADS 4 - Suspicious finding RECOMMENDATION: Biopsy recommended Results were discussed with the patient at time of visit. Electronically signed by: Zaira Ledesma MD 06/17/2025 05:47 PM EDT
--- OUTSIDE RECORDS SUMMARY | 2025-06-17 13:08 | XMS_ITS | Encounter Summary ---
Author Organization [facility] Address [address] [place] [address] Care Team Providers Care Creative Services Intern Name Role Phone Grisel Castillo DO Primary Care Pro vider Unavailable Jimenez Hernandez DO Primary Care Provider Patricia [facility], Pcp Primary Care Provider Unavailabl e Reason for Referral * Non BRITT (Priority) - Authorized/Booked Specialty Diagnoses / Procedures Referred By Re mcfarland Referred To Contact Mental Health Procedures REFERRAL TO BEHAVIORAL HEALTH Grisel Castillo DO [address] [place] [id number] [place] [address]/[address] [address] Referral ID Status Reason Start Date Expiration Date V isits Requested Visits Authorized APPT BOOKED Authorized/B ooked 04/26/2018 04/26/2019 1 1 * EXTERNAL (Routine) - Authorized/Booked Specialty Diagnoses / Procedures Referred By Re mcfarland Referred To Contact Vascular Surgery Procedures REFERRAL [place] [address] [place] [id number] Luther Burroughs MD [address] [facility] [address] [place] [phone] Referral ID Status Reason Start Date Expiration Date V isits Requested Visits Authorized SEE NOTE Authorized/B ooked 04/26/2018 07/28/2018 1 1 Encounter Details Date Type Department Care Team Description 04/26/2018 Orders Only Adult Medicine [address] [address] Grisel Castillo DO Social History Tobacco Use Types Packs/Day Years Used Date Smoking Tobacco: Every Day Cigarettes 0.5 30 Started: 11/29/1985 Smokeless Tobacco: Never Comments:started @ age 20 Alcohol Use Standard Drinks/Week Comments Yes 0 (1 standard drink = 0.6 oz pur e alcohol) 6 glasse of wine daily Sex Assigned at Date Recorded Not on file documented as of this encounter Plan of Treatment Not on file documented as of this encounter Visit Diagnoses Not on filedocumented in this encounter Care Teams Creative Services Intern Relationship Specialty Start Date End Date Grisel Castillo DO PCP - General Internal Medicine 08/02/16 03/22/21 Jimenez Hernandez DO PCP - General Internal Medicine 03/23/21 1 [facility], Pcp PCP - General Internal Medicine 06/28/21 documented as of this encounter
--- OUTSIDE RECORDS SUMMARY | 2025-06-17 13:08 | XMS_ITS | Encounter Summary ---
Author Organization [facility] Address [address] [place] [address] Care Team Providers Care Forest Ecologist Name Role Phone Jimenez Hernandez DO Primary Care Provider Patricia rodriguez [facility], Pcp Primary Care Provider Unavailabl e Encounter Details Date Type Department Care Team Description 04/07/2021 Refill Adult Medicine [address] [address] Jimenez Hernandez DO Social History Tobacco Use Types Packs/Day Years Used Date Smoking Tobacco: Every Day Cigarettes 0.5 30 Started: 11/29/1985 Smokeless Tobacco: Current Comments:started @ age 20 Alcohol Use Standard Drinks/Week Comments Yes 0 (1 standard drink = 0.6 oz pur e alcohol) occasional Sex Assigned at Date Recorded Not on file COVID-19 Exposure Response Date Recorded In the last month, have you been in contact with someone who was confirmed or suspected to have Coronavirus / COVID-19? Unable to assess 03/22/2021 8:34 AM EDT documented as of this encounter Plan of Treatment Not on file documented as of this encounter Visit Diagnoses Not on filedocumented in this encounter Care Teams Forest Ecologist Relationship Specialty Start Date End Date Jimenez Hernandez DO PCP - General Internal Medicine 03/23/21 1 [facility], Pcp PCP - General Internal Medicine 06/28/21 documented as of this encounter
--- OUTSIDE RECORDS SUMMARY | 2025-06-17 13:08 | XMS_ITS | Encounter Summary ---
Author Organization [facility] Address [address] [place] [address] Care Team Providers Care Plate Cleaner Name Role Phone Grisel Castillo DO Primary Care Pro vider Unavailable Jimenez Hernandez DO Primary Care Provider Patricia jennifer [facility], Pcp Primary Care Provider Unavailabl e Encounter Details Date Type Department Care Team Description 03/16/2020 Refill Adult Medicine - [address] [address] Grisel Castillo DO Social History Tobacco Use [...] on filedocumented in this encounter Care Teams Plate Cleaner Relationship Specialty Start Date End Date Grisel Castillo DO PCP - General Internal Medicine 08/02/16 03/22/21 Jimenez Hernandez DO PCP - General Internal Medicine 03/23/21 Gretchen, Pcp PCP - General Internal Medicine 06/28/21 documented as of this encounter
--- OUTSIDE RECORDS SUMMARY | 2025-06-17 13:08 | XMS_ITS | Encounter Summary ---
Author Organization [facility] Address [address] [place] [address] Care Team Providers Care Industrial Safety And Health Technician Name Role Phone Grisel Castillo DO Primary Care Pro vider Unavailable Jimenez Hernandez DO Primary Care Provider Patricia [facility], Pcp Primary Care Provider Unavailabl e Reason for Visit * Reason Comments E-prescribe Rx Request Encounter Details Date Type Department Care Team Description 06/12/2019 Refill Adult Medicine [address] [address] Denise Roman PA-C E-prescribe Rx Request Social History Tobacco Use Types Packs/Day Years Used Date Smoking Tobacco: Every Day Cigarettes 0.5 30 Started: 11/29/1985 Smokeless Tobacco: Current Comments:started @ age 20 Alcohol Use Standard Drinks/Week Comments Yes 0 (1 standard drink = 0.6 oz pur e alcohol) 6 glasse of wine daily Sex Assigned at Date Recorded Not on file documented as of this encounter Miscellaneous Notes * Telephone Encounter - Wanda Sexton M.A. - 06/13/2019 3:24 PM EDT Lab Results Component Value Date NA 137 02/26/2019 K 4.0 02/26/2019 CO2 30 02/26/2019 CL 97 02/26/2019 BUN 12 02/26/2019 CREAT 0.82 02/26/2019 GLU 113 02/26/2019 CA 9.4 02/26/2019 GFR > 60 02/26/2019 * Telephone Encounter - Laura Dileep - 06/12/2019 9:04 AM EDT Patient would like script to be: E-PRESCRIBED/FAXED TO PHARMACY WHEN WAS THE PATIENT'S LAST APPOINTMENT IN ADULT MEDICINE? 06-11-19 WHEN WAS THE LAST TIME THE PATIENT SAW THEIR PCP? Same as above Does patient have an upcoming appointment? No-patient refused appointment, will call back to book appointment (THE MEDICATION REQUESTED IS ON THE MED LIST ABOVE) All of the medications requested were on the CURRENT MEDS list Did you check the Pharmacy information above?: YES Patient wants: 30 -day supply Is this a mail order prescription request ? YES If the refill is from a FAXED refill request what is the RX # listed on the fax? N/A Patients current insurance carrier is: Payor: [employer] FFS / Plan: [facility] ALLIANCE / Product Type: MEDICAID RISK documented in this encounter Plan of Treatment Not on file documented as of this encounter Visit Diagnoses Diagnosis Essential hypertension Unspecified essential hypertension documented in this encounter Care Teams Industrial Safety And Health Technician Relationship Specialty Start Date End Date Grisel Castillo DO PCP - General Internal Medicine 08/02/16 03/22/21 Jimenez Hernandez DO PCP - General Internal Medicine 03/23/21 1 [facility], Pcp PCP - General Internal Medicine 06/28/21 documented as of this encounter
--- OUTSIDE RECORDS SUMMARY | 2025-06-17 13:08 | XMS_ITS | Encounter Summary ---
Author Organization [facility] Address [address] [place] [address] Care Team Providers Care Librarian Helper Name Role Phone Keren Casas MD Primary Care Provider Grisel Castillo DO Primary Care Pro vider Unavailable Rod Pires MD Primary Care Provide r Unavailable Grisel Castillo DO Primary Care Pro vider Unavailable Jimenez Hernandez DO Primary Care Provider [facility] Pcp Primary Care Provider Unavailabl e Encounter Details Date Type Department Care Team Description 10/15/2015 MOLD CAR PUSHER/[facility] Report Medical Records [address] [place] [address] Abstract, Provider Social History Tobacco Use Types Packs/Day Years Used Date Smoking Tobacco: Every Day Cigarettes 1 Alcohol Use Standard Drinks/Week Comments Not Asked 0 (1 standard drink = 0.6 oz pur e alcohol) Sex Assigned at Date Recorded Not on file documented as of this encounter Plan of Treatment Not on file documented as of this encounter Visit Diagnoses Not on filedocumented in this encounter Care Teams Librarian Helper Relationship Specialty Start Date End Date Keren Casas MD [address] [place] [address] PCP - General Internal Medicine 09/09/15 10/29/15 Grisel Castillo DO [address] [place] [address] PCP - General Internal Medicine 10/30/15 07/19/16 Rod Pires MD [address] [place] [address] PCP - General Internal Medicine 07/20/16 08/01/16 Grisel Castillo DO [address] [place] [address] PCP - General Internal Medicine 08/02/16 03/22/21 Jimenez Hernandez DO [address] [place] [address] PCP - General Internal Medicine 03/23/21 06/27/21 [facility], Pcp [address] [place] [address] PCP - General Internal Medicine 06/28/21 documented as of this encounter
--- OUTSIDE RECORDS SUMMARY | 2025-06-17 13:08 | XMS_ITS | Encounter Summary ---
Author Organization [facility] Address [address] [place] [address] Care Team Providers Care Helmet Binder Name Role Phone Grisel Castillo DO Primary Care Pro vider Unavailable Rod Pires MD Primary Care Provide r Unavailable Grisel Castillo DO Primary Care Pro vider Unavailable Jimenez Hernandez DO Primary Care Provider [facility], Pcp Primary Care Provider Unavailabl e Encounter Details Date Type Department Care Team Description 03/02/2016 MEDICAL LEADER/[facility] Report Medical Records [address] [place] [id number] Abstract, Provider Social History Tobacco Use Types Packs/Day Years Used Date Smoking Tobacco: Every Day Cigarettes 1 Smokeless Tobacco: Never Comments:started @ age 20 Alcohol Use Standard Drinks/Week Comments Yes 0 (1 standard drink = 0.6 oz pur e alcohol) at least 2 glasses wine daily Sex Assigned at Date Recorded Not on file documented as of this encounter Plan of Treatment Not on file documented as of this encounter Visit Diagnoses Not on filedocumented in this encounter Care Teams Helmet Binder Relationship Specialty Start Date End Date Grisel Castillo DO PCP - General Internal Medicine 10/30/15 07/19/16 Rod Pires MD PCP - General Internal Medicine 07/20/16 1 Grisel Castillo DO PCP - General Internal Medicine 08/02/16 03/22/21 Jimenez Hernandez DO PCP - General Internal Medicine 03/23/21 1 [facility], Pcp PCP - General Internal Medicine 06/28/21 documented as of this encounter
--- OUTSIDE RECORDS SUMMARY | 2025-06-17 13:08 | XMS_ITS | Encounter Summary ---
Author Organization [facility] Address [address] [place] [address] Care Team Providers Care Business Law Professor Name Role Phone Grisel Castillo DO Primary Care Pro vider Unavailable Rod Pires MD Primary Care Provide r Unavailable Grisel Castillo DO Primary Care Pro vider Unavailable Jimenez Hernandez DO Primary Care Provider [facility], Pcp Primary Care Provider Unavailabl e Encounter Details Date Type Department Care Team Description 03/08/2016 Release of Information Medical Records [address] [place] [id number] Abstract, Provider Social History Tobacco Use Types [...] on filedocumented in this encounter Care Teams Business Law Professor Relationship Specialty Start Date End Date Grisel Castillo DO PCP - General Internal Medicine 10/30/15 07/19/16 Rod Pires MD PCP - General Internal Medicine 07/20/16 1 Grisel Castillo DO PCP - General Internal Medicine 08/02/16 03/22/21 Jimenez Hernandez DO PCP - General Internal Medicine 03/23/21 1 [facility], Pcp PCP - General Internal Medicine 06/28/21 documented as of this encounter
--- OUTSIDE RECORDS SUMMARY | 2025-06-17 13:08 | XMS_ITS | Encounter Summary ---
Author Organization [facility] Address [address] [place] [address] Care Team Providers Care Stapler Coil Unit Name Role Phone Grisel Castillo DO Primary Care Pro vider Unavailable Jimenez Hernandez DO Primary Care Provider Patricia Godinez Pcp Primary Care Provider Unavailabl e Encounter Details Date Type Department Care Team Description 03/23/2017 PNO Controlled Substance Contract Medical Records [address] [place] [address] Abstract, Provider Social History Tobacco Use Types [...] on filedocumented in this encounter Care Teams Stapler Coil Unit Relationship Specialty Start Date End Date Grisel Castillo DO PCP - General Internal Medicine 08/02/16 03/22/21 Jimenez Hernandez DO PCP - General Internal Medicine 03/23/21 Desmond Godinez PCP - General Internal Medicine 06/28/21 documented as of this encounter
--- OUTSIDE RECORDS SUMMARY | 2025-06-17 13:08 | XMS_ITS | Encounter Summary ---
Author Organization [facility] Address [address] [place] [address] Care Team Providers Care Career Coordinator Name Role Phone Grisel Castillo DO Primary Care Pro vider Unavailable Rod Pires MD Primary Care Provide r Unavailable Grisel Castillo DO Primary Care Pro vider Unavailable Jimenez Hernandez DO Primary Care Provider [facility], Pcp Primary Care Provider Unavailabl e Encounter Details Date Type Department Care Team Description 04/07/2016 Transfer Records Medical Records [address] [place] [id number] Abstract, Provider Social History Tobacco Use Types [...] on filedocumented in this encounter Care Teams Career Coordinator Relationship Specialty Start Date End Date Grisel Castillo DO PCP - General Internal Medicine 10/30/15 07/19/16 Rod Pires MD PCP - General Internal Medicine 07/20/16 1 Grisel Castillo DO PCP - General Internal Medicine 08/02/16 03/22/21 Jimenez Hernandez DO PCP - General Internal Medicine 03/23/21 1 [facility], Pcp PCP - General Internal Medicine 06/28/21 documented as of this encounter
--- OUTSIDE RECORDS SUMMARY | 2025-06-17 13:08 | XMS_ITS | Encounter Summary ---
Author Organization [facility] Address [address] [place] [address] Care Team Providers Care Mobile Home Technician Name Role Phone Grisel Castillo DO Primary Care Pro vider Unavailable Jimenez Hernandez DO Primary Care Provider [facility], Pcp Primary Care Provider Unavailabl e Reason for Visit * Reason Comments E-prescribe Rx Request Encounter Details Date Type Department Care Team Description 06/12/2019 Refill Adult Medicine [address] [address] Grisel Castillo DO E-prescribe Rx Request Social History Tobacco Use [...] encounter Miscellaneous Notes * Telephone Encounter - Santi Castro PA-C - 06/13/2019 11:23 AM EDT Ok to fill. Louisa Shabazz * Telephone Encounter - Rosita Isabel - 06/13/2019 11:17 AM EDT Last ov 06/11/2019 Lab Results Component Value Date NA 137 02/26/2019 K 4.0 02/26/2019 CO2 30 02/26/2019 CL 97 02/26/2019 BUN 12 02/26/2019 CREAT 0.82 02/26/2019 GLU 113 02/26/2019 CA 9.4 02/26/2019 GFR > 60 02/26/2019 * Telephone Encounter - Laura Falk - 06/12/2019 9:28 AM EDT Patient would like script to [...] N/A Patients current insurance carrier is: Payor: [employer] FFS / Plan: [employer] ALLIANCE / Product Type: MEDICAID RISK documented in this encounter Plan of Treatment Not on file documented as of this encounter Visit Diagnoses Diagnosis Essential hypertension Unspecified essential hypertension documented in this encounter Care Teams Mobile Home Technician Relationship Specialty Start Date End Date Grisel Castillo DO PCP - General Internal Medicine 08/02/16 03/22/21 Jimenez Hernandez DO PCP - General Internal Medicine 03/23/21 1 Gretchen, Desmond PCP - General Internal Medicine 06/28/21 documented as of this encounter
--- OUTSIDE RECORDS SUMMARY | 2025-06-17 13:08 | XMS_ITS | Encounter Summary ---
Author Organization [facility] Address [address] [place] [address] Care Team Providers Care Sterile Processing Technologist Name Role Phone Grisel Castillo DO Primary Care Pro vider Unavailable Jimenez Hernandez DO Primary Care Provider Patricia [facility], Pcp Primary Care Provider Unavailabl e Reason for Visit * Reason Comments E-prescribe Rx Request Encounter Details Date Type Department Care Team Description 02/21/2019 Refill Adult Medicine [address] [address] Denise Roman PA-C E-prescribe Rx Request Social [...] encounter Miscellaneous Notes * Telephone Encounter - Tawanna Fiore M.A. - 02/21/2019 9:56 AM EDT Lab Results Component Value Date NA 136 07/17/2018 K 4.2 07/17/2018 CO2 26.1 07/17/2018 CL 95 07/17/2018 BUN 9 07/17/2018 CREAT 0.8 07/17/2018 CA 9.7 07/17/2018 GFR > 60 07/17/2018 * Telephone Encounter - Jeremy Zavaleta - 02/21/2019 8:53 AM EDT MAIL ORDER REFILL REQUEST When was the patients last visit with PCP?: 04/17/18 When was the patients last visit in Medicine: 11/19/18 Does the patient have a future appointment? Yes 02/26/19 Is the doctor here today?: YES Is the med requested on the list?:Yes What mail order pharmacy does patient have?: [facility] Let the patient know that if their pharmacy is participating we will automatically route this mail order refill to them via their mail order pharmacy. Is the following the patients current home address: [address] [place] [id number] yes If their mail order pharmacy is NOT a participating pharmacy we can: Is this the patients current medical insurance carrier? Payor: [employer] FFS / Plan: [employer] ALLIANCE / Product Type: MEDICAID RISK YES * Telephone Encounter - Bridget Jim - 02/21/2019 8:46 AM EDT Patient would like script to be: E-PRESCRIBED/FAXED TO PHARMACY WHEN WAS THE PATIENT'S LAST APPOINTMENT IN ADULT MEDICINE? 11/19/18 WHEN WAS THE LAST TIME THE PATIENT SAW THEIR PCP? 04/17/18 Does patient have an upcoming appointment? Yes 02/26/19 (THE MEDICATION REQUESTED IS ON THE MED LIST ABOVE) All of the medications requested were on the CURRENT MEDS list Did you check the Pharmacy information above?: YES Patient wants: 90 -day supply Is this a mail order prescription request ? YES If the refill is from a FAXED refill request what is the RX # listed on the fax? N/A Patients current insurance carrier is: Payor: [employer] FFS / Plan: [employer] [place] / Product Type: MEDICAID RISK documented in this encounter Plan of Treatment Not on file documented as of this encounter Visit Diagnoses Not on filedocumented in this encounter Care Teams Sterile Processing Technologist Relationship Specialty Start Date End Date Grisel Castillo DO PCP - General Internal Medicine 08/02/16 03/22/21 Jimenez Hernandez DO PCP - General Internal Medicine 03/23/21 1 [facility], Pcp PCP - General Internal Medicine 06/28/21 documented as of this encounter
--- OUTSIDE RECORDS SUMMARY | 2025-06-17 13:08 | XMS_ITS | Encounter Summary ---
Author Organization [facility] Address [address] [place] [address] Care Team Providers Care Risk Management Specialist Name Role Phone Grisel Castillo DO Primary Care Pro vider Unavailable Jimenez Hernandez DO Primary Care Provider Patricia [facility], Pcp Primary Care Provider Unavailabl e Reason for Visit * Reason Comments E-prescribe Rx Request Encounter Details Date Type Department Care Team Description 01/31/2019 Refill Adult Medicine [address] [address] Denise Roman PA-C E-prescribe Rx Request Social [...] encounter Miscellaneous Notes * Telephone Encounter - Sarah Vick M.A. - 02/01/2019 8:38 AM EDT Lab Results Component Value Date NA 136 07/17/2018 K 4.2 07/17/2018 CO2 26.1 07/17/2018 CL 95 07/17/2018 BUN 9 07/17/2018 CREAT 0.8 07/17/2018 CA 9.7 07/17/2018 GFR > 60 07/17/2018 Pending ov with pcp 02/26/19 * Telephone Encounter - Neela Kris - 02/01/2019 8:36 AM EDT Patient would like script to [...] this a mail order prescription request ? NO If the refill is from a FAXED refill request what is the RX # listed on the fax? N/A Patients current insurance carrier is: Payor: [employer] FFS / Plan: [employer] [facility] ALLIANCE / Product Type: MEDICAID RISK documented in this encounter Plan of Treatment Not on file documented as of this encounter Visit Diagnoses Diagnosis Essential hypertension Unspecified essential hypertension documented in this encounter Care Teams Risk Management Specialist Relationship Specialty Start Date End Date Grisel Castillo DO PCP - General Internal Medicine 08/02/16 03/22/21 Jimenez Hernandez DO PCP - General Internal Medicine 03/23/21 1 [facility], Pcp PCP - General Internal Medicine 06/28/21 documented as of this encounter
--- OUTSIDE RECORDS SUMMARY | 2025-06-17 13:08 | XMS_ITS | Encounter Summary ---
Author Organization [facility] Address [address] [place] [address] Care Team Providers Care Windows Server Engineer Name Role Phone Grisel Castillo DO Primary Care Pro vider Jimenez Dao DO Primary Care Provider Patricia [facility], Pcp Primary Care Provider Unavailabl e Reason for Visit * Reason Onset Date Comments Provider Call Back 09/09/2019 Encounter Details Date Type Department Care Team Description 09/09/2019 Telephone Adult Medicine [address] [id number] Grisel Castillo DO Provider Call Back Social History Tobacco Use Types Packs/Day Years Used Date Smoking Tobacco: Every Day Cigarettes 0.5 30 Started: [birth year]/29/1983 Smokeless Tobacco: Current Comments:started @ age 20 Alcohol Use Standard Drinks/Week Comments No 0 (1 standard drink = 0.6 oz pur e alcohol) quit 6 weeks Sex Assigned at Date Recorded Not on file documented as of this encounter Miscellaneous Notes * Telephone Encounter - Dinorah Ariza RN - 09/13/2019 1:12 PM EST Patient informed of reply from Dr Grisel Klein. States she only needs assistance with laundry. The laundry facilities are at the far end of her apartment complex and she is not able tomanage due to back pain. She does not have personal care needs Patient advised she can discuss with provider at upcoming appointment on 10/01 Sent to provider for consideration * Telephone Encounter - Josephine Wheat R.N. - 09/11/2019 2:54 PM EST I left a message for the patient to return my call. * Telephone Encounter - Grisel Youssef DO - 09/11/2019 12:58 PM EST I do not know if she would meet their criteria and qualify for prior Auth for [employer] * Telephone Encounter - Josephine Wheat R.N. - 09/09/2019 3:53 PM EST Pt was declined services by [facility], they did not feel she qualified, she was told by [employer] that if dr Grisel Klein feels she needs a HARDWARE DESIGN ENGINEER to assist her , the doctor can fill out a PA for [employer] services and she will get the help she feels she needs * Telephone Encounter - Sarah Vick M.A. - 09/09/2019 3:47 PM EST Please advise pt on being evaluated for HARDWARE DESIGN ENGINEER services * Telephone Encounter - Neela Donahue - 09/09/2019 3:42 PM EST Caller requesting call back from provider: Is the caller the patient? YES If caller is not the patient, what is the callers name? N/A Callers relationship to patient? N/A If person calling is not the patient themselves, is there a verbal release in FYI or permanent comments for this person: YES Reason for call back: Pt states that she is having issues getting a wheelchair van driver into her home and would like to discuss. She needs one due to her back injury Caller offered to speak with the nurse for assistance: NO Response: Patient offered to speak with nurse for assistance and patient agreed. Message forwarded to nurse. documented in this encounter Plan of Treatment Not on file documented as of this encounter Visit Diagnoses Not on filedocumented in this encounter Care Teams Windows Server Engineer Relationship Specialty Start Date End Date Grisel Castillo DO PCP - General Internal Medicine 08/02/16 03/22/21 Jimenez Hernandez DO PCP - General Internal Medicine 03/23/[address] [place] [address], Pcp PCP - General Internal Medicine 06/28/21 documented as of this encounter
--- OUTSIDE RECORDS SUMMARY | 2025-06-17 13:08 | XMS_ITS | Clinical Summary ---
Author Organization [facility] Address [address] [place] [address] Care Team Providers Care Security Incident Response Specialist Name Role Phone Unavailable Primary Care Provider Unavailabl e Surgical History Surgery Date Site/Laterality Comments APPENDECTOMY PROCEDURE: [facility] APPENDECTOMY CERVICAL BIOPSY W/ LOOP ELECTRODE EXCISION PROCEDURE: HISTORICAL CONE BIOPSY TUBAL LIGATION PROCEDURE: HISTORICAL TUBAL LIGATION OTHER SURGICAL HISTORY 05.08.14 PROCEDURE: MAMMOGRAM MYOMECTOMY 2010 PROCEDURE: VA LAPS MYOMECTOMY EXC 1-4 MYOMAS 250 GM/<; COMMENT: Horta- laparoscopic HYSTEROSCOPY 11/03/2017 PROCEDURE: VA HYSTEROSCOPY BX ENDOMETRIUM&/POLYPC W/WO D&C BREAST BIOPSY 2000 Left PROCEDURE: BX BREAST; PERC NEEDLE CORE W/IMAG GUID; COMMENT: neg x 3 BREAST SURGERY 2000 Left PROCEDURE: VA UNLISTED PROCEDURE BREAST; COMMENT: 3 exc bx [...] Date Smoking Tobacco: Every Day Cigarettes 0.5 39.5 Started: [birth year]/29/1983 Smokeless Tobacco: Current Alcohol Use [...] Breast Cancer Screening 03/20/2021 03/20/20 19, 04/05/2017 Depression Screening 10/16/2024 COVID-19 Vaccine (2023-2 5 season) 2025 Influenza Vaccine (#1) 2025 HIB Vaccines Aged [...]
--- OUTSIDE RECORDS SUMMARY | 2025-06-17 13:08 | XMS_ITS | Encounter Summary ---
Author Organization [facility] Address [address] [place] [address] Care Team Providers Care Ed Physicians Name Role Phone Grisel Castillo DO Primary Care Pro vider Unavailable Jimenez Hernandez DO Primary Care Provider Patricia [facility], Pcp Primary Care Provider Unavailabl e Reason for Visit * Reason Onset Date Comments medication problems 11/25/2020 Encounter Details Date Type Department Care Team Description 11/25/2020 Telephone Allergy [place] [address] [place] [address] Louise King PA-C medication problems Social History Tobacco Use Types Packs/Day Years Used Date Smoking Tobacco: Every Day Cigarettes 0.5 30 Started: 11/29/1985 Smokeless Tobacco: Current Comments:started @ age 20 Alcohol Use Standard Drinks/Week Comments Yes 0 (1 standard drink = 0.6 oz pur e alcohol) occasional Sex Assigned at Date Recorded Not on file documented as of this encounter Miscellaneous Notes * Telephone Encounter - Monica Rich - 11/26/2020 10:46 AM EST Left message to call and schedule * Telephone Encounter - Lauryn Hernández LPN - 11/25/2020 4:01 PM EST I called and left a message on the machine/voicemail, asking them to call us back to schedule a telehealth. Phone number provided. Medication info endorsed. BSR- please schedule a telehealth with Louise next week when she calls back. Thank you. * Telephone Encounter - Trice Prasad MD - 11/25/2020 3:26 PM EST I will send Zyrtec 30 day script and please see if she will accept a telehealth with Louise next week Monday morning * Telephone Encounter - Lauryn Hernández LPN - 11/25/2020 3:17 PM EST Patient refused in person visit due to COVID. She is willing to come in the summer time when COVID levels are down. She did agree to get labs done. She felt the Zyrtec she was on before worked betterthan the Xyzol, but still not great. She is asking for a script for either something different or the zyrtec again. * Telephone Encounter - Trice Prasad MD - 11/25/2020 3:04 PM EST Yes please in person * Telephone Encounter - Lauryn Hernández LPN - 11/25/2020 2:58 PM EST ROGER: 07/06/20 telehealth F/U: TBD based on tryptase level. Labs were never done. Please advise. * Telephone Encounter - Kaylen Barone - 11/25/2020 2:39 PM EST Patient is reporting that levocetirizine is not helping at all, please advise if alternative can berx documented in this encounter Plan of Treatment Not on file documented as of this encounter Visit Diagnoses Not on filedocumented in this encounter Care Teams Ed Physicians Relationship Specialty Start Date End Date Grisel Castillo DO PCP - General Internal Medicine 08/02/16 03/22/21 Jimenez Hernandez DO PCP - General Internal Medicine 03/23/21 1 [facility], Pcp PCP - General Internal Medicine 06/28/21 documented as of this encounter
--- OUTSIDE RECORDS SUMMARY | 2025-06-17 13:08 | XMS_ITS | Encounter Summary ---
Author Organization [facility] Address [address] [place] [address] Care Team Providers Care Cigarette Machine Operator Name Role Phone Community, Pcp Primary Care Provider Unavailabl e Reason for Visit * Reason Comments E-prescribe Rx Request Encounter Details Date Type Department Care Team Description 07/13/2021 Refill Adult Medicine [address] [address] Grisel Castillo DO E-prescribe Rx Request Social [...] encounter Miscellaneous Notes * Telephone Encounter - Tasha De La Cruz - 07/14/2021 8:50 AM EDT COMMUNITY PCP - DISMISSED/DISCHARGED FROM PRACTICE. documented in this encounter Plan of Treatment Not on file documented as of this encounter Visit Diagnoses Diagnosis Essential hypertension Unspecified essential hypertension documented in this encounter Care Teams Cigarette Machine Operator Relationship Specialty Start Date End Date Community, Pcp PCP - General Internal Medicine 06/28/21 documented as of this encounter
--- OUTSIDE RECORDS SUMMARY | 2025-06-17 13:08 | XMS_ITS | Encounter Summary ---
Author Organization [facility] Address [address] [place] [address] Care Team Providers Care Lab Systems Analyst Name Role Phone Grisel Castillo DO Primary Care Pro vider Unavailable Rod Pires MD Primary Care Provide r Unavailable Grisel Castillo DO Primary Care Pro vider Unavailable Jimenez Hernandez DO Primary Care Provider Patricia [facility], Pcp Primary Care Provider Unavailabl e Encounter Details Date Type Department Care Team Description 06/01/2016 Orders Only Adult Medicine [address] [address] Grisel Castillo DO Social History Tobacco Use [...] on filedocumented in this encounter Care Teams Lab Systems Analyst Relationship Specialty Start Date End Date Grisel Castillo DO PCP - General Internal Medicine 10/30/15 07/19/16 Rod Pires MD PCP - General Internal Medicine 07/20/16 1 KraGrisel Greco DO PCP - General Internal Medicine 08/02/16 03/22/21 Jimenez Hernandez DO PCP - General Internal Medicine 03/23/21 1 [facility], Pcp PCP - General Internal Medicine 06/28/21 documented as of this encounter
--- OUTSIDE RECORDS SUMMARY | 2025-06-17 13:08 | XMS_ITS | Encounter Summary ---
Author Organization [facility] Address [address] [place] [address] Care Team Providers Care Shoe Puller Name Role Phone Keren Casas MD Primary Care Provider Grisel Castillo DO Primary Care Pro vider Unavailable Rod Pires MD Primary Care Provide r Unavailable Grisel Castillo DO Primary Care Pro vider Unavailable Jimenez Hernandez DO Primary Care Provider [facility] Pcp Primary Care Provider Unavailabl e Reason for Visit * Reason Onset Date Comments REFERRAL 10/21/2015 Encounter Details Date Type Department Care Team Description 10/21/2015 Telephone Adult Medicine [address] [address] Keren Casas MD [address] [place] [address] [id number] REFERRAL Social History Tobacco Use Types Packs/Day Years Used Date Smoking Tobacco: Every Day Cigarettes 1 Smokeless Tobacco: Never Comments:started @ age 20 Alcohol Use Standard Drinks/Week Comments Yes 0 (1 standard drink = 0.6 oz pur e alcohol) at least 2 glasses wine daily Sex Assigned at Date Recorded Not on file documented as of this encounter Miscellaneous Notes * Telephone Encounter - Eve Kevin - 10/21/2015 3:04 PM EST Did you verify this is patients current insurance? YES Payor[place] / Plan: MEDICAID PCC / Product Type: MEDICAID [id number] Effective 07/16/09: [employer] will not retro referral requests over 90 days. If request is for this please instruct patient to call the 800# on their insurance card to appeal. Do not submit a request. Referrals cannot be processed if the insurance is not accurate. If the insurance listed above in red is NO BILLING INFORMATION FOUND FOR THIS ENCOUTNER The patients correct insurance must be obtained and registered in [facility] or their referral can not be processed. Who is calling to request this referral? Lakesha If the caller is not the patient, what is their name? N/A FIRST and LAST NAME of SPECIALIST PATIENT is seeing: [facility] pain mangement Npi [phone] What specialty is this? Pain mangement DIAGNOSIS Patient is being seen for (Not a body part or a procedure): Post herpetic neuralgia Have you seen this SPECIALIST for this PROBLEM/DX before?NO If YES, when: Have you checked REVIEW or the APPT DESK to see if this referral has already been done or has visits left? NO Who referred the patient to this specialty? Is this visit:Initial Visit Address of Specialist: [address] [place] [address] Phone # of Specialist: Fax #: (if applicable): Does patient have an appointment scheduled?: YES Date of appointment- (including a retro-request): 10/27/2015 Is this appointment related to: Not MVA, WC or Surgery related documented in this encounter Plan of Treatment Not on file documented as of this encounter Visit Diagnoses Not on filedocumented in this encounter Care Teams Shoe Puller Relationship Specialty Start Date End Date Keren Casas MD [address] [place] [address] PCP - General Internal Medicine 09/09/15 10/29/15 Grisel Castillo DO [address] [place] [address] PCP - General Internal Medicine 10/30/15 07/19/16 Rod Pires MD [address] [place] [address] PCP - General Internal Medicine 07/20/16 08/01/16 Grisel Castillo, [address] [address] PCP - General Internal Medicine 08/02/16 03/22/21 Jimenez Hernandez DO [address] [place] [address] PCP - General Internal Medicine 03/23/21 06/27/21 [facility], Pcp [address] [place] [address] PCP - General Internal Medicine 06/28/21 documented as of this encounter
--- OUTSIDE RECORDS SUMMARY | 2025-06-17 13:08 | XMS_ITS | Encounter Summary ---
Author Organization [facility] Address [address] [place] [address] Care Team Providers Care Laminator Preforms Name Role Phone Grisel Castillo DO Primary Care Pro vider Unavailable Jimenez Hernandez DO Primary Care Provider Patricia Godinez, Pcp Primary Care Provider Unavailabl e Encounter Details Date Type Department Care Team Description 11/20/2018 [facility] Medical Records [address] [place] [id number] Abstract, Provider Social History Tobacco Use Types [...] on filedocumented in this encounter Care Teams Laminator Preforms Relationship Specialty Start Date End Date Grisel Castillo DO PCP - General Internal Medicine 08/02/16 03/22/21 Jimenez Hernandez DO PCP - General Internal Medicine 03/23/21 1 [facility], Pcp PCP - General Internal Medicine 06/28/21 documented as of this encounter
--- OUTSIDE RECORDS SUMMARY | 2025-06-17 13:08 | XMS_ITS | Encounter Summary ---
Author Organization [facility] Address [address] [place] [address] Care Team Providers Care Pharmacy Ancillary Name Role Phone Grisel Castillo DO Primary Care Pro vider Unavailable Rod Pires MD Primary Care Provide r Unavailable Grisel Castillo DO Primary Care Pro vider Unavailable Jimenez Hernandez DO Primary Care Provider [facility], Pcp Primary Care Provider Unavailabl e Reason for Visit * Reason Onset Date Comments medication problems 05/31/2016 Encounter Details Date Type Department Care Team Description 05/31/2016 Telephone Adult Medicine [address] [address] Grisel Castillo DO medication problems Social History Tobacco Use Types [...] encounter Miscellaneous Notes * Telephone Encounter - Grisel Youssef DO - 06/01/2016 2:52 PM EDT Ordered gabapentin 300 mg tablets instead * Telephone Encounter - Sarah Vick M.A. - 05/31/2016 4:07 PM EDT Please advise if pt is having trouble swallowing Gabapentin 600mg, could she be rx'd gabapentin 300mg capsules 2 po qd? If so, new rx needs to be sent * Telephone Encounter - Kacy Jang - 05/31/2016 3:42 PM EDT What is the name of the medication patient is having a problem with?: gabapentin 600mg What is the problem?: very difficult to swallow the pill. Pharmacy advised that 300 mg capsule is available, but new script needed. Is the patient calling about the problem? YES If the patient is not the caller who is? Is this a NEW medication?: YES How long has the patient been taking this medication? Who prescribed this medication for the patient? Dr delong Who is patients PCP?: same Payor: [place] / Plan: MEDICAID PCC / Product Type: MEDICAID [id number] documented in this encounter Plan of Treatment Not on file documented as of this encounter Visit Diagnoses Not on filedocumented in this encounter Care Teams Pharmacy Ancillary Relationship Specialty Start Date End Date Grisel Castillo DO PCP - General Internal Medicine 10/30/15 07/19/16 Rod Pires MD PCP - General Internal Medicine 07/20/16 1 Grisel Castillo DO PCP - General Internal Medicine 08/02/16 03/22/21 Jimenez Hernandez DO PCP - General Internal Medicine 03/23/21 1 [facility], [facility] PCP - General Internal Medicine 06/28/21 documented as of this encounter
--- OUTSIDE RECORDS SUMMARY | 2025-06-17 13:08 | XMS_ITS | Encounter Summary ---
Author Organization [facility] Address [address] [place] [address] Care Team Providers Care Community Case Manager Name Role Phone Jimenez Hernandez DO Primary Care Provider [facility], Pcp Primary Care Provider Unavailabl e Reason for Visit * Reason Comments E-prescribe Rx Request Encounter Details Date Type Department Care Team Description 04/28/2021 Refill Adult Medicine [address] [address] Grisel Castillo DO E-prescribe Rx Request Social [...] Telephone Encounter - Sarah Vick M.A. - 04/28/2021 12:26 PM EDT Lab Results Component Value Date NA 139 01/05/2021 K 3.4 01/05/2021 CO2 28 01/05/2021 CL 101 01/05/2021 BUN 13 01/05/2021 CREAT 0.58 01/05/2021 GLU 96 01/05/2021 CA 9.3 01/05/2021 GFR > 60 01/05/[address] Stuart 03/22/[address] Hernandez 06/25/21 * Telephone Encounter - Tasha De La Cruz - 04/28/2021 8:16 AM EDT Patient would like script to be: E-PRESCRIBED/FAXED TO PHARMACY WHEN WAS THE PATIENT'S LAST APPOINTMENT IN ADULT MEDICINE? 03/22/2021 WHEN WAS THE LAST TIME THE PATIENT SAW THEIR PCP? Not seen by new PCP Does patient have an upcoming appointment? Yes 2021 (THE MEDICATION REQUESTED IS ON THE MED [...] N/A Patients current insurance carrier is: Payor: [email or web address] FFS / Plan: [employer] [facility] [employer] / Product Type: MEDICAID RISK documented in this encounter Plan of Treatment Not on file documented as of this encounter Visit Diagnoses Not on filedocumented in this encounter Care Teams Community Case Manager Relationship Specialty Start Date End Date Jimenez Hernandez DO PCP - General Internal Medicine 03/23/21 1 [facility], Pcp PCP - General Internal Medicine 06/28/21 documented as of this encounter
--- OUTSIDE RECORDS SUMMARY | 2025-06-17 13:08 | XMS_ITS | Encounter Summary ---
Author Organization [facility] Address [address] [place] [address] Care Team Providers Care Computer Science Teacher Name Role Phone Jimenez Hernandez DO Primary Care Provider [facility], Pcp Primary Care Provider Unavailabl e Reason for Visit * Reason Onset Date Comments APPOINTMENT 05/20/2021 Encounter Details Date Type Department Care Team Description 05/20/2021 Telephone Adult Medicine [address] [address] Jimenez Hernandez DO APPOINTMENT Social History Tobacco Use Types Packs/Day Years Used Date Smoking Tobacco: Every Day Cigarettes 0.5 30 Started: 11/29/1985 Smokeless Tobacco: Current Comments:started @ age 20 Alcohol Use Standard Drinks/Week Comments Yes 0 (1 standard drink = 0.6 oz pur e alcohol) occasional Sex Assigned at Date Recorded Not on file documented as of this encounter Miscellaneous Notes * Telephone Encounter - Prema Noyola L.P.N. - 05/21/2021 8:57 AM EDT Left message for pt to call me back. * Telephone Encounter - Bridget Jim - 05/20/2021 4:08 PM EDT Follow up appointment not available. Please call patient to book-no open NON PUBLIC SLOTS. Appointment needed patient requesting to see pcp RASHAD, explain no appointments available until September and she refused 8:30 appt documented in this encounter Plan of Treatment Not on file documented as of this encounter Visit Diagnoses Not on filedocumented in this encounter Care Teams Computer Science Teacher Relationship Specialty Start Date End Date Jimenez Hernandez DO PCP - General Internal Medicine 03/23/21 1 [facility], Pcp PCP - General Internal Medicine 06/28/21 documented as of this encounter
--- OUTSIDE RECORDS SUMMARY | 2025-06-17 13:08 | XMS_ITS | Encounter Summary ---
Author Organization [facility] Address [address] [place] [address] Care Team Providers Care Production Maintenance Technician Name Role Phone Grisel Castillo DO Primary Care Pro vider Unavailable Jimenez Hernandez DO Primary Care Provider Patricia Godinez Pcp Primary Care Provider Unavailabl e Encounter Details Date Type Department Care Team Description 08/05/2019 Controlled Substance Plan Medical Records [address] [place] [address] Abstract, Provider Social History Tobacco Use Types [...] on filedocumented in this encounter Care Teams Production Maintenance Technician Relationship Specialty Start Date End Date Grisel Castillo DO PCP - General Internal Medicine 08/02/16 03/22/21 Jimenez Hernandez DO PCP - General Internal Medicine 03/23/21 Desmond Ward PCP - General Internal Medicine 06/28/21 documented as of this encounter
--- OUTSIDE RECORDS SUMMARY | 2025-06-17 13:08 | XMS_ITS | Clinical Summary ---
Author Organization [facility] Address [address] [place] [address] Care Team Providers Care Plater Apprentice Name Role Phone Community, Pcp Primary Care Provider Unavailabl e Allergies Active Allergy Reactions Severity Noted Date Comments Bee Stings Swelling/Edema 09/18/2015 Throat tightness Fish Anaphylaxis High 09/18/2015 Iv Contrast Dye 12/15/2016 Severe vomiting Lyrica 09/27/2015 Gi upset Penicillin V 09/27/2015 GI upset Phenazo 09/27/2015 Unknown reaction Medications Medication Sig Dispensed Refills Start Date End Date Status betamethasone dipropionate (DIPROLENE) 0.05 % cream Apply small amount BID x 2 weeks 60 g 0 06/04/2020 Active EPINEPHrine (EPIPEN 2-LATA) 0.3 MG/0.3ML Solution Auto-injector Inject 1 Device as directed as needed (anaphylaxis). Use as directed 2 Each 3 07/13/2020 Active vitamin D (ERGOCALCIFEROL) 1.25 MG (54954 UT) capsule TAKE 1 CAPSULE WEEKLY 4 Cap 3 12/28/2020 Active carbamide peroxide (DEBROX) 6.5 % otic solution Place 5 Drops into both ears 2 times daily for 10 days. Tilt head so ear to be treated points towards the ceiling. Hold medication in ear using part of a cotton ball. 15 mL 0 01/05/2021 Active Magnesium 200 MG Tab Take 1 Tab by mouth 2 times daily. 60 Tab 5 01/13/2021 Active olmesartan (BENICAR) 20 MG tablet Take 1 tablet by mouth daily for 360 days. 30 tablet 3 03/22/2021 Active Albuterol Sulfate (ProAir RespiClick) 108 (90 Base) MCG/ACT AEROSOL POWDER,BREATH ACTIVATED Inhale 1 Inhaler into the lungs every 4 hours as needed (cough/wheeze/sob ). 1 Each 0 03/31/2021 Active atorvastatin (LIPITOR) 20 MG tablet Take 1 tablet by mouth daily. 90 tablet 1 03/31/2021 Active clonidine (CATAPRES) 0.1 MG tabletIndications:E ssential hypertension Take 1 tablet by mouth every evening. 90 tablet 1 03/31/2021 Active gabapentin (NEURONTIN) 300 MG capsule Take 3 capsules by mouth three times daily. 270 capsule 5 03/31/2021 Active lorazepam (ATIVAN) 0.5 MG tablet Take 1 tablet by mouth 2 times daily as needed for Anxiety. 56 tablet 0 03/31/2021 Active tramadol (ULTRAM) 50 MG tablet Take 1 tablet by mouth 2 times daily as needed for Pain. 56 tablet 0 03/31/2021 Active triamterene-hydroch lorothiazide (MAXZIDE-25) 37.5-25 MG per tabletIndications:E ssential hypertension Take 1 tablet by mouth daily. 90 tablet 1 03/31/2021 Active furosemide (LASIX) 20 MG tablet TAKE 1 TABLET EVERY DAY 90 tablet 0 04/28/2021 Active olopatadine (PATANOL) 0.1 % ophthalmic solution Place 1 Drop into both eyes 2 times daily as needed for Allergies. 5 mL 5 06/03/2021 Active desloratadine (Clarinex) 5 MG tablet Take 1 tablet by mouth daily for 360 days. 30 tablet 5 06/03/2021 Active Triamcinolone Acetonide (Nasacort Allergy 24HR) 55 MCG/ACT Aerosol 2 Sprays by Nasal route daily. 30 mL 5 06/03/2021 Active azelastine (ASTELIN) 0.1 % nasal spray 2 Sprays by Each Nare route 2 times daily. 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 B12 deficiency 07/04/2016 Alcoholic fatty liver 04/16/2016 Elevated ferritin 04/16/2016 Overview: Secondary to etoh abuse Hemochromatosis w/u neg Macrocytosis without anemia 04/16/2016 PTSD (post-traumatic stress disorder) Hyperlipidemia 09/27/2015 Allergic rhinitis 09/27/2015 Essential hypertension 09/18/2015 Anxiety 09/18/2015 Post herpetic neuralgia 09/18/2015 Resolved Problems Problem Noted Date Resolved Date Fatty liver 09/27/2015 07/21/2020 Family History Medical History Relation Name Comments CAD Father Stroke Mother CA Breast Other mat great aunt Relation Name Status [...] Assigned at Date Recorded Not on file Last Filed Vital Signs Vital Sign Reading Time Taken Comments Blood Pressure 129/78 01/05/2021 3:03 PM EDT Pulse 82 01/05/2021 3:03 PM EDT Temperature 36.5 C (97.7 F) 01/05/2021 3:03 PM EDT Respiratory Rate 18 01/05/2021 3:03 PM EDT Oxygen Saturation 97% 04/16/2016 10: 51 AM EDT Inhaled Oxygen Concentration - - Weight 106.7 kg (235 lb 3.2 oz) 01/05/2021 3:03 PM EDT Height 162.6 cm (5' 4 ) 01/05/2021 3:03 PM EDT Body Mass Index 40.37 01/05/2021 3:03 PM EDT Plan of Treatment Health Maintenance Due Date Last Done Comments Covid-19 Vaccine (#1) 1967 TOBACCO CHECK/ADVISE 1985 DTAP/TDAP/TD (1 - Tdap) 1986 PNEUMOCOCCAL VACCINE FOR HIG H RISK PATIENTS (#1) 1986 BASELINE HEALTH EXAM 40-64 2007 COLON CANCER SCREENING 2017 SHINGLES VACCINE (1 of 2) 2017 CERVICAL CANCER SCREENING 07/20/2019 07/20/2016 MAMMOGRAM 03/20/2020 03/20/2019, 06/10/2016, 03/28/2016, Additional history exists BMI CHECK/ADVISE 10/16/2024 03/22/2021, , 09/28/2020, Additional history exists DEPRESSION SCREENING/FOLLOWUP 10/16/2024 04/26/2018, 06/07/2016 SOCIAL NEEDS SCREENING 10/16/2024 INFLUENZA (#1) 2025 08/31/2016 (Refused) CHOLESTEROL SCREENING 01/05/2026 01/05/2021 , 06/30/2020, 02/26/2019, Additional history exists Care Teams Plater Apprentice Relationship Specialty Start Date End Date Community, Pcp PCP - General Internal Medicine 06/28/21
--- OUTSIDE RECORDS SUMMARY | 2025-06-17 13:08 | XMS_ITS | Encounter Summary ---
Author Organization [facility] Address [address] [place] [address] Care Team Providers Care Personalized Living Manager Name Role Phone Grisel Castillo DO Primary Care Pro vider Unavailable Jimenez Hernandez DO Primary Care Provider Patricia [facility], Pcp Primary Care Provider Unavailabl e Reason for Visit * Reason Onset Date Comments Abnormal Mammogram 09/29/2020 Encounter Details Date Type Department Care Team Description 09/29/2020 Telephone Radiology - [address] [address] Radiology, Authorizing Abnormal Mammogram Social History Tobacco Use Types Packs/Day Years [...] or suspected to have Coronavirus / COVID-19? No / Unsure 09/28/2020 2:28 PM EST documented as of this encounter Miscellaneous Notes * Telephone Encounter - Grisel Youssef DO - 09/30/2020 1:24 PM EST Left lower breast below areola * Telephone Encounter - Caroline Covarrubias - 09/29/2020 1:[address] Simmons placed an order for a diagnostic mammogram and u/s which the patient is scheduled for Monday10/02/20. In reading her notes, I don't see any description of what she is feeling, Which breast , which quadrant, etc. Could you please give us more information on what we are looking for? Thank you! Caroline Covarrubias, Radiology Coordinator documented in this encounter Plan of Treatment Not on file documented as of this encounter Visit Diagnoses Not on filedocumented in this encounter Care Teams Personalized Living Manager Relationship Specialty Start Date End Date Grisel Castillo DO PCP - General Internal Medicine 08/02/16 03/22/21 Jimenez Hernandez DO PCP - General Internal Medicine 03/23/[address] [place] [address], Pcp PCP - General Internal Medicine 06/28/21 documented as of this encounter
--- OUTSIDE RECORDS SUMMARY | 2025-06-17 13:08 | XMS_ITS | Encounter Summary ---
Author Organization [facility] Address [address] [place] [address] Care Team Providers Care Dye Weigher Name Role Phone Grisel Castillo DO Primary Care Pro vider Unavailable Jimenez Hernandez DO Primary Care Provider Patricia Godinez, Pcp Primary Care Provider Unavailabl e Encounter Details Date Type Department Care Team Description 02/03/2017 Orders Only Adult Medicine [address] [address] Grisel Castillo DO Social History Tobacco Use [...] on filedocumented in this encounter Care Teams Dye Weigher Relationship Specialty Start Date End Date Grisel Castillo DO PCP - General Internal Medicine 08/02/16 03/22/21 Jimenez Hernandez DO PCP - General Internal Medicine 03/23/21 1 Gretchen, Pcp PCP - General Internal Medicine 06/28/21 documented as of this encounter
--- OUTSIDE RECORDS SUMMARY | 2025-06-17 13:08 | XMS_ITS | Encounter Summary ---
Author Organization [facility] Address [address] [place] [address] Care Team Providers Care Manager Casino Name Role Phone Grisel Castillo DO Primary Care Pro vider Unavailable Jimenez Hernandez DO Primary Care Provider Patricia [facility], Pcp Primary Care Provider Unavailabl e Reason for Visit * Reason Onset Date Comments CSC Pill Count 08/22/2019 Encounter Details Date Type Department Care Team Description 08/22/2019 Telephone Adult Medicine [address] [address] Grisel Castillo DO CSC Pill Count Social History Tobacco Use Types Packs/Day Years [...] Telephone Encounter - Grisel Youssef DO - 08/22/2019 10:36 AM EST It wouldn't be unusual for her to be out of benzo given when it was prescribed. Dont' think pill count will be helpful * Telephone Encounter - Sarah Vick M.A. - 08/22/2019 8:27 AM EST Please review Jayna Hutchins request to bring pt in for a pill count. Last rx for Lorazepam was 06/11/19 Last UDS 07/09/19 was negative for Benzodiazepines. It has been 10 weeks since rx for Lorazepam was given, should pt be called in for a pill count for a med that was last given 10 weeks ago? documented in this encounter Plan of Treatment Not on file documented as of this encounter Visit Diagnoses Not on filedocumented in this encounter Care Teams Manager Casino Relationship Specialty Start Date End Date Grisel Castillo DO PCP - General Internal Medicine 08/02/16 03/22/21 Jimenez Hernandez DO PCP - General Internal Medicine 03/23/[address] [place] [address], Pcp PCP - General Internal Medicine 06/28/21 documented as of this encounter
--- OUTSIDE RECORDS SUMMARY | 2025-06-17 13:08 | XMS_ITS | Encounter Summary ---
Author Organization [facility] Address [address] [place] [address] Care Team Providers Care Silk Blocker Name Role Phone Grisel Castillo DO Primary Care Pro vider Unavailable Rod Pires MD Primary Care Provide r Unavailable Grisel Castillo DO Primary Care Pro vider Unavailable Jimenez Hernandez DO Primary Care Provider [facility], Pcp Primary Care Provider Unavailabl e Encounter Details Date Type Department Care Team Description 02/10/2016 Transfer Records Medical Records [address] [place] [id number] Abstract, Provider Social History Tobacco Use Types [...] on filedocumented in this encounter Care Teams Silk Blocker Relationship Specialty Start Date End Date Grisel Castillo DO PCP - General Internal Medicine 10/30/15 07/19/16 Rod Pires MD PCP - General Internal Medicine 07/20/16 1 Grisel Castillo DO PCP - General Internal Medicine 08/02/16 03/22/21 Jimenez Hernandez DO PCP - General Internal Medicine 03/23/21 1 [facility], Pcp PCP - General Internal Medicine 06/28/21 documented as of this encounter
--- OUTSIDE RECORDS SUMMARY | 2025-06-17 13:08 | XMS_ITS | Encounter Summary ---
Author Organization [facility] Address [address] [place] [address] Care Team Providers Care Procurement Specialist Name Role Phone Grisel Castillo DO Primary Care Pro vider Unavailable Jimenez Hernandez DO Primary Care Provider Patricia Godinez, Pcp Primary Care Provider Unavailabl e Encounter Details Date Type Department Care Team Description 07/11/2019 Orders Only Adult Medicine [address] [address] Grisel Castillo DO Social History Tobacco Use [...] on filedocumented in this encounter Care Teams Procurement Specialist Relationship Specialty Start Date End Date Grisel Castillo DO PCP - General Internal Medicine 08/02/16 03/22/21 Jimenez Hernandez DO PCP - General Internal Medicine 03/23/21 1 Gretchen, Pcp PCP - General Internal Medicine 06/28/21 documented as of this encounter
--- OUTSIDE RECORDS SUMMARY | 2025-06-17 13:08 | XMS_ITS | Encounter Summary ---
Author Organization [facility] Address [address] [place] [address] Care Team Providers Care Freezer Tunnel Operator Name Role Phone Grisel Castillo DO Primary Care Pro vider Unavailable Rod Pires MD Primary Care Provide r Unavailable Grisel Castillo DO Primary Care Pro vider Unavailable Jimenez Hernandez DO Primary Care Provider [facility], Pcp Primary Care Provider Unavailabl e Encounter Details Date Type Department Care Team Description 03/02/2016 Controlled Substance Contract with Plan Medical Records [address] [place] [id number] Abstract, Provider Social History Tobacco Use Types [...] on filedocumented in this encounter Care Teams Freezer Tunnel Operator Relationship Specialty Start Date End Date Grisel Castillo DO PCP - General Internal Medicine 10/30/15 07/19/16 Rod Pires MD PCP - General Internal Medicine 07/20/16 1 Grisel Castillo DO PCP - General Internal Medicine 08/02/16 03/22/21 Jimenez Hernandez DO PCP - General Internal Medicine 03/23/21 1 [facility], Pcp PCP - General Internal Medicine 06/28/21 documented as of this encounter
--- OUTSIDE RECORDS SUMMARY | 2025-06-17 13:08 | XMS_ITS | Encounter Summary ---
Author Organization [facility] Address [address] [place] [address] Care Team Providers Care Unarmed Security Guard Name Role Phone Grisel Castillo DO Primary Care Pro vider Unavailable Jimenez Hernandez DO Primary Care Provider Patricia Godinez Pcp Primary Care Provider Unavailabl e Encounter Details Date Type Department Care Team Description 01/26/2018 Pattern Drum Maker Report Medical Records [address] [place] [address] Re[facility] [place] Social History Tobacco Use Types Packs/Day Years [...] on filedocumented in this encounter Care Teams Unarmed Security Guard Relationship Specialty Start Date End Date Grisel Castillo DO PCP - General Internal Medicine 08/02/16 03/22/21 Jimenez Hernandez DO PCP - General Internal Medicine 03/23/21 Desmond Godinez PCP - General Internal Medicine 06/28/21 documented as of this encounter
--- OUTSIDE RECORDS SUMMARY | 2025-06-17 13:09 | XMS_ITS | Encounter Summary ---
Author Organization [facility] Address [address] [place] [address] Care Team Providers Care Glass Production Machine Operator Name Role Phone Grisel Castillo DO Primary Care Pro vider Unavailable Jimenez Hernandez DO Primary Care Provider Patricia Godinez, Pcp Primary Care Provider Unavailabl e Encounter Details Date Type Department Care Team Description 05/28/2020 Release of Information Medical Records [address] [place] [id number] Abstract, Provider Social History Tobacco Use Types [...] on filedocumented in this encounter Care Teams Glass Production Machine Operator Relationship Specialty Start Date End Date Grisel Castillo DO PCP - General Internal Medicine 08/02/16 03/22/21 Jimenez Hernandez DO PCP - General Internal Medicine 03/23/21 1 Desmond Godinez PCP - General Internal Medicine 06/28/21 documented as of this encounter
--- OUTSIDE RECORDS SUMMARY | 2025-06-17 13:09 | XMS_ITS | Encounter Summary ---
Author Organization [facility] Address [address] [place] [address] Care Team Providers Care Parking Supervisor Name Role Phone Grisel Castillo DO Primary Care Pro vider Unavailable Jimenez Hernandez DO Primary [facility] Primary Care Provider Unavailabl e Reason for Visit * Reason Onset Date Comments Provider Call Back 11/10/2017 Encounter Details Date Type Department Care Team Description 11/10/2017 Telephone OBGYN - [place] [address] [place] [address] Charli Hong MD [address] [place] [address] Provider Call Back Social History Tobacco Use [...] encounter Miscellaneous Notes * Telephone Encounter - Mickey Cates - 11/10/2017 11:40 AM EST Patient states that she is returning Dr. Hong's phone call. She is thinking that it is about her biopsy results. documented in this encounter Plan of Treatment Not on file documented as of this encounter Visit Diagnoses Not on filedocumented in this encounter Care Teams Parking Supervisor Relationship Specialty Start Date End Date Grisel Castillo DO PCP - General Internal Medicine 08/02/16 03/22/21 Jimenez Hernandez DO PCP - General Internal Medicine 03/23/21 1 [facility], Pcp PCP - General Internal Medicine 06/28/21 documented as of this encounter
--- OUTSIDE RECORDS SUMMARY | 2025-06-17 13:09 | XMS_ITS | Encounter Summary ---
Author Organization [facility] Address [address] [place] [address] Care Team Providers Care Department Head College Or [employer] Name Role Phone Grisel Castillo DO Primary Care Pro vider Unavailable Jimenez Hernandez DO Primary Care Provider Patricia [facility], Pcp Primary Care Provider Unavailabl e Encounter Details Date Type Department Care Team Description 10/15/2017 Orders Only Adult Medicine [address] [address] Grisel Castillo DO Elevated LFTs (Primary Dx); Elevated ferritin Social History Tobacco Use Types Packs/Day Years [...] on file documented as of this encounter Results * (ABNORMAL) CBC (AUTO DIFF PLATELET) (01/10/2018 10:40 AM EDT) WBC 7.7 4.8 - 10.8 x10-3 01/10/2018 11:04 AM EDT [facility] RBC 4.2 3.8 - 4.8 x10-6 01/10/2018 11:04 AM EDT [facility] HGB 15.3 11.5 - 16.0 g/dl 01/10/2018 11:04 AM EDT [facility] HCT 45.8 35 - 47 % 01/10/2018 11:04 AM EDT [facility] MCV 109.0(H) 79 - 98 fl 01/10/2018 11:04 AM EDT [facility] MCH 36.4(H) 27 - 32 pg 01/10/2018 11:04 AM EDT [facility] MCHC 33.4 32 - 37 g/dl 01/10/2018 11:04 AM EDT [facility] RDW 12.7 11 - 15 % 01/10/2018 11:04 AM EDT [facility] PLT COUNT 210 130 - 400 x10-3 01/10/2018 11:04 AM EDT [facility] MEAN PLATELET VOLUME 10.4 7 - 11 fl 01/10/2018 11:04 AM EDT [facility] NEUT % 57.4 41 - 85 % 01/10/2018 11:04 AM EDT [facility] LYMPH % 30.5 15 - 48 % 01/10/2018 11:04 AM EDT [facility] MONO % 10.3 0 - 12 % 01/10/2018 11:04 AM EDT [facility] EOS % 1.4 0 - 5 % 01/10/2018 11:04 AM EDT [facility] BASO % 0.4 0 - 2 % 01/10/2018 11:04 AM EDT [facility] 01/10/2018 10:4 0 AM EDT 01/10/2018 10:41 AM EDT Grisel Youssef DO LAB Performing Organization Address City/State/[facility] Co de Phone Number [facility] 4 [facility] * FERRITIN ASSAY (01/10/2018 10:40 AM EDT) FERRITIN 330 20 - 350 ng/ml 01/10/2018 1:36 PM EDT [facility] 01/10/2018 10:4 0 AM EDT 01/10/2018 10:41 AM EDT Grisel Simmons Colasacco DO LAB [address] * (ABNORMAL) HEPATIC FUNCTION (LIVER) PANEL (01/10/2018 10:40 AM EDT) TOTAL PROTEIN 6.8 6.0 - 8.3 gm/dL 01/10/2018 1:36 PM EDT [facility] Albumin 4.1 3.2 - 5.6 gm/dL 01/10/2018 1:36 PM EDT [facility] BILI,TOTAL 0.7 0.0 - 1.2 mg/dL 01/10/2018 1:36 PM EDT [facility] BILI,DIRECT 0.2 0.0 - 0.3 mg/dL 01/10/2018 1:36 PM EDT [facility] BILI,INDIRECT 0.5 0.0 - 1.1 mg/dL 01/10/2018 1:36 PM EDT [facility] AST (SGOT) 88(H) 10 - 42 U/L 01/10/2018 1:36 PM EDT [facility] ALT( SGPT) 57 10 - 60 U/L 01/10/2018 1:36 PM EDT [facility] ALK PHOS 89 42 - 121 U/L 01/10/2018 1:36 PM EDT [facility] 01/10/2018 10:4 0 AM EDT 01/10/2018 10:41 AM EDT Grisel Simmons Colasacco DO LAB [address] * (ABNORMAL) LIPID PROFILE (01/10/2018 10:40 AM EDT) Cholesterol 199 0 - 200 mg/dL 01/10/2018 1:36 PM EDT [facility] TRIGLYCERIDES 126 0 - 150 mg/dL 01/10/2018 1:36 PM EDT [facility] HDL CHOLESTEROL 46 >40 mg/dL 8 1:36 PM EDT [facility] LDL CALCULATED 128(H) 0 - 100 mg/dL 01/10/2018 1:36 PM EDT [facility] TC-HDLC RATIO 4 0.0 - 4.4 mg/dL 01/10/2018 1:36 PM EDT [facility] 01/10/2018 10:4 0 AM EDT 01/10/2018 10:41 AM EDT Grisel Youssef DO LAB Performing Organization Address City/State/[facility] Co de Phone Number [facility] [address] [facility] documented in this encounter Visit Diagnoses Diagnosis Elevated LFTs- Primary Other abnormal blood chemistry Elevated ferritin Other abnormal blood chemistry documented in this encounter Care Teams Department Head [employer] Relationship Specialty Start Date End Date Grisel Castillo DO PCP - General Internal Medicine 08/02/16 03/22/21 Jimenez Hernandez DO PCP - General Internal Medicine 03/23/21 1 [facility], Pcp PCP - General Internal Medicine 06/28/21 documented as of this encounter
--- OUTSIDE RECORDS SUMMARY | 2025-06-17 13:09 | XMS_ITS | Encounter Summary ---
Author Organization [facility] Address [address] [place] [address] Care Team Providers Care Feed Research Technician Name Role Phone Grisel Castillo DO Primary Care Pro vider Unavailable Jimenez Hernandez DO Primary Care Provider aPtricia Godinez, Pcp Primary Care Provider Unavailabl e Encounter Details Date Type Department Care Team Description 04/17/2017 Release of Information Medical Records [address] [place] [address] Abstract, Provider Social History Tobacco Use Types [...] on filedocumented in this encounter Care Teams Feed Research Technician Relationship Specialty Start Date End Date Grisel Castillo DO PCP - General Internal Medicine 08/02/16 03/22/21 Jimenez Hernandez DO PCP - General Internal Medicine 03/23/21 1 Gretchen, Pcp PCP - General Internal Medicine 06/28/21 documented as of this encounter
--- OUTSIDE RECORDS SUMMARY | 2025-06-17 13:09 | XMS_ITS | Encounter Summary ---
Author Organization [facility] Address [address] [place] [address] Care Team Providers Care Hoof Trimmer Name Role Phone Grisel Castillo DO Primary Care Pro vider Unavailable Jimenez Hernandez DO Primary Care Provider Patricia rodriguez [facility], Pcp Primary Care Provider Unavailabl e Encounter Details Date Type Department Care Team Description 08/24/2017 Waste Baler Report Medical Records [address] [place] [address] Nadir Casey MD Social History Tobacco Use Types Packs/Day Years [...] on filedocumented in this encounter Care Teams Hoof Trimmer Relationship Specialty Start Date End Date Grisel Castillo DO PCP - General Internal Medicine 08/02/16 03/22/21 Jimenez Hernandez DO PCP - General Internal Medicine 03/23/21 Gretchen, Desmond PCP - General Internal Medicine 06/28/21 documented as of this encounter
--- OUTSIDE RECORDS SUMMARY | 2025-06-17 13:09 | XMS_ITS | Encounter Summary ---
Author Organization [facility] Address [address] [place] [address] Care Team Providers Care Material Expeditor Name Role Phone Grisel Castillo DO Primary Care Pro vider Unavailable Jimenez Hernandez DO Primary Care Provider Patricia [facility], Pcp Primary Care Provider Unavailabl e Encounter Details Date Type Department Care Team Description 11/08/2017 Orders Only Medical Records [address] [place] [address] Charli Metz MD [address] [place] [address] Social History Tobacco Use Types Packs/Day Years [...] on file documented as of this encounter Procedures Procedure Name Priority Date/Time Associated Diagnosis Comments OUTSIDE PATHOLOGY Routine 11/03/2017 documented in this encounter Results * OUTSIDE PATHOLOGY (11/03/2017) Charli Metz MD OUTSIDE LAB documented in this encounter Visit Diagnoses Not on filedocumented in this encounter Care Teams Material Expeditor Relationship Specialty Start Date End Date Grisel Castillo DO PCP - General Internal Medicine 08/02/16 03/22/21 Jimenez Hernandez DO PCP - General Internal Medicine 03/23/21 1 Gretchen, Desmond PCP - General Internal Medicine 06/28/21 documented as of this encounter
--- OUTSIDE RECORDS SUMMARY | 2025-06-17 13:09 | XMS_ITS | Encounter Summary ---
Author Organization [facility] Address [address] [place] [address] Care Team Providers Care Rock Wool Applicator Name Role Phone Grisel Castillo DO Primary Care Pro celestiner Jimenez Dao DO Primary Care Provider [facility], Pcp [facility] Encounter Details Date Type Department Care Team Description 10/29/2017 Telephone Adult Urgent Care - [address] [address] Grisel Castillo DO Social History Tobacco Use [...] encounter Miscellaneous Notes * Telephone Encounter - Demar Varela L.P.NDaniela - 10/29/2017 12:18 PM EST Follow up night triage call Telephone Information: Home Phone Not on file. Called patient left message for patient to call triage nurse documented in this encounter Plan of Treatment Not on file documented as of this encounter Visit Diagnoses Not on filedocumented in this encounter Care Teams Rock Wool Applicator Relationship Specialty Start Date End Date Grisel Castillo DO PCP - General Internal Medicine 08/02/16 03/22/21 Jimenez Hernandez DO PCP - General Internal Medicine 03/23/21 1 [facility], Pcp PCP - General Internal Medicine 06/28/21 documented as of this encounter
--- OUTSIDE RECORDS SUMMARY | 2025-06-17 13:09 | XMS_ITS | Encounter Summary ---
Author Organization [facility] Address [address] [place] [address] Care Team Providers Care Pneumatic Jacketer Name Role Phone Grisel Castillo DO Primary Care Pro vider Unavailable Jimenez Hernandez DO Primary Care Provider Patricia rodriguez [facility], Pcp Primary Care Provider Unavailabl e Encounter Details Date Type Department Care Team Description 01/02/2018 Paper Steamer Report Medical Records [address] [place] [address] Nadir Casey MD Social History Tobacco Use [...] on filedocumented in this encounter Care Teams Pneumatic Jacketer Relationship Specialty Start Date End Date Grisel Castillo DO PCP - General Internal Medicine 08/02/16 03/22/21 Jimenez Hernandez DO PCP - General Internal Medicine 03/23/21 Gretchen, Pcp PCP - General Internal Medicine 06/28/21 documented as of this encounter
--- OUTSIDE RECORDS SUMMARY | 2025-06-17 13:09 | XMS_ITS | Encounter Summary ---
Author Organization [facility] Address [address] [place] [address] Care Team Providers Care Kindergarten Paraprofessional Name Role Phone Grisel Castillo DO Primary Care Pro vider Unavailable Jimenez Hernandez DO Primary Care Provider Patricia [facility], Pcp Primary Care Provider Unavailabl e Reason for Visit * Reason Onset Date Comments Medication 10/30/2017 Encounter Details Date Type Department Care Team Description 10/30/2017 Telephone OBGYN - [place] [address] [place] [address] Charli Metz MD [address] [place] [address] Medication Social History Tobacco Use Types Packs/Day Years [...] encounter Miscellaneous Notes * Telephone Encounter - ABBEY Cates, AUDI - 10/30/2017 3:15 PM EST routing to Pended pharmacy * Telephone Encounter - Frida Bahena - 10/30/2017 2:56 PM EST Chief Complaint/problem: Patient states she discussed medication today to stop bleeding and refusedit. She would now like to start it How long has the patient had this problem? Pt???s APPLICATION DEVELOPMENT PROJECT MANAGER provider: Charli Metz M.D. Last menstrual period (LMP) or EDC (due date): N/A documented in this encounter Plan of Treatment Not on file documented as of this encounter Visit Diagnoses Not on filedocumented in this encounter Care Teams Kindergarten Paraprofessional Relationship Specialty Start Date End Date Grisel Castillo, PCP - General Internal Medicine 08/02/16 03/22/21 Jimenez Hernandez DO PCP - General Internal Medicine 03/23/21 1 [facility], Pcp PCP - General Internal Medicine 06/28/21 documented as of this encounter
--- OUTSIDE RECORDS SUMMARY | 2025-06-17 13:09 | XMS_ITS | Encounter Summary ---
Author Organization [facility] Address [address] [place] [address] Care Team Providers Care Dental Ceramist Name Role Phone Grisel Castillo DO Primary Care Pro vider Unavailable Jimenez Hernandez DO Primary Care Provider Patricia [facility], Pcp Primary Care Provider Unavailabl e Reason for Visit * Reason Onset Date Comments REFERRAL 09/13/2017 Encounter Details Date Type Department Care Team Description 09/13/2017 Telephone Radiology - [address] [address] Nguyen Marin DPM REFERRAL Social History Tobacco Use Types Packs/Day [...] encounter Miscellaneous Notes * Telephone Encounter - Nu Conn - 09/13/2017 9:03 AM EST Patient was referred to Podiatry re: Reason for referral: Problem visit for pain in right ankle and foot persists after inversion in April Patient no showed an appointment. Tried to contact patient several times by phone with no response.Will remove patient from referral report--FYI documented in this encounter Plan of Treatment Not on file documented as of this encounter Visit Diagnoses Not on filedocumented in this encounter Care Teams Dental Ceramist Relationship Specialty Start Date End Date Grisel Castillo DO PCP - General Internal Medicine 08/02/16 03/22/21 Jimenez Hernandez DO PCP - General Internal Medicine 03/23/21 1 [facility], Pcp PCP - General Internal Medicine 06/28/21 documented as of this encounter
--- OUTSIDE RECORDS SUMMARY | 2025-06-17 13:09 | XMS_ITS | Encounter Summary ---
Author Organization [facility] Address [address] [place] [address] Care Team Providers Care Pharmacist Critical Care Name Role Phone Grisel Castillo DO Primary Care Pro vider Unavailable Jimenez Hernandez DO Primary Care Provider Patricia Godinez, Pcp Primary Care Provider Unavailabl e Encounter Details Date Type Department Care Team Description 08/31/2017 [facility] Medical Records [address] [place] [address] Abstract, Provider Social History Tobacco Use Types [...] on filedocumented in this encounter Care Teams Pharmacist Critical Care Relationship Specialty Start Date End Date Grisel Castillo DO PCP - General Internal Medicine 08/02/16 03/22/21 Jimenez Hernandez DO PCP - General Internal Medicine 03/23/21 1 Gretchen, Pcp PCP - General Internal Medicine 06/28/21 documented as of this encounter
--- OUTSIDE RECORDS SUMMARY | 2025-06-17 13:09 | XMS_ITS | Encounter Summary ---
Author Organization [facility] Address [address] [place] [address] Care Team Providers Care Student Services Coordinator Name Role Phone Grisel Castillo DO Primary Care Pro vider Unavailable Jimenez Hernandez DO Primary Care Provider Patricia Godinez, Pcp Primary Care Provider Unavailabl e Encounter Details Date Type Department Care Team Description 10/29/2017 Night Triage Doc Medical Records [address] [place] [address] Abstract, Provider Social History Tobacco Use Types [...] on filedocumented in this encounter Care Teams Student Services Coordinator Relationship Specialty Start Date End Date Grisel Castillo DO PCP - General Internal Medicine 08/02/16 03/22/21 Jimenez Hernandez DO PCP - General Internal Medicine 03/23/21 1 Gretchen, Pcp PCP - General Internal Medicine 06/28/21 documented as of this encounter
== END 2025-06-17 11:25 | disposition home or self-care (01) ==
LOC: HO.MAMMO 11:24
PROVIDERS: PCP Nurse Practitioner Family; Visit Provider Nurse Practitioner Family
DX: N63.15 Unspecified lump in the right breast, overlapping quadrants (principal)
CPT/HCPCS: 76642; 77062; 77066

== ENCOUNTER → 2025-06-17 12:00 | Outpatient (BNV) | payer OTHER, SELFPAY | PROVIDERS: PCP Nurse Practitioner Family; Visit Provider Radiology Body Imaging | DX: N64.4 Mastodynia (principal); R92.8 Other abnormal and inconclusive findings on diagnostic imaging of breast | CPT/HCPCS: 76642; 77062; 77066 ==

== ENCOUNTER 2025-06-23 11:22 | Outpatient (AMB) | payer OTHER, SELFPAY ==
--- NOTE | 2025-06-23 11:26 | A.OFFVIS_ITS ---
Vital Signs 06/23/25 11:35 Height 5 ft 5 in Weight 236 lb BMI 39.3 BP 138/62 Blood Pressure Location Rt radial Position Sitting Pulse 99 Intake Visit Reasons: US guided Bx breast 9 o'clock Intake Note: Patient seen in office today for UX bx CONSULT, rt breast focal asymmetry in the upper outer quadrant that extends for approximately 8 cm from the nipple. Patient c/o: states lesion noted on US is a cyst, I can feel lump on Rt breast. Would like to have it removed. Tender to touch. Hx of cysts in groin and under breasts. No family hx of breast CA. Biopsy: 07-01-25 @ 10am. Jail Guard Required: No Accompanied by: Self / Same As Patient Allergies shellfish derived (SHELLFISH DERIVED) Allergy (Severe, Verified 06/23/25 11:31) anaphylaxis phenazopyridine (From PYRIDIUM) Adverse Reaction (Intermediate, Verified 06/23/25 11:31) VOMITING pregabalin (From LYRICA) Adverse Reaction (Intermediate, Verified 06/23/25 11:31) nausea and vomiting sertraline (From Zoloft) Adverse Reaction (Verified 06/23/25 11:31) suicidal ideation bees Allergy (Mild, Uncoded 06/23/25 11:31) Swelling HPI HPI US guided Bx breast 9 o'clock: Details: 59 year female referred for abnormal mammogram of the right breast. She had a mammogram for mastodynia of the right breast showing focal asymmetry in the right breast in the outer quadrant. She was brought in for targeted ultrasound showing mildly ectatic ducts ill-defined echogenic area 2.4 x 1 cm on the upper outer quadrant. She was therefore recommended to undergo ultrasound- guided biopsy She had her menarche at the age of 13. She had 2 pregnancies which were completed to full term and 1 miscarriage. She had her 1st menses at age of 19. She had menopause at age of 49. She denies any family history of breast cancer. She says she has had by a piece of the left breast about 20 years ago which were benign. [facility] Medical History Abnormal mammogram of right breast History of uterine cancer Lymphedema Tachycardia Essential hypertension Dyslipidemia Morbid obesity Asthma Nicotine dependence, cigarettes, uncomplicated Allergic rhinitis Environmental allergies Vitamin D deficiency, unspecified Diverticulosis Chronic low back pain Peripheral neuropathy Knee pain, right Varicose veins of leg with swelling Anxiety and depression Family history of thyroid disease in mother Immunization declined Surgical History History of History of tubal ligation History of colonoscopy History of appendectomy Family History Father Substance use disorder Social History Housing: Apartment Patient Tobacco Use Status: Former Tobacco user Tobacco use type: Cigarette e-Cigarette/Vaping Use: Never Used service: No Current occupational status: unemployed Cognitive needs: No Hearing needs: No Vision needs: No Review of Systems Const Denies chills and Denies fever(s) Card Denies chest pain, Denies dyspnea and Reports dyspnea on exertion Resp Details: Chronic cough - she is a smoker Denies cough, Denies dyspnea and Reports dyspnea on exertion GI Denies hematochezia and Denies change in bowel habits Denies hematuria Musc Denies back pain and Denies limited range of motion Neuro Denies focal weakness and Denies convulsions Psych Denies depression and Denies mood swings Physical Exam Const Other: Morbidly obese General: comfortable and no acute distress Orientation/consciousness: patient oriented x3 Neck Neck: Yes no lymphadenopathy Chest Other: Very large pendulous breasts with no palpable breast masses, no axillary lymphadenopathy, no nipple or skin changes Resp Auscultation: clear to auscultation bilaterally Cardio Rhythm: regular rhythm GI Palpation (GI): Soft to palpation, nontender and no guarding Neuro General: patient oriented x3 Assessment & Plan Assessment & Plan (1) Abnormal mammogram of right breast: Code(s): R92.8 - Other abnormal and inconclusive findings on diagnostic imaging of breast Category: Medical Plan: She had mastodynia and had a mammogram of the right breast showing an ill- defined echogenic area containing ectatic ducts at the upper outer quadrant, about 2.4 cm x 1 cm. An ultrasound-guided biopsy was recommended. I explained to her the technique of this procedure I will see her again in the office to discuss the path report. Orders: Orders US breast ndl core biopsy RT Today R92.8 - Other abnormal and inconclusive findings on diagnostic imaging of breast Coding Level of Care Code New Pt Level 3 (27228) Diagnoses Abnormal mammogram of right breast R92.8
[2025-06-23 11:35] VITALS: BP 138/62; PULSE 99; BMI 39.3
--- OUTSIDE RECORDS SUMMARY | 2025-06-23 14:06 | XMS_ITS | Clinical Summary ---
[facility] Address [address] [place] [address] Care Team Providers Care Trade Sales Assistant Name Role Phone Unavailable Primary Care Provider Unavailabl e Surgical History Surgery Date Site/Laterality Comments APPENDECTOMY PROCEDURE: WA APPENDECTOMY CERVICAL BIOPSY W/ LOOP ELECTRODE EXCISION PROCEDURE: HISTORICAL CONE BIOPSY TUBAL LIGATION PROCEDURE: HISTORICAL TUBAL LIGATION OTHER SURGICAL HISTORY 05.08.14 PROCEDURE: MAMMOGRAM MYOMECTOMY 2010 PROCEDURE: WA LAPS MYOMECTOMY EXC 1-4 MYOMAS 250 GM/<; COMMENT: Horta- laparoscopic HYSTEROSCOPY 11/03/2017 PROCEDURE: WA HYSTEROSCOPY BX ENDOMETRIUM&/POLYPC W/WO D&C BREAST BIOPSY 2000 Left PROCEDURE: BX BREAST; PERC NEEDLE CORE W/IMAG GUID; COMMENT: neg x 3 BREAST SURGERY 2000 Left PROCEDURE: WA UNLISTED PROCEDURE BREAST; COMMENT: 3 exc bx [...] Date Smoking Tobacco: Every Day Cigarettes 0.5 39.6 Started: 11/29/1985 Smokeless Tobacco: Current Alcohol Use [...]
== END 2025-06-23 11:45 | disposition home or self-care (01) ==
LOC: HO.HGS 11:23
PROVIDERS: PCP Nurse Practitioner Family; Visit Provider Surgery
DX: R92.8 Other abnormal and inconclusive findings on diagnostic imaging of breast (principal)
CPT/HCPCS: 99203

== ENCOUNTER → 2025-06-23 11:22 | Outpatient (BNVA) | payer OTHER, SELFPAY | PROVIDERS: PCP Nurse Practitioner Family; Visit Provider Surgery | DX: Z71.2 Person consulting for explanation of examination or test findings (principal); N64.4 Mastodynia; R92.8 Other abnormal and inconclusive findings on diagnostic imaging of breast | CPT/HCPCS: 99202 ==

== ENCOUNTER 2025-09-29 11:18 | Outpatient (AMB) | payer OTHER, SELFPAY ==
[2025-09-29 11:26] VITALS: BP 102/58; PULSE 103; RESP 16; O2SAT 100; BMI 38.4
--- NOTE | 2025-09-29 11:26 | A.OFFPC_ITS ---
Vital Signs 09/29/25 11:26 09/29/25 12:24 Height 5 ft 5 in Weight 231 lb BMI 38.4 BP 102/58 L Blood Pressure Location Lt brachial Position Sitting Respiration 16 Pulse 103 H 94 Pulse Source Pulse Oximeter Pulse Oximetry (%) 100 Oxygen Delivery Method Room Air Intake Visit Reasons: 6m follow up Allergies shellfish derived (SHELLFISH DERIVED) Allergy (Severe, Verified 06/23/25 11:31) anaphylaxis phenazopyridine (From PYRIDIUM) Adverse Reaction (Intermediate, Verified 06/23/25 11:31) VOMITING pregabalin (From LYRICA) Adverse Reaction (Intermediate, Verified 06/23/25 11:31) nausea and vomiting sertraline (From Zoloft) Adverse Reaction (Verified 06/23/25 11:31) suicidal ideation bees Allergy (Mild, Uncoded 06/23/25 11:31) Swelling Tobacco use date assessed: 03/31/25 Dental Screening Dental Screen Date: 03/31/25 HPI 6m follow up HPI Details Chief Complaint The patient presents for a generalized follow-up and reports congestion and a cough for the past three weeks. History of Present Illness The patient is a 60-year-old female presenting for a generalized follow-up visit. She missed her previous PFT appointment and canceled her low-dose CT scan. She reports having congestion and a cough for approximately three weeks, with clear mucus. She has been taking Mucinex with minimal relief. She reports no fe vers or chills but notes some increased shortness of breath. She reports a slight tremor, which is more pronounced on the left side, especially when her hands are extended. The patient is morbidly obese. She continues to smoke but reports she has reduced her intake to half a pack per day and is not interested in quitting completely. Social History - Tobacco Use: The patient continues to smoke but reports having reduced her consumption to half a pack per day. - Tobacco Cessation: The patient is not interested in quitting completely. Health Maintenance - The patient previously canceled a low- dose CT scan. - She missed a prior PFT appointment. -declines vaccinations Review of Systems - Constitutional: Denies fevers and chil ls. - Respiratory: Reports congestion, cough for 3 weeks, and increased shortness of breath. - Neurological: Reports a slight tremor, more pronounced on the left than the right, especially with hands outstretched. - denies KELLER, dizziness Physical Exam General: Cooperative, healthy appearing, comfortable, no acute distress and well developed, morbidly obese Orientation: Patient oriented x3 Limitations: No limitations Head: Normal to inspection Ears: Hearing grossly normal bilaterally Nose: Normal external nose present Face and sinus: Normal facial exam Eyes: Appearance normal, both eyes and all related structures Neck: Normal visual inspection and Yes full ROM Respiratory: Lungs are fairly clear by auscultation Cardiovascular: Regular rate and rhythm. Normal S1 and S2 GI: Normal to inspection. Soft to palpation and nontender Skin: No rashes or lesions noted Neuro: Patient oriented x3, slight tremor noted, much more pronounced on the left side, especially with hands out Extremities: Normal to inspection Results Plan 1. Tremor The patient reports a slight tremor, greater on the left than the right, particularly when her hands are outstretched. A referral will be made to neurology for further evaluation. 2. Cough The patient has had a cough and congestion with clear mucus for about three weeks. She has used Mucinex with minimal benefit. 3. Tobacco Use The patient continues to smoke but has reduced her use to half a pack per day. She is not interested in quitting completely at this time. re-entered LDCT and PFTs Discussion Notes I discussed the patient's tremor, noting it is more prominent on the left. I informed her that a referral to neurology for further evaluation of the tremor is recommended. Patient Instructions - A referral will be made to a neurology specialist for further evaluation of your tremor. [facility] Medical History Abnormal mammogram of right breast History of uterine cancer Lymphedema Tachycardia Essential hypertension Dyslipidemia Morbid obesity Asthma Nicotine dependence, cigarettes, uncomplicated Allergic rhinitis Environmental allergies Vitamin D deficiency, unspecified Diverticulosis Chronic low back pain Peripheral neuropathy Knee pain, right Varicose veins of leg with swelling Anxiety and depression Family history of thyroid disease in mother Immunization declined Surgical History History of History of tubal ligation History of colonoscopy History of appendectomy Family History Father Substance use disorder Social History Housing: Apartment Patient Tobacco Use Status: Former Tobacco user Tobacco use type: Cigarette e-Cigarette/Vaping Use: Never Used service: No Current occupational status: unemployed Cognitive needs: No Hearing needs: No Vision needs: No Questionnaire Thrive Questionnaire Date Thrive assessed: 03/28/25 I am a: Patient What is your living situation today?: I have a steady place to live Within the past 12 months, did the food you bought not last and you didn't have the money to get more?: Sometimes True Within the past 12 months, did you worry whether your food would run out before you got money to buy more?: Sometimes True Do you have trouble paying for medicines?: No Do you have trouble getting transportation to medical appointments?: Yes Do you have trouble paying your heating and electricity bill?: No Do you have trouble taking care of your child, family member or friend?: No Do you have trouble with day-to-day activities such as bathing, preparing meals, shopping, managing finances, etc.?: Yes Are you currently unemployed and looking for a job?: No Are you interested in more education?: No Currently or been in a relationship where the following occur: No concerns reported THRIVE Score: 3 PRASHANTH-7 AMB Questionnaire PRASHANTH-7 Date PRASHANTH - 7 assessed: 03/31/25 Source: Developed by Drs. Jimenez Kahn, Harleen Quach, Cedric Mederos and colleagues, with an educational jonathan from [employer]. Physical exam (Primary Care) Vital Signs: Last Vital Signs Pulse 103 H 09/29/25 11:26 Resp 16 09/29/25 11:26 BP 102/58 L 09/29/25 11:26 Pulse Ox 100 09/29/25 11:26 Oxygen Delivery Method Room Air 09/29/25 11:26 BMI result Body Mass Index 38.4 Tobacco/Smoking Status: Tobacco use Status Tobacco use date assessed 03/31/25 09/29/25 11:28 Patient Tobacco Use Status Former Tobacco user 09/29/25 11:28 Tobacco use type Cigarette 09/29/25 11:28 e-Cigarette/Vaping Use Never Used 09/29/25 11:28 Thrive Assessment: Date of Thrive Assessment Date Thrive assessed 06/13/25 12/15/25 11:28 Currently or been in a relationship where the following occur: No concerns reported Coding Level of Care Code Est Pt Level 3 (48787) Diagnoses Cough R05.9 Nicotine dependence, cigarettes, uncomplicated F17.210 Tremor of hand R25.1 Assessment & Plan Assessment & Plan (1) Cough: Code(s): R05.9 - Cough, unspecified Category: Medical (2) Nicotine dependence, cigarettes, uncomplicated: Code(s): F17.210 - Nicotine dependence, cigarettes, uncomplicated Category: Medical (3) Tremor of hand: Code(s): R25.1 - Tremor, unspecified Category: Medical Plan . Orders: Orders AMB Hemoglobin A1c Today Z13.9 - Encounter for screening, unspecified XR chest 2V Today R05.9 - Cough, unspecified PFT pulmonary function test Today F17.210 - Nicotine dependence, cigarettes, uncomplicated, R05.9 - Cough, unspecified Referrals Neurology Referral R25.1 - Tremor, unspecified
[2025-09-29 12:24] VITALS: PULSE 94
== END 2025-09-29 12:20 | disposition home or self-care (01) ==
LOC: HO.HMCC 11:19
PROVIDERS: PCP Nurse Practitioner Family; Visit Provider Nurse Practitioner Family
DX: R05.9 Cough, unspecified (principal); F17.210 Nicotine dependence, cigarettes, uncomplicated; R25.1 Tremor, unspecified

== ENCOUNTER → 2025-09-29 11:18 | Outpatient (BNVA) | payer OTHER, SELFPAY | PROVIDERS: PCP Nurse Practitioner Family; Visit Provider Nurse Practitioner Family | DX: R06.02 Shortness of breath (principal); E66.01 Morbid (severe) obesity due to excess calories; R05.9 Cough, unspecified; R25.1 Tremor, unspecified; J44.9 Chronic obstructive pulmonary disease, unspecified; F17.210 Nicotine dependence, cigarettes, uncomplicated; Z68.38 Body mass index [BMI] 38.0-38.9, adult | CPT/HCPCS: 99212 ==